=== PATIENT | female | born 1995 | race Caucasian/White ===

== ENCOUNTER 2020-09-10 09:54 | Emergency (ER) | payer OTHER, MEDICAID, SELFPAY ==
[2020-09-10 10:03] VITALS: PULSE 77; RESP 22; O2SAT 100
[2020-09-10 10:05] VITALS: BP 122/71; PULSE 72; RESP 18; TEMP 36.8; O2SAT 100; BMI 33.4
--- NOTE | 2020-09-10 10:27 | ED_ITS ---
HPI - General Adult General Chief complaint: Dizziness Stated complaint: 14wks , N/V, Hx lupus Time Seen by Provider: 09/10/20 09:56 Source: patient Mode of arrival: Ambulatory Limitations: no limitations History of Present Illness HPI narrative: Patient is a 25-year-old female is a at approximately 16 weeks EGA with a history of PTSD and migraines and lupus and seizures. She is not currently followed by primary doctor. 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 She states that during her workup in [facility] there was question of the diagnosis of lupus. She has had migraines since she was 5 years old. She does have an OB provider here in the local area and has had 1 visit up to this point. She currently has Unisom and B6 for nausea however has not taken it in the past week because she states it causes her to have ?night terrors? she also has vitamins. Is here for evaluation of the past couple days of having unsteadiness, some confusion, some concerns about knowing where she is. She also has had decreased oral intake. Is currently feeling nauseous. Is not having any vomiting or change in bowel habits. Related Data Home Medications Medication Instructions Recorded Confirmed doxylamine succinate 25 mg tablet 25 mg PO BEDTIME PRN 08/12/20 08/14/20 prenat.vits,paulo,[id number] 1 tab PO DAILY 08/12/20 08/14/20 pyridoxine (vitamin B6) 25 mg 25 mg PO DAILY 08/12/20 08/14/20 tablet Previous Rx's Medication Instructions Recorded ondansetron HCl [Zofran] 4 mg PO Q6H PRN #14 tab 09/10/20 Allergies Allergy/AdvReac Type Severity Reaction Status Date / Time banana Allergy Severe Swelling Verified 09/10/20 10:37 to throat - extreme venom-honey bee Allergy Severe Swelling Verified 09/10/20 10:37 and SOB diphenhydramine Allergy Intermediate Itchy Verified 09/10/20 10:37 [From Benadryl Allergy] feeling to throat : makes me freak out Review of Systems Constitutional Constitutional: Denies fever(s) ENT Ears, Nose, Mouth, and Throat: Denies vertigo, Reports dizziness and Reports disequilibrium Cardiovascular Cardiovascular: Denies chest pain and Denies dyspnea Respiratory Respiratory: Denies dyspnea Gastrointestinal Gastrointestinal: Denies abdominal pain, Denies change in bowel habits, Reports nausea and Denies vomiting Genitourinary Genitourinary: Denies dysuria Genitourinary: Denies dysuria and Denies vaginal discharge Musculoskeletal Musculoskeletal: Denies arthralgias and Denies myalgias Integumentary/Breasts Skin/Breast: Denies rash Neurologic Neurologic: Reports confusion, Denies vertigo, Reports dizziness and Reports disequilibrium Psychiatric Psychiatric: Reports confusion Hematologic/Lymphatic On Anticoagulants: No Allergic/Immunologic Allergic/Immunologic: Denies urticaria Patient History Medical History Acne (~2006) ADHD (~2011) Allergies (~2001) Anemia (~2002) Ankle fracture (~2004) Ankle pain (~2006) Anxiety (~1997) Aspergers' syndrome Asthma (~2005) Autism (~2015) Carpal tunnel syndrome (~2011) Chronic back pain (~2006) Depression (~2000) Disordered eating Eczema (~2004) Fatigue Finger fracture, left (~2007) Foot pain (~2006) Headache (~1998) Heavy menstrual period (~2004) History of being hospitalized (~2009) History of bipolar disorder (~2008) History of lumbar puncture (~2011) Hypertension (~2017) Joint pain (~2000) Kidney stones (~2013) Lupus (~2000) Marijuana use in remission (~05/2020) Migraine (~1998) Painful menstrual periods (~2006) Partial blindness (~2009) Pneumonia PTSD (post-traumatic stress disorder) (~2005) Seizure Shoulder pain (~2007) Smoker Social anxiety disorder (~1997) Syncopal episodes (~2018) Vertigo (~2013) Surgical History (Updated 08/12/20 @ 21:28 by Jaz Quinn) Anesthesia H/O dilation and curettage (~2009) S/P tonsillectomy and adenoidectomy (~1999) Status post laser lithotripsy of ureteral calculus (~2013) Surgical procedure planned Family History (Updated 08/12/20 @ 21:30 by Jaz Quinn) Mother Respiratory abnormalities Asthma History of prediabetes Bipolar 1 disorder Diabetes mellitus History of heart disease Mental health problem Father Family estrangement PTSD (post-traumatic stress disorder) Hypertension Mental health problem Grandmother Respiratory abnormalities Grandfather CVA (cerebral vascular accident) Rib fracture History of prediabetes High blood sugar Heart palpitations Alcohol addiction Depression Grandmother Family estrangement Grandfather Family estrangement Brother Asthma Family/Other Bipolar 1 disorder Social History marital status: unmarried,living together number of children: 0 household members: significant other lives independently: Yes pets and animals: No education level: high school (Working on GED) occupational status: employed ([employer] ) current occupational exposures/hazards: Yes special med needs: No Smoking Status: Former smoker (Started at age 3 : Quit 2017) Tobacco: How many years used: 20 second hand exposure: No alcohol intake: former (pre- : rare ) substance use type: does not use and marijuana (Quit with diagnosis) Smoking Status: Former smoker (Started at age 3 : Quit 2017) Exam Initial Vital Signs Initial Vital Signs: Vital Signs Pulse Rate 77 09/10/20 10:03 Respiratory Rate 22 09/10/20 10:03 Pulse Oximetry 100 09/10/20 10:03 Const General: cooperative, healthy appearing, comfortable and well developed Limitations: mental status not altered HENMT Head: normal to inspection and normocephalic Resp Effort & Inspection: normal respiratory effort Auscultation: clear to auscultation bilaterally Cardio Rate: regular rate Rhythm: regular rhythm GI Palpation: soft and No tender Skin Lesions: no lesions Rashes: no rashes Neuro General: patient alert and patient awake Cognition: normal cognition Speech: speech normal Extrem General: capillary refill normal Psych Appearance: grossly normal and well kempt Scores GCS [place] coma scale eye opening: Spontaneous Joy coma scale motor response: Obey commands Course Orders Ordered: ED Orders 09/10/20 09:57 EKG-12 Lead Stat 09/10/20 10:44 Complete Blood Count AUTO DIFF Stat Comprehensive Metabolic Panel Stat Ethanol (ETOH) Stat Lipase Stat Discontinued Medications Sodium Chloride (Normal Saline 0.9%) 1,000 mls @ 1,000 mls/hr IV BOLUS ONE Stop: 09/10/20 11:26 Last Admin: 09/10/20 10:42 Dose: 1,000 mls/hr Documented by: SAM Ondansetron HCl (Ondansetron 4 Mg/2 Ml Inj) 4 mg IV NOW ONE Stop: 09/10/20 10:28 Last Admin: 03/17/21 10:42 Dose: 4 mg Documented by: BTONER Vital Signs Vital signs: Vital Signs - 8 hr 09/10/20 10:03 09/10/20 10:05 09/10/20 10:30 Temperature 98.2 F Pulse Rate 77 72 89 Respiratory Rate 22 18 26 H Blood Pressure 122/71 Pulse Oximetry 100 100 99 09/10/20 11:00 09/10/20 11:35 09/10/20 12:00 Temperature Pulse Rate 86 88 86 Respiratory Rate 24 19 Blood Pressure 126/68 135/77 Pulse Oximetry 100 100 100 Medical Decision Making Lab Data Lab results reviewed: Yes I reviewed the patient's lab results. Result diagrams: 09/10/20 10:44 09/10/20 10:44 Labs: Lab Results 09/10/20 09/10/20 Range/Units 10:44 10:44 WBC 10.9 (4.5-11.0) X10^3/uL RBC 5.05 (4.0-5.2) X10^6/uL Hgb 11.4 L (12.0-16.0) g/dL Hct 35.0 L (36-46) % MCV 70.0 L (80-100) fL MCH 22.6 L (26-34) PG MCHC 32.5 (30-36) % RDW 14.6 (11.6-14.8) % Plt Count 192 (150-400) X10^3/uL Neut % (Auto) 73.2 (50-75) % Lymph % (Auto) 18.1 L (25-40) % Barren % (Auto) 6.9 (3-14) % Eos % (Auto) 0.9 L (2-4) % Baso % (Auto) 0.9 (0-2) % Neut # (Auto) 8000 H (7335-0984) /uL Lymph # (Auto) 2000 (2439-3093) /uL Barren # (Auto) 800 (0-900) /uL Eos # (Auto) 100 (0-450) /uL Baso # (Auto) 100 (0-100) /uL Sodium 135 L (137-145) mmol/L Potassium 3.8 (3.4-5.1) mmol/L Chloride 106 (98-107) mmol/L Carbon Dioxide 19 L (22-32) mmol/L BUN 6 L (7-17) mg/dL Creatinine 0.55 (0.52-1.04) mg/dL Estimated GFR > 60.0 (>60) mL/min BUN/Creatinine Ratio 10.9 (6-22) Glucose 86 (70-100) mg/dL Calcium 9.4 (8.4-10.2) mg/dL Total Bilirubin 0.3 (0.2-1.3) mg/dL AST 19 (14-36) IU/L ALT 9 (<35) IU/L Alkaline Phosphatase 49 (38-126) U/L Total Protein 7.4 (6.3-8.2) g/dL Albumin 4.2 (3.5-5.0) g/dL Globulin 3.2 (1.7-4.1) g/dL Albumin/Globulin Ratio 1.3 (1.0-2.8) Lipase 36 (23-300) U/L Ethyl Alcohol < 10 ( - 10) mg/dL Urine Dip Bedside Urine Glucose Negative Bedside Urine Bilirubin - Negative Bedside Urine Ketone +++ 80 Urine Specific [place] 1.020 Bedside Urine Occult Blood - Negative Bedside Urine pH 7.0 Bedside Urine Protein - Negative Bedside Urine Urobilinogen - Negative Bedside Urine Nitrite - Negative Bedside Urine Leukocytes - Negative Esterase Point of care testing: Urine Dip Bedside Urine Glucose Negative Bedside Urine Bilirubin - Negative Bedside Urine Ketone +++ 80 Urine Specific [place] 1.020 Bedside Urine Occult Blood - Negative Bedside Urine pH 7.0 Bedside Urine Protein - Negative Bedside Urine Urobilinogen - Negative Bedside Urine Nitrite - Negative Bedside Urine Leukocytes - Negative Esterase ECG Data Attestation: I personally reviewed and interpreted this ECG as follows: Prior ECG tracings: not available for review Interpretation: Sinus rhythm Normal axis Normal QRS Normal QTC No ST T wave changes MDM Narrative Medical decision making narrative: Patient has a nonfocal neurologic exam she does have a slightly elevated hemoglobin and hematocrit and also ketones in her urine. She also has been fairly nauseous with decreased oral intake. I suspect that many of her symptoms are related to being somewhat dehydrated. She did feel better after fluids. She is tolerating oral intake. Low suspicion for CVA or TIA. She has a follow-up with OB tomorrow. Will send a prescription for Zofran to see if this does not control her nausea somewhat better than the Unisom/B 6. She was given return precautions and follow-up instructions. She expressed understanding and agreement. Discharge Plan Departure Patient Disposition: Home Clinical Impression: , Dehydration Instructions: Nausea and Vomiting-Adult Activity Restrictions/Additional Instructions: I recommend that you keep all of your scheduled medical appointments. Be sure to increase your fluid intake like we discussed. Return to the emergency department for any new or worsening symptoms Prescriptions: New ondansetron HCl [Zofran] 4 mg tablet 4 mg PO Q6H PRN (Reason: nausea and vomiting) Qty: 14 RF: 0 No Action prenat.vits,paulo,[id number] Tablet 1 tab PO DAILY RF: 0 Unisom (doxylamine) 25 mg tablet 25 mg PO BEDTIME PRNRF: 0 pyridoxine (vitamin B6) 25 mg tablet 25 mg PO DAILY RF: 0
[2020-09-10 10:30] VITALS: PULSE 89; RESP 26; O2SAT 99
[2020-09-10] MEDS: SODIUM CHLORIDE 0.9% 1,000 ML 1000 ML IV (10:42)
[2020-09-10] MEDS: ONDANSETRON 4 MG/2 ML INJ IV (10:42)
[2020-09-10 10:53] LABS: Add Manual Diff / Slide Review NO; Basophils Absolute Auto 100 /uL (0-100); Basophils Percent Auto 0.9 % (0-2); Eosinophils Absolute Auto 100 /uL (0-450); Eosinophils Percent Auto 0.9 % (2-4); Hemoglobin 11.4 g/dL (12.0-16.0); Lymphocytes Absolute Auto 2000 /uL (1100-4500); Lymphocytes Percent Auto 18.1 % (25-40); Mean Corpuscular HGB Conc 32.5 % (30-36); Mean Corpuscular Hemoglobin 22.6 PG (26-34); Monocytes Absolute Auto 800 /uL (0-900); Monocytes Percent Auto 6.9 % (3-14); Neutrophils Absolute Auto 8000 /uL (1500-7000); Neutrophils Percent Auto 73.2 % (50-75); Platelet Count 192 X10^3/uL (150-400); Red Blood Cell Count 5.05 X10^6/uL (4.0-5.2); Red Cell Distribution Width 14.6 % (11.6-14.8); White Blood Cell Count 10.9 X10^3/uL (4.5-11.0)
[2020-09-10 11:00] VITALS: PULSE 86; RESP 24; O2SAT 100
[2020-09-10 11:08] LABS: Alanine Aminotransferase 9 IU/L (<35); Albumin 4.2 g/dL (3.5-5.0); Albumin Globulin Ratio 1.3 (1.0-2.8); Alkaline Phosphatase 49 U/L (38-126); Aspartate Aminotransferase 19 IU/L (14-36); BUN Creatinine Ratio 10.9 (6-22); Bilirubin Total 0.3 mg/dL (0.2-1.3); Blood Urea Nitrogen 6 mg/dL (7-17); Calcium 9.4 mg/dL (8.4-10.2); Carbon Dioxide 19 mmol/L (22-32); Chloride 106 mmol/L (98-107); Estimated Glomerular Filt Rate > 60.0 mL/min (>60); Ethanol (ETOH) < 10 mg/dL; Globulin 3.2 g/dL (1.7-4.1); Glucose 86 mg/dL (70-100); HEMOLYSIS < 15 (0-50); Lipase 36 U/L (23-300); Potassium 3.8 mmol/L (3.4-5.1); Sodium 135 mmol/L (137-145); Total Protein 7.4 g/dL (6.3-8.2)
[2020-09-10 11:35] VITALS: BP 126/68; PULSE 88; RESP 19; O2SAT 100
[2020-09-10 12:00] VITALS: BP 135/77; PULSE 86; O2SAT 100
== END 2020-09-10 12:29 | disposition home or self-care (01) ==
PROVIDERS: Emergency Provider Emergency Medicine; Referring Provider Emergency Medicine
DX: O26.92 Pregnancy related conditions, unspecified, second trimester (principal); E86.0 Dehydration; R41.0 Disorientation, unspecified; R11.0 Nausea; Z3A.16 16 weeks gestation of pregnancy
CPT/HCPCS: 36415; 80053; 80320; 81003; 83690; 85025; 93005; 96361; 96374; 99283; 99284; J2405

== ENCOUNTER 2020-09-16 17:18 | Emergency (ER) | payer OTHER, MEDICAID, SELFPAY ==
[2020-09-16] VITALS (16 sets, daily range): BP systolic 99–144; BP diastolic 51–94; PULSE 84–109; RESP 17–28; TEMP 36.6; O2SAT 97–100
--- NOTE | 2020-09-16 18:12 | ED_ITS ---
HPI - Headache General Chief Complaint: Headache Stated Complaint: states dehydration symptoms Time Seen by Provider: 09/16/20 18:12 Source: patient Mode of arrival: Wheelchair Limitations: no limitations History of Present Illness HPI Narrative: Patient is a 25-year-old female who is to I evaluated the emergency department in the past for nausea and vomiting here for evaluation of dehydration symptoms. Also a migraine headache. She is not currently on any migraine medications. She is not febrile. She has not have any abdominal discomfort or vaginal bleeding or loss of fluid. She states the Zofran is working for her somewhat but when she takes a ?too late? her nausea worsens. She does have an appointment in the next 2 days with a new primary doctor and someone who is going to follow her for her OB care. She was initially sent to the walk-in clinic who sent her to the emergency department. Related Data Home Medications Medication Instructions Recorded Confirmed doxylamine succinate 25 mg tablet 25 mg PO BEDTIME PRN 08/12/20 09/11/20 prenat.vits,paulo,knc-sghb-cycub 1 tab PO DAILY 08/12/20 09/11/20 pyridoxine (vitamin B6) 25 mg 25 mg PO DAILY 08/12/20 09/11/20 tablet Previous Rx's Medication Instructions Recorded ondansetron HCl [Zofran] 4 mg PO Q6H PRN #14 tab 09/10/20 hydrocodone 5 mg-acetaminophen 300 1 tab PO Q6H PRN #10 tab 09/11/20 mg tablet hkwgqwqkdb-podsukgjcjmmn-nogd 1 cap PO Q6H PRN #10 cap 09/16/20 [Fioricet] ahkeqbwmme-ffgwlqzfrmvvz-madh 1 cap PO Q6H PRN #10 cap 09/16/20 [Fioricet] Allergies Allergy/AdvReac Type Severity Reaction Status Date / Time banana Allergy Severe Swelling Verified 09/11/20 13:33 to throat - extreme venom-honey bee Allergy Severe Swelling Verified 09/11/20 13:33 and SOB diphenhydramine Allergy Intermediate Itchy Verified 09/11/20 13:33 [From Benadryl Allergy] feeling to throat : makes me freak out Review of Systems Constitutional Constitutional: Reports fatigue, Denies fever(s) and Reports headache(s) ENT Ears, Nose, Mouth, and Throat: Denies vertigo, Denies dizziness and Reports headache(s) Cardiovascular Cardiovascular: Denies chest pain and Denies dyspnea Respiratory Respiratory: Denies dyspnea Gastrointestinal Gastrointestinal: Denies abdominal pain, Reports nausea and Reports vomiting Genitourinary Genitourinary: Denies vaginal discharge Musculoskeletal Musculoskeletal: Denies arthralgias and Denies myalgias Integumentary/Breasts Skin/Breast: Denies rash Neurologic Neurologic: Denies vertigo, Denies dizziness and Reports headache(s) Comments: Feels like she could have a seizure Endocrine Endocrine: Reports fatigue Hematologic/Lymphatic On Anticoagulants: No Patient History Medical History Acne (~2006) ADHD (~2011) Allergies (~2001) Anemia (~2002) Ankle fracture (~2004) Ankle pain (~2006) Anxiety (~1997) Aspergers' syndrome Asthma (~2005) Autism (~2015) Carpal tunnel syndrome (~2011) Chronic back pain (~2006) Depression (~2000) Disordered eating Eczema (~2004) Fatigue Finger fracture, left (~2007) Foot pain (~2006) Headache (~1998) Heavy menstrual period (~2004) History of being hospitalized (~2009) History of bipolar disorder (~2008) History of lumbar puncture (~2011) Hypertension (~2017) Joint pain (~2000) Kidney stones (~2013) Lupus (~2000) Marijuana use in remission (~05/2020) Migraine (~1998) Painful menstrual periods (~2006) Partial blindness (~2009) Pneumonia PTSD (post-traumatic stress disorder) (~2005) Seizure Shoulder pain (~2007) Smoker Social anxiety disorder (~1997) Syncopal episodes (~2018) Vertigo (~2013) Surgical History (Updated 08/12/20 @ 21:28 by Jaz Quinn) Anesthesia H/O dilation and curettage (~2009) S/P tonsillectomy and adenoidectomy (~1999) Status post laser lithotripsy of ureteral calculus (~2013) Surgical procedure planned Family History (Updated 08/12/20 @ 21:30 by Jaz Quinn) Mother Respiratory abnormalities Asthma History of prediabetes Bipolar 1 disorder Diabetes mellitus History of heart disease Mental health problem Father Family estrangement PTSD (post-traumatic stress disorder) Hypertension Mental health problem Grandmother Respiratory abnormalities Grandfather CVA (cerebral vascular accident) Rib fracture History of prediabetes High blood sugar Heart palpitations Alcohol addiction Depression Grandmother Family estrangement Grandfather Family estrangement Brother Asthma Family/Other Bipolar 1 disorder Social History marital status: unmarried,living together number of children: 0 household members: significant other lives independently: Yes pets and animals: No education level: high school (Working on GED) 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 ) current occupational exposures/hazards: Yes special med needs: No Smoking Status: Former smoker Tobacco: How many years used: 20 second hand exposure: No alcohol intake: former (pre- : rare ) substance use type: does not use and marijuana (Quit with diagnosis) Smoking Status: Former smoker tobacco type: cigarettes alcohol intake frequency: 0-2 drinks per day Substance Use Type: does not use Exam Initial Vital Signs Initial Vital Signs: Vital Signs Temperature 97.8 F 09/16/20 17:52 Pulse Rate 86 09/16/20 17:52 Respiratory Rate 18 09/16/20 17:52 Blood Pressure 132/87 09/16/20 17:52 Pulse Oximetry 99 09/16/20 17:52 Const General: cooperative Limitations: mental status not altered HENMT Head: normal to inspection and normocephalic Resp Effort & Inspection: normal respiratory effort Auscultation: clear to auscultation bilaterally Cardio Rhythm: regular rhythm GI Inspection: non-distended Skin Lesions: no lesions Rashes: no rashes Neuro General: patient alert, patient awake and patient oriented x3 Cognition: normal cognition Extrem General: normal to inspection and capillary refill normal Psych Appearance: grossly normal and well kempt Course Orders Ordered: ED Orders 09/16/20 18:15 Complete Blood Count AUTO DIFF Stat Comprehensive Metabolic Panel Stat Lipase Stat 09/16/20 18:51 CT head/brain wo con Stat 09/16/20 19:21 UA dip and micro [Urinalysis and Microscopic] Stat Discontinued Medications Acetaminophen (Acetaminophen 325 Mg Tablet) 650 mg PO NOW ONE Stop: 09/16/20 18:18 Last Admin: 09/16/20 18:23 Dose: 650 mg Documented by: BETH Acetaminophen/Butalbital/Caffeine (Butalb/Apap/Caffeine 50/325/40 Tablet) 1 each PO NOW ONE Stop: 09/16/20 23:30 Last Admin: 09/16/20 23:45 Dose: Not Given Documented by: BETH Sodium Chloride (Normal Saline 0.9%) 1,000 mls @ 1,000 mls/hr IV BOLUS ONE Stop: 09/16/20 19:12 Last Infusion: 09/16/20 20:16 Dose: 0 mls/hr Documented by: Admin: 09/16/20 18:23 Dose: 1,000 mls/hr Documented by: BETH Lorazepam (Lorazepam 2 Mg/Ml Inj) 1 mg IV NOW ONE Stop: 09/16/20 18:52 Last Admin: 09/16/20 18:55 Dose: 1 mg Documented by: BETH Lorazepam (Lorazepam 2 Mg/Ml Inj) 1 mg IV NOW ONE Stop: 09/16/20 20:11 Last Admin: 09/16/20 20:17 Dose: 1 mg Documented by: BETH Lorazepam (Lorazepam 2 Mg/Ml Inj) 1 mg IV NOW ONE Stop: 09/16/20 20:40 Last Admin: 09/16/20 23:45 Dose: Not Given Documented by: BETH Metoclopramide HCl (Metoclopramide 10 Mg/2 Ml Inj) 10 mg IV NOW ONE Stop: 09/16/20 20:12 Last Admin: 09/16/20 20:19 Dose: 10 mg Documented by: BETH Vital Signs Vital signs: Vital Signs - 8 hr 09/16/20 18:57 09/16/20 19:00 09/16/20 19:30 Pulse Rate 109 H 96 H 94 H Respiratory Rate Blood Pressure 144/94 H 131/85 Pulse Oximetry 99 98 100 09/16/20 20:00 09/16/20 20:17 09/16/20 20:30 Pulse Rate 91 H 87 104 H Respiratory Rate 24 Blood Pressure 114/62 107/56 L Pulse Oximetry 99 99 98 09/16/20 21:00 09/16/20 21:30 09/16/20 22:00 Pulse Rate 87 91 H 90 Respiratory Rate Blood Pressure 104/63 109/57 L 104/59 L Pulse Oximetry 98 97 97 09/16/20 22:30 09/16/20 23:00 09/16/20 23:30 Pulse Rate 84 87 91 H Respiratory Rate Blood Pressure 99/55 L 100/51 L 104/61 Pulse Oximetry 98 98 97 MDM - Headache Lab Data Attestation: I reviewed the patient's lab results. Result diagrams: 09/16/20 18:15 09/16/20 18:15 Labs: Lab Results 09/16/20 09/16/20 09/16/20 Range/Units 18:15 18:15 19:21 WBC 15.0 H (4.5-11.0) X10^3/uL RBC 4.92 (4.0-5.2) X10^6/uL Hgb 11.0 L (12.0-16.0) g/dL Hct 34.1 L (36-46) % MCV 69.2 L (80-100) fL MCH 22.3 L (26-34) PG MCHC 32.2 (30-36) % RDW 14.9 H (11.6-14.8) % Plt Count 203 (150-400) X10^3/uL Neut % (Auto) 77.8 H (50-75) % Lymph % (Auto) 14.1 L (25-40) % [place] % (Auto) 6.3 (3-14) % Eos % (Auto) 1.2 L (2-4) % Baso % (Auto) 0.6 (0-2) % Neut # (Auto) 99814 H (0905-8110) /uL Lymph # (Auto) 2100 (0543-3255) /uL [place] # (Auto) 1000 H (0-900) /uL Eos # (Auto) 200 (0-450) /uL Baso # (Auto) 100 (0-100) /uL RBC Morphology Not Reportable Hypochromasia 3+ H Anisocytosis 1+ H Microcytosis 3+ H Sodium 137 (137-145) mmol/L Potassium 4.1 (3.4-5.1) mmol/L Chloride 105 (98-107) mmol/L Carbon Dioxide 25 (22-32) mmol/L BUN 5 L (7-17) mg/dL Creatinine 0.58 (0.52-1.04) mg/dL Estimated GFR > 60.0 (>60) mL/min BUN/Creatinine Ratio 8.6 (6-22) Glucose 88 (70-100) mg/dL Calcium 9.3 (8.4-10.2) mg/dL Total Bilirubin 0.2 (0.2-1.3) mg/dL AST 34 (14-36) IU/L ALT 24 (<35) IU/L Alkaline Phosphatase 48 (38-126) U/L Total Protein 7.0 (6.3-8.2) g/dL Albumin 4.0 (3.5-5.0) g/dL Globulin 3.0 (1.7-4.1) g/dL Albumin/Globulin Ratio 1.3 (1.0-2.8) Lipase 37 (23-300) U/L Urine Color Yellow Urine Appearance Cloudy Urine pH 7.0 (4.5-8.0) Ur Specific [place] 1.015 (1.000-1.035) Urine Protein Negative (Negative) Urine Glucose (UA) Negative (Negative) g/dL Urine Ketones 1+ H (NEGATIVE) Urine Occult Blood Negative (Negative) Urine Nitrate Negative (Negative) Urine Bilirubin Negative (NEGATIVE) Urine Urobilinogen 0.2 (0.2) E.U./dL Ur Leukocyte Esterase Negative (NEGATIVE) Urine RBC None seen (0-5/HPF) Urine WBC None seen (0-5/HPF) Ur Squamous Epith Cells 1-5 /hpf (0-5/HPF) Ur Transition Epith Cell 1-5/hpf (0-5/HPF) Other Crystals 1+ amorphous Urine Bacteria None seen (None) Ur Culture Indicated? Cult not indicated Urine Dip Bedside Urine Glucose Negative Bedside Urine Bilirubin - Negative Bedside Urine Ketone +/- 5 Urine Specific [place] 1.020 Bedside Urine Occult Blood - Negative Bedside Urine pH 7 Bedside Urine Protein - Negative Bedside Urine Urobilinogen - Negative Bedside Urine Nitrite - Negative Bedside Urine Leukocytes - Negative Esterase Imaging Data CT scan - head: Radiologist's Impression: Libia Dennis 25 F [address] [id number] Scan ReportSigned Patient: Libia DennisMR#: [id number]: 1995Acct:[id number]/Sex: 25 / FDate of Service: 09/16/20Loc: EDAccession Number: [id number] Procedure: CT head/brain wo con Ordering Provider: Brian Ocampo D.O. PROCEDURE: CT HEAD/BRAIN WO CON INDICATIONS: headache TECHNIQUE: Noncontrast 4.5 mm thick angled axial sections acquired from the foramen magnum to the vertex, with coronal and sagittal reformats. For radiation dose reduction, the following was used: automated exposure control, adjustment of mA and/or kV according to patient size. COMPARISON: None. FINDINGS: Image quality: Excellent. CSF spaces: Basal cisterns are patent. No extra-axial fluid collections. Ventricles are normal in size and shape. Brain: No midline shift. No intracranial masses or hemorrhage. Vega-white matter interface is normal. Skull and face: Calvarium and visualized facial bones are intact, without baig spicious lesions. Sinuses: Visualized sinuses and mastoids are clear. IMPRESSION: No acute intracranial disease process. Dictated by: Anabella Andre MD, PhD on 09/16/2020 at 19:47 Approved by: Anabella Andre MD, PhD on 09/16/2020 at 19:49 [facility] Narrative Medical decision making narrative: Patient does have a history of migraines and also has a history of seizures although she is not on any medication to prevent these symptoms. She also does not have a neurologist that she sees. She is also 14 weeks but is not having any OB symptoms. She has had some nausea and vomiting and feels dehydrated. She states she feels like that is seizure can come on. She is also having pain behind her eye. Patient had a couple episodes here in the emergency department where it appeared that she was having a seizure she would be shaking and her eyes would roll back in her head but when you would call her name she would look at you when she would answer questions. I do not feel like this was seizure-like activity. Potentially pseudoseizures verses anxiety worse is an atypical migraine. She was given Ativan several times. She was also given Reglan and she did have an uneasy feeling afterwards but this resolved on its on. She states she cannot take Benadryl because it causes her throat to swell. She was given fluids. Does have a leukocytosis but she has also been vomiting and she is . There is no indication of any signs of infection. Head CT was ordered because she has not had a headache like this in some time. Had also given her clinical presentation. Her head CT was unremarkable. Patient was in the emergency department here for an extended period of time. She was able to sleep and when she woke up she stated that she did feel somewhat better. She has an appoin tment with a new primary/OB provider in the next couple days. Give her prescription for Fioricet to try to control her headaches. I would she stated that she felt like that the Zofran will work for her until she sees her primary doctor as long she takes it on time. I will not switch heard any new medication because of this. She was given strict return precautions and follow-up instructions. She expressed understanding and agreement. Discharge Plan Departure Patient Disposition: Home Clinical Impression: Migraine, Instructions: Migraine -- Adult Activity Restrictions/Additional Instructions: Recommend that you continue all of your medications as directed. It is important that you continue to stay hydrated. Keep your appointment with your new primary doctor on . A prescription for an as needed headache medicine was electronically transmitted to [facility] in [place]. Take it as directed and as needed. Return to the emergency department for any new or wo rsening symptoms Prescriptions: New yricjazsno-doxxdhtxfdekm-xexe [Fioricet] 50-300-40 mg capsule 1 cap PO Q6H PRN (Reason: pain) Qty: 10 RF: 0 qwmdmldolq-oixrbbrfwkrzw-pjgu [Fioricet] 50-300-40 mg capsule 1 cap PO Q6H PRN (Reason: pain) Qty: 10 RF: 0 No Action prenat.vits,paulo,mqr-kzns-wopte Tablet 1 tab PO DAILY RF: 0 Unisom (doxylamine) 25 mg tablet 25 mg PO BEDTIME PRNRF: 0 pyridoxine (vitamin B6) 25 mg tablet 25 mg PO DAILY RF: 0 hydrocodone-acetaminophen 5-300 mg tablet 1 tab PO Q6H PRN (Reason: pain) Qty: 10 RF: 0 ondansetron HCl [Zofran] 4 mg tablet 4 mg PO Q6H PRN (Reason: nausea and vomiting) Qty: 14 RF: 0 Referrals: Miscellaneous,Doctor, MD [Primary Care Provider] - Stand Alone Forms: Work Release Note
[2020-09-16] MEDS: ACETAMINOPHEN 325 MG TABLET 650 MG PO (18:23)
[2020-09-16] MEDS: SODIUM CHLORIDE 0.9% 1,000 ML 1000 ML IV (18:23)
[2020-09-16 18:26] LABS: Add Manual Diff / Slide Review NO; Basophils Absolute Auto 100 /uL (0-100); Basophils Percent Auto 0.6 % (0-2); Eosinophils Absolute Auto 200 /uL (0-450); Eosinophils Percent Auto 1.2 % (2-4); Hematocrit 34.1 % (36-46); Lymphocytes Absolute Auto 2100 /uL (1100-4500); Lymphocytes Percent Auto 14.1 % (25-40); Mean Corpuscular HGB Conc 32.2 % (30-36); Mean Corpuscular Hemoglobin 22.3 PG (26-34); Mean Corpuscular Volume 69.2 fL (80-100); Monocytes Absolute Auto 1000 /uL (0-900); Monocytes Percent Auto 6.3 % (3-14); Neutrophils Absolute Auto 11700 /uL (1500-7000); Neutrophils Percent Auto 77.8 % (50-75); Platelet Count 203 X10^3/uL (150-400); Red Blood Cell Count 4.92 X10^6/uL (4.0-5.2); Red Cell Distribution Width 14.9 % (11.6-14.8)
[2020-09-16 18:38] LABS: Alanine Aminotransferase 24 IU/L (<35); Albumin Globulin Ratio 1.3 (1.0-2.8); Alkaline Phosphatase 48 U/L (38-126); Aspartate Aminotransferase 34 IU/L (14-36); BUN Creatinine Ratio 8.6 (6-22); Bilirubin Total 0.2 mg/dL (0.2-1.3); Blood Urea Nitrogen 5 mg/dL (7-17); Calcium 9.3 mg/dL (8.4-10.2); Carbon Dioxide 25 mmol/L (22-32); Chloride 105 mmol/L (98-107); Estimated Glomerular Filt Rate > 60.0 mL/min (>60); Glucose 88 mg/dL (70-100); HEMOLYSIS < 15 (0-50); Lipase 37 U/L (23-300); Potassium 4.1 mmol/L (3.4-5.1); Sodium 137 mmol/L (137-145)
--- NOTE | 2020-09-16 18:51 | DI.CT.S_ITS ---
PROCEDURE: CT HEAD/BRAIN WO CON INDICATIONS: headache TECHNIQUE: Noncontrast 4.5 mm thick angled axial sections acquired from the foramen magnum to the vertex, with coronal and sagittal reformats. For radiation dose reduction, the following was used: automated exposure control, adjustment of mA and/or kV according to patient size. COMPARISON: None. FINDINGS: Image quality: Excellent. CSF spaces: Basal cisterns are patent. No extra-axial fluid collections. Ventricles are normal in size and shape. Brain: No midline shift. No intracranial masses or hemorrhage. Vega-white matter interface is normal. Skull and face: Calvarium and visualized facial bones are intact, without suspicious lesions. Sinuses: Visualized sinuses and mastoids are clear. IMPRESSION: No acute intracranial disease process. Dictated by: Anabella Andre MD, PhD on 09/16/2020 at 19:47 Approved by: Anabella Andre MD, PhD on 09/16/2020 at 19:49
[2020-09-16 18:55] LABS: Anisocytosis 1+; Hypochromasia 3+; Microcytosis 3+
[2020-09-16] MEDS: LORazepam 2 MG/ML INJ 1 MG IV ×2 (18:55→20:17)
[2020-09-16 20:10] LABS: Bacteria Urine None Seen; RBC Urine None Seen (0-5/HPF); WBC Urine None Seen (0-5/HPF)
[2020-09-16 20:11] LABS: Appearance Urine UA CLOUDY; Bilirubin Urine UA NEGATIVE (NEGATIVE); Color Urine UA YELLOW; Glucose Urine UA NEGATIVE (Negative); Ketones Urine UA 1+ (NEGATIVE); Leukocyte Esterase Urine UA NEGATIVE (NEGATIVE); Nitrite Urine UA NEGATIVE (Negative); Occult Blood Urine UA NEGATIVE (Negative); Protein Urine UA NEGATIVE (Negative); Specific Gravity Urine UA 1.015 (1.000-1.035); Urobilinogen Urine UA 0.2 E.U./dL (0.2)
[2020-09-16 20:19] LABS: Squamous Epithelial Cell Urine 1-5 /HPF (0-5/HPF); Transitional Epi Cells Urine 1-5/HPF (0-5/HPF)
[2020-09-16] MEDS: METOCLOPRAMIDE 10 MG/2 ML INJ IV (20:19)
[2020-09-16 20:20] LABS: Culture Indicated Urine Cult Not Indicated
[2020-09-16 20:21] LABS: Other Crystals Urine 1+ Amorphous
--- NOTE | 2020-09-16 21:34 | PC.NURSE ---
2017: Seizure like activity and dry heaves. notified. 1mg IV Ativan given. Pt able to talk to staff during episode and A/O immediately after. Seizure pads placed, suction in room setup. 2099: Another episode of seizure activity. notified. 1mg Atvian given. Pt talking with RN and fiance appropriately with intermittent shaking and eyes rolling back. Reglan given for nausea. 2129: Pt resting in room. NS infused. VSS.
--- NOTE | 2020-09-16 23:46 | PC.NURSE ---
Pt declined head ache med due to it having caffeine and she wanted to go home to sleep.
== END 2020-09-16 23:53 | disposition home or self-care (01) ==
PROVIDERS: Emergency Provider Emergency Medicine
DX: G43.909 Migraine, unspecified, not intractable, without status migrainosus (principal); R11.2 Nausea with vomiting, unspecified
CPT/HCPCS: 36415; 70450; 80053; 81001; 81003; 83690; 85025; 96361; 96374; 96375; 96376; 99284; J2060; J2765

== ENCOUNTER → 2020-10-09 15:07 | Outpatient (CLI) | payer OTHER, MEDICAID, SELFPAY ==
[2020-10-09 16:22] LABS: Add Manual Diff / Slide Review NO; Basophils Absolute Auto 100 /uL (0-100); Basophils Percent Auto 0.5 % (0-2); Eosinophils Absolute Auto 200 /uL (0-450); Eosinophils Percent Auto 1.3 % (2-4); Hemoglobin 10.5 g/dL (12.0-16.0); Lymphocytes Absolute Auto 1600 /uL (1100-4500); Mean Corpuscular Hemoglobin 22.1 PG (26-34); Monocytes Absolute Auto 1000 /uL (0-900); Monocytes Percent Auto 7.5 % (3-14); Neutrophils Absolute Auto 10500 /uL (1500-7000); Neutrophils Percent Auto 78.7 % (50-75); Platelet Count 181 X10^3/uL (150-400); Red Blood Cell Count 4.77 X10^6/uL (4.0-5.2); White Blood Cell Count 13.3 X10^3/uL (4.5-11.0)
[2020-10-10 06:59] LABS: RPR Screen Non Reactive (Non Reactive)
[2020-10-10 08:10] LABS: Varicella IgG Antibody 292 index (Immune >165)
[2020-10-10 15:43] LABS: Hepatitis B Surface Antigen NEGATIVE s/c (NEGATIVE); Rubella Antibody IgG 49.7 IU/mL (>15)
[2020-10-10 15:57] LABS: HIV 1 & 2 Ab/Ag 4th Gen Combo NEGATIVE (NEGATIVE); Hep C Virus Ab w/Reflex Quant NEGATIVE s/c (NEGATIVE)
[2020-10-11 20:07] LABS: Estriol, Free 1.72 ng/mL (.); Inhibin A, Dimeric 103.42 pg/mL (.); Inhibin A, MoM 0.83 (.); Maternal Ethnicity Caucasian (.); Maternal Weight 225 lbs (.); Number of Fetuses No (.); OSBR Risk 1 IN 2047 (.); Results Report (.); Test Results *Screen Negative* (.); hCG, MoM 0.64 (.); hCG, Serum 13719 mIU/mL (.)
== END ==
PROVIDERS: PCP Family Medicine; Referring Provider Obstetrics & Gynecology; Visit Provider Obstetrics & Gynecology
DX: Z34.82 Encounter for supervision of other normal pregnancy, second trimester (principal); Z3A.18 18 weeks gestation of pregnancy
CPT/HCPCS: 36415; 80055; 82105; 82677; 84702; 86336; 86787; 86803; 86850; 86900; 86901; 87389

== ENCOUNTER → 2020-10-24 12:44 | Outpatient (CLI) | payer OTHER, MEDICAID, SELFPAY ==
--- NOTE | 2020-10-24 12:45 | DI.US.S_ITS ---
PROCEDURE: US OB >= 14 WEEKS FETUS INDICATIONS: ANATOMY OUTSIDE/PRIOR DATING DATA: Last menstrual period (LMP): 06/04/20. LMP-based estimated date of delivery (JOSHUA): 03/11/21 . First dating scan (date and location): 08/14/[address] Gore . Estimated date of delivery (JOSHUA) from first dating scan: 03/11/21 . TECHNIQUE: Real-time scanning was performed of the fetus, with image documentation and biometric measurements. Endovaginal scanning: Not needed COMPARISON: [facility], , OB >= 14 WEEKS FETUS, 10/09/2020, 15:01. FINDINGS: General: A single living intrauterine gestation is present. Presentation: Variable. Placenta: Placental position is anterior , without previa. Amniotic fluid index: 13.3 cm, normal range is 5-24 cm. heart rate: 149 beats per minute. Maternal cervical canal: 3.6 cm long. Normal lower limit is 2.5 cm. biometrics: Biparietal diameter: 4.5 cm, 19 weeks 5 days Head circumference: 17.3 cm, 19 weeks 6 days Abdominal circumference: 16.3 cm, 21 weeks 3 days Femur length: 3.3 cm, 20 weeks 3 days Estimated gestational age from initial scan: 20 weeks 2 days Composite gestational age from present scan: 20 weeks 3 days Estimated weight and percentile: 376 g, 73rd percentile Measurement variability for biometric dating: +/- 7 days from 14 weeks to 15 weeks 6 days gestation, +/- 10 days from 16 weeks to 21 weeks 6 days gestation, +/- 2 weeks from 22 weeks to 27 weeks 6 days gestation, +/- 3 weeks for 28 weeks gestation or later. weight reference: 4500 g or EFW >90/95% is considered macrosomia or large for gestational age. EFW <10% is small for gestational age. EFW 5% or less is considered intra-uterine growth restriction. Anatomic survey: Neuro: Ventricles are non-dilated at less than 10 mm. Cisterna magna is normal at 3-11 mm. Cerebellum is normal in size and morphology. Nuchal skin fold: Normal at less than 6 mm between 14-21 weeks gestational age. Face: Nose and lips, facial profile are normal. Spine: No evidence for spina bifida. Heart: 4-chambered heart is present, with normal ventricular outflow tracts. Diaphragm: Diaphragm is intact. Stomach: Left-sided stomach is present. Kidneys: Mild left-sided hydronephrosis. Normal is less than 5 mm in 2nd trimester, less than 7 mm in 3rd trimester. Cord: 3-vessel cord has orthotopic insertion. Bladder: Normal in size. Extremities: All 4 extremities identified. IMPRESSION: The left renal pelvis is slightly above the upper limits of normal in size for current age. Follow-up 3rd trimester renal ultrasound is recommended as a limited Ob follow-up examination. Appropriate interval growth, delivery date is projected to be centered on 03/11/21. Dictated by: Jama Flores M.D. on 10/24/2020 at 17:01 Approved by: Jama Flores M.D. on 10/24/2020 at 17:06
== END ==
PROVIDERS: PCP Family Medicine; Referring Provider Obstetrics & Gynecology; Visit Provider Obstetrics & Gynecology
DX: Z34.82 Encounter for supervision of other normal pregnancy, second trimester (principal); Z3A.20 20 weeks gestation of pregnancy
CPT/HCPCS: 76811

== ENCOUNTER → 2020-11-21 14:51 | Outpatient (CLI) | payer OTHER, MEDICAID, SELFPAY ==
[2020-11-21 16:52] LABS: Hematocrit 29.1 % (36-46); Hemoglobin 9.3 g/dL (12.0-16.0)
[2020-11-21 17:07] LABS: GTT (PREG) 1 Hour PP 50gm Dose 113 mg/dL (76-139)
== END ==
PROVIDERS: PCP Family Medicine; Referring Provider Obstetrics & Gynecology; Visit Provider Obstetrics & Gynecology
DX: Z34.82 Encounter for supervision of other normal pregnancy, second trimester (principal); Z3A.26 26 weeks gestation of pregnancy
CPT/HCPCS: 36415; 82950; 85014; 85018

== ENCOUNTER 2020-12-04 09:57 | Outpatient (CLI) | payer OTHER, MEDICAID, SELFPAY | END 2020-12-04 11:55 | disposition home or self-care (01) | LOC: LABOR 12:22 → OB 12-05 12:16 | PROVIDERS: PCP Family Medicine; Referring Provider Obstetrics & Gynecology; Visit Provider Obstetrics & Gynecology | DX: O26.892 Other specified pregnancy related conditions, second trimester (principal); R10.31 Right lower quadrant pain; Z3A.26 26 weeks gestation of pregnancy | CPT/HCPCS: 59025; G0378; G0379 ==

== ENCOUNTER 2020-12-22 17:37 | Emergency (ER) | payer OTHER, MEDICAID, SELFPAY ==
[2020-12-22 17:42] VITALS: BP 141/92; PULSE 96; RESP 20; TEMP 37; O2SAT 99
[2020-12-22] MEDS: SODIUM CHLORIDE 0.9% 1,000 ML 1000 ML IV (19:23)
[2020-12-22] MEDS: ONDANSETRON 4 MG/2 ML INJ IV (19:23)
[2020-12-22 19:28] LABS: Bacteria Urine None Seen
[2020-12-22 19:29] LABS: Amorphous Sediment Urine 3+; Culture Indicated Urine Cult Not Indicated; RBC Urine 1-5/HPF (0-5/HPF); Squamous Epithelial Cell Urine 5-10 /HPF (0-5/HPF); WBC Urine 5-10/HPF (0-5/HPF)
[2020-12-22 19:30] LABS: Add Manual Diff / Slide Review NO; Basophils Absolute Auto 100 /uL (0-100); Basophils Percent Auto 0.8 % (0-2); Eosinophils Absolute Auto 300 /uL (0-450); Eosinophils Percent Auto 2.1 % (2-4); Hematocrit 30.9 % (36-46); Hemoglobin 9.8 g/dL (12.0-16.0); Lymphocytes Absolute Auto 2500 /uL (1100-4500); Lymphocytes Percent Auto 17.2 % (25-40); Mean Corpuscular HGB Conc 31.6 % (30-36); Mean Corpuscular Hemoglobin 21.8 PG (26-34); Monocytes Absolute Auto 800 /uL (0-900); Monocytes Percent Auto 5.3 % (3-14); Neutrophils Absolute Auto 10600 /uL (1500-7000); Neutrophils Percent Auto 74.6 % (50-75); Platelet Count 164 X10^3/uL (150-400); Red Blood Cell Count 4.47 X10^6/uL (4.0-5.2); Red Cell Distribution Width 14.6 % (11.6-14.8); White Blood Cell Count 14.2 X10^3/uL (4.5-11.0)
[2020-12-22 19:42] LABS: Alanine Aminotransferase 29 IU/L (<35); Albumin 3.7 g/dL (3.5-5.0); Albumin Globulin Ratio 1.2 (1.0-2.8); Alkaline Phosphatase 62 U/L (38-126); Aspartate Aminotransferase 31 IU/L (14-36); BUN Creatinine Ratio 5.9 (6-22); Bilirubin Total 0.3 mg/dL (0.2-1.3); Blood Urea Nitrogen 3 mg/dL (7-17); Calcium 9.2 mg/dL (8.4-10.2); Carbon Dioxide 23 mmol/L (22-32); Chloride 107 mmol/L (98-107); Estimated Glomerular Filt Rate > 60.0 mL/min (>60); Globulin 3.2 g/dL (1.7-4.1); Glucose 84 mg/dL (70-100); HEMOLYSIS < 15 (0-50); Lipase 23 U/L (23-300); Potassium 2.9 mmol/L (3.4-5.1); Sodium 137 mmol/L (137-145); Total Protein 6.9 g/dL (6.3-8.2)
[2020-12-22 19:43] VITALS: BP 138/83; PULSE 88; O2SAT 100
[2020-12-22 20:00] VITALS: BP 133/85; PULSE 91; O2SAT 98
--- NOTE | 2020-12-22 20:11 | ED.NAVMDI ---
HPI - Nausea/Vomiting/Diarrhea General Chief complaint: Nausea/Vomiting/Diarrhea Stated complaint: 7 MONTHS , DEHYDRATION Time Seen by Provider: 12/22/20 19:04 Source: patient Mode of arrival: Ambulatory History of Present Illness HPI Narrative: Patient is a otherwise healthy 25-year-old female. She is 7 weeks . She is feeling her baby move. She is not having any cramping. No vaginal bleeding. Is here for evaluation of nausea and vomiting and feeling very dehydrated. Has been warm for the past couple days and she feels like that she has been drinking water but probably not as much as which she should have been taking. No diarrhea. Related Data Home Medications Medication Instructions Recorded Confirmed doxylamine succinate 25 mg tablet 25 mg PO BEDTIME PRN 08/12/20 12/11/20 (Unisom (doxylamine)) prenat.vits,paulo,yrm-syjw-hyvnp 1 tab PO DAILY 08/12/20 12/11/20 pyridoxine (vitamin B6) 25 mg 25 mg PO DAILY 08/12/20 12/11/20 tablet magnesium 200 mg tablet 200 mg PO DAILY 11/13/20 12/11/20 riboflavin (vitamin B2) 100 mg 200 mg PO cap 11/13/20 12/11/20 capsule,extended release Previous Rx's Medication Instructions Recorded hydrocodone 5 mg-acetaminophen 300 1 tab PO Q6H PRN #10 tab 09/11/20 mg tablet wlbklesfmv-qpjjsjmvtruwe-kdzqxaag 1 cap PO Q6H PRN #10 cap 09/16/20 50 mg-300 mg-40 mg capsule (Fioricet) ondansetron 4 mg disintegrating 4 mg PO Q8H PRN #30 tab 09/18/20 tablet sumatriptan succinate 50 mg tablet See Rx Instructions PO .COMPLEX 09/18/20 #30 tab ondansetron 4 mg disintegrating 4 mg PO Q6H PRN #20 tab 12/03/20 tablet Allergies Allergy/AdvReac Type Severity Reaction Status Date / Time banana Allergy Severe Swelling Verified 12/22/20 19:50 to throat - extreme venom-honey bee Allergy Severe Swelling Verified 12/22/20 19:50 and SOB diphenhydramine Allergy Intermediate Itchy Verified 12/22/20 19:50 [From Benadryl Allergy] feeling to throat : makes me freak out Review of Systems Constitutional Constitutional: Denies headache(s) ENT Ears, Nose, Mouth, and Throat: Denies headache(s) Cardiovascular Cardiovascular: Denies chest pain and Denies dyspnea Respiratory Respiratory: Denies dyspnea Gastrointestinal Comments: Nausea and vomiting, no diarrhea, is feeling her baby move Genitourinary Genitourinary: Denies dysuria Comments: Is feeling her baby move, no cramping, but no loss of fluid or blood. Musculoskeletal Musculoskeletal: Reports system reviewed and no additional complaints, except as documented Integumentary/Breasts Skin/Breast: Reports system reviewed and no additional complaints, except as documented Neurologic Neurologic: Denies headache(s) Psychiatric Psychiatric: Reports system reviewed and no additional complaints, except as documented Hematologic/Lymphatic On Anticoagulants: No Allergic/Immunologic Allergic/Immunologic: Reports system reviewed and no additional complaints, except as documented Patient History Medical History Acne (~2006) ADHD (~2011) Allergies (~2001) Anemia (~2002) Ankle fracture (~2004) Ankle pain (~2006) Anxiety (~1997) Aspergers' syndrome Asthma (~2005) Autism (~2015) Carpal tunnel syndrome (~2011) Chronic back pain (~2006) Depression (~2000) Disordered eating Eczema (~2004) Fatigue Finger fracture, left (~2007) Foot pain (~2006) Headache (~1998) Heavy menstrual period (~2004) History of being hospitalized (~2009) History of bipolar disorder (~2008) History of lumbar puncture (~2011) Hypertension (~2017) Joint pain (~2000) Kidney stones (~2013) Lupus (~2000) Marijuana use in remission (~05/2020) Migraine (~1998) Mixed anxiety depressive disorder Painful menstrual periods (~2006) Partial blindness (~2009) Pneumonia PTSD (post-traumatic stress disorder) (~2005) Seizure (~2020) Shoulder pain (~2007) Smoker Social anxiety disorder (~1997) Syncopal episodes (~2018) Vertigo (~2013) Surgical History Anesthesia H/O dilation and curettage (~2009) S/P tonsillectomy and adenoidectomy (~1999) Status post laser lithotripsy of ureteral calculus (~2013) Surgical procedure planned Family History Mother Respiratory abnormalities Asthma History of prediabetes Bipolar 1 disorder Diabetes mellitus History of heart disease Mental health problem Father Family estrangement PTSD (post-traumatic stress disorder) Hypertension Mental health problem Grandmother Respiratory abnormalities Grandfather Stroke Rib fracture History of prediabetes High blood sugar Heart palpitations Alcohol addiction Depression Hypertension Hyperlipidemia Grandmother Family estrangement Grandfather Family estrangement Brother Asthma Family/Other Bipolar 1 disorder Social History marital status: unmarried,living together number of children: 0 household members: significant other lives independently: Yes pets and animals: No education level: high school (Working on GED) occupational status: employed ([employer] ) current occupational exposures/hazards: Yes special med needs: No Smoking Status: Former smoker Tobacco: How many years used: 20 second hand exposure: No alcohol intake: former (pre- : rare ) substance use type: does not use and marijuana (Quit with diagnosis) Smoking Status: Former smoker tobacco type: cigarettes alcohol intake frequency: 0-2 drinks per day Substance Use Type: does not use Exam Initial Vital Signs Initial Vital Signs: Vital Signs Temperature 98.6 F 12/22/20 17:42 Pulse Rate 96 H 12/22/20 17:42 Respiratory Rate 20 12/22/20 17:42 Blood Pressure 141/92 H 12/22/20 17:42 Pulse Oximetry 99 12/22/20 17:42 Const General: cooperative and healthy appearing HENTN Head: normal to inspection and normocephalic Resp Effort & Inspection: normal respiratory effort Cardio Rate: regular rate Skin General: no rashes or lesions noted Neuro General: patient alert, patient awake and patient oriented x3 Extrem General: normal to inspection Psych Appearance: grossly normal and well kempt Course Orders Ordered: ED Orders 12/22/20 19:00 Urine Microscopic Stat 12/22/20 19:11 Complete Blood Count AUTO DIFF Stat Comprehensive Metabolic Panel Stat Lipase Stat Discontinued Medications Sodium Chloride (Normal Saline 0.9%) 1,000 mls @ 1,000 mls/hr IV BOLUS ONE Stop: 12/22/20 19:35 Last Infusion: 12/22/20 21:57 Dose: 0 mls/hr Documented by: Admin: 12/22/20 19:23 Dose: 1,000 mls/hr Documented by: RAMYA Ondansetron HCl (Ondansetron 4 Mg/2 Ml Inj) 4 mg IV NOW ONE Stop: 12/22/20 19:20 Last Admin: 12/22/20 19:23 Dose: 4 mg Documented by: RAMYA Potassium Chloride (Potassium Chloride 10 Meq Tab) 30 meq PO NOW ONE Stop: 12/22/20 20:57 Last Admin: 12/22/20 21:12 Dose: 30 meq Documented by: NOEMY Vital Signs Vital signs: Vital Signs - 8 hr 12/22/20 19:43 12/22/20 20:00 12/22/20 20:30 Pulse Rate 88 91 H 92 H Blood Pressure 138/83 133/85 137/92 H Pulse Oximetry 100 98 98 MDM - Nausea/Vomiting/Diarrhea Lab Data Result diagrams: 12/22/20 19:11 12/22/20 19:11 Labs: Lab Results 12/22/20 12/22/20 12/22/20 Range/Units 19:00 19:11 19:11 WBC 14.2 H (4.5-11.0) X10^3/uL RBC 4.47 (4.0-5.2) X10^6/uL Hgb 9.8 L (12.0-16.0) g/dL Hct 30.9 L (36-46) % MCV 69.0 L (80-100) fL MCH 21.8 L (26-34) PG MCHC 31.6 (30-36) % RDW 14.6 (11.6-14.8) % Plt Count 164 (150-400) X10^3/uL Neut % (Auto) 74.6 (50-75) % Lymph % (Auto) 17.2 L (25-40) % [place] % (Auto) 5.3 (3-14) % Eos % (Auto) 2.1 (2-4) % Baso % (Auto) 0.8 (0-2) % Neut # (Auto) 76742 H (8683-5239) /uL Lymph # (Auto) 2500 (2716-7594) /uL [place] # (Auto) 800 (0-900) /uL Eos # (Auto) 300 (0-450) /uL Baso # (Auto) 100 (0-100) /uL RBC Morphology Not Reportable Hypochromasia 3+ H Anisocytosis 1+ H Microcytosis 3+ H Sodium 137 (137-145) mmol/L Potassium 2.9 L (3.4-5.1) mmol/L Chloride 107 (98-107) mmol/L Carbon Dioxide 23 (22-32) mmol/L BUN 3 L (7-17) mg/dL Creatinine 0.51 L (0.52-1.04) mg/dL Estimated GFR > 60.0 (>60) mL/min BUN/Creatinine Ratio 5.9 L (6-22) Glucose 84 (70-100) mg/dL Calcium 9.2 (8.4-10.2) mg/dL Total Bilirubin 0.3 (0.2-1.3) mg/dL AST 31 (14-36) IU/L ALT 29 (<35) IU/L Alkaline Phosphatase 62 (38-126) U/L Total Protein 6.9 (6.3-8.2) g/dL Albumin 3.7 (3.5-5.0) g/dL Globulin 3.2 (1.7-4.1) g/dL Albumin/Globulin Ratio 1.2 (1.0-2.8) Lipase 23 (23-300) U/L Urine RBC 1-5/hpf (0-5/HPF) Urine WBC 5-10/hpf H (0-5/HPF) Ur Squamous Epith Cells 5-10 /hpf H (0-5/HPF) Amorphous Sediment 3+ Urine Bacteria None seen (None) Ur Culture Indicated? Cult not indicated Urine Dip Bedside Urine Glucose Negative Bedside Urine Bilirubin - Negative Bedside Urine Ketone +/- 5 Urine Specific [place] 1.025 Bedside Urine Occult Blood - Negative Bedside Urine pH 6 Bedside Urine Protein + 30 Bedside Urine Urobilinogen - Negative Bedside Urine Nitrite - Negative Bedside Urine Leukocytes - Negative Esterase MDM Narrative Medical decision making narrative: Patient is feeling her baby move. She is not having any urinary symptoms. No cramping. No loss of fluid. She was low on her potassium. After she was given Zofran had some crackers and some juice she did tolerate potassium by mouth. She felt much better after treatment here in the emergency department. Feel that we can hold on further workup for now. No indication for antibiotics. heart tones were obtained here in the emergency department and they were appropriate for baby's gestational age. Mother was given strict return precautions and follow-up instructions. She expressed understanding and agreement. Discharge Plan Departure Patient Disposition: Home Clinical Impression: Nausea and vomiting during Instructions: Nausea of (Alternative Therapy) Activity Restrictions/Additional Instructions: Recommend that you continue to drink small amounts of fluid over long periods of time. Use the nausea medication as needed. I do recommend that you go to the labor and delivery for nonstress test after discharge from the emergency department. Prescriptions: No Action ondansetron 4 mg tablet,disintegrating 4 mg PO Q6H PRN (Reason: nausea and vomiting) Qty: 20 RF: 1 prenat.vits,paulo,jyw-yjgl-wcwiv Tablet 1 tab PO DAILY RF: 0 Unisom (doxylamine) 25 mg tablet 25 mg PO BEDTIME PRNRF: 0 pyridoxine (vitamin B6) 25 mg tablet 25 mg PO DAILY RF: 0 riboflavin (vitamin B2) 100 mg capsule, extended release 200 mg PO RF: 0 magnesium 200 mg tablet 200 mg PO DAILY RF: 0 hydrocodone-acetaminophen 5-300 mg tablet 1 tab PO Q6H PRN (Reason: pain) Qty: 10 RF: 0 ondansetron 4 mg tablet,disintegrating 4 mg PO Q8H PRN (Reason: nausea and vomiting) Qty: 30 RF: 0 sumatriptan succinate 50 mg tablet See Rx Instructions PO .COMPLEX Qty: 30 RF: 0 zwspircigi-tmgkzwgzoyexj-mzpr [Fioricet] 50-300-40 mg capsule 1 cap PO Q6H PRN (Reason: pain) Qty: 10 RF: 0 Referrals: Bowen Medrano MD [Primary Care Provider] - Stand Alone Forms: Work Release Note
[2020-12-22 20:17] LABS: Anisocytosis 1+; Microcytosis 3+
[2020-12-22 20:18] LABS: Hypochromasia 3+
[2020-12-22 20:30] VITALS: BP 137/92; PULSE 92; O2SAT 98
[2020-12-22] MEDS: POTASSIUM CHLORIDE 10 MEQ TAB 30 MEQ PO (21:12)
== END 2020-12-22 22:04 | disposition home or self-care (01) ==
PROVIDERS: Emergency Provider Emergency Medicine; PCP Family Medicine
DX: O21.9 Vomiting of pregnancy, unspecified (principal); O99.213 Obesity complicating pregnancy, third trimester; O26.893 Other specified pregnancy related conditions, third trimester; E86.0 Dehydration; Z3A.28 28 weeks gestation of pregnancy
CPT/HCPCS: 36415; 59025; 80053; 81003; 81015; 82570; 83690; 84156; 85025; 96361; 96374; 99284; G0378; G0379; J2405

== ENCOUNTER 2020-12-22 22:05 | Observation (INO) | payer OTHER, MEDICAID, SELFPAY ==
[2020-12-22 23:08] LABS: Creatinine Urine Random 220.9 mg/dL; Protein (Total) Urine Random 26 mg/dL (0-12); Protein Creatinine Ratio Urine 0.11 GRAM/24H
== END 2020-12-22 23:18 | disposition home or self-care (01) ==
LOC: LABOR 22:07
PROVIDERS: Admitting Provider Obstetrics & Gynecology; PCP Family Medicine; Referring Provider Obstetrics & Gynecology; Visit Provider Obstetrics & Gynecology
DX: O21.9 Vomiting of pregnancy, unspecified (principal); O99.213 Obesity complicating pregnancy, third trimester; Z3A.28 28 weeks gestation of pregnancy
CPT/HCPCS: 59025; 82570; 84156; G0378; G0379

== ENCOUNTER 2021-01-15 13:27 | Observation (INO) | payer OTHER, MEDICAID, SELFPAY ==
[2021-01-15 14:47] LABS: Add Manual Diff / Slide Review NO; Basophils Absolute Auto 100 /uL (0-100); Basophils Percent Auto 0.6 % (0-2); Eosinophils Absolute Auto 200 /uL (0-450); Eosinophils Percent Auto 1.6 % (2-4); Hematocrit 29.2 % (36-46); Hemoglobin 9.5 g/dL (12.0-16.0); Lymphocytes Absolute Auto 2000 /uL (1100-4500); Lymphocytes Percent Auto 16.5 % (25-40); Mean Corpuscular HGB Conc 32.5 % (30-36); Mean Corpuscular Volume 67.8 fL (80-100); Monocytes Absolute Auto 700 /uL (0-900); Monocytes Percent Auto 5.9 % (3-14); Neutrophils Absolute Auto 8900 /uL (1500-7000); Neutrophils Percent Auto 75.4 % (50-75); Platelet Count 149 X10^3/uL (150-400); Red Cell Distribution Width 13.8 % (11.6-14.8); White Blood Cell Count 11.8 X10^3/uL (4.5-11.0)
[2021-01-15 14:57] LABS: Aspartate Aminotransferase 20 IU/L (14-36); BUN Creatinine Ratio 5.9 (6-22); Blood Urea Nitrogen 3 mg/dL (7-17); Estimated Glomerular Filt Rate > 60.0 mL/min (>60); Uric Acid 5.2 mg/dL (2.5-6.2)
[2021-01-15 15:01] LABS: Hypochromasia 1+; Microcytosis 1+
== END 2021-01-15 15:30 | disposition home or self-care (01) ==
PROVIDERS: Admitting Provider Obstetrics & Gynecology; PCP Family Medicine; Referring Provider Obstetrics & Gynecology; Visit Provider Obstetrics & Gynecology
DX: O13.3 Gestational [pregnancy-induced] hypertension without significant proteinuria, third trimester (principal); O99.213 Obesity complicating pregnancy, third trimester; Z3A.32 32 weeks gestation of pregnancy
CPT/HCPCS: 36415; 59025; 59050; 84450; 84550; 85025; G0378; G0379

== ENCOUNTER 2021-01-22 13:48 | Observation (INO) | payer OTHER, MEDICAID, SELFPAY ==
[2021-01-22 14:38] VITALS: BP 132/84; PULSE 90
[2021-01-22] MEDS: LABETALOL 100 MG TABLET PO (14:38)
== END 2021-01-22 15:09 | disposition home or self-care (01) ==
PROVIDERS: Admitting Provider Obstetrics & Gynecology; PCP Family Medicine; Referring Provider Obstetrics & Gynecology; Visit Provider Obstetrics & Gynecology
DX: O13.3 Gestational [pregnancy-induced] hypertension without significant proteinuria, third trimester (principal); O99.213 Obesity complicating pregnancy, third trimester; Z3A.35 35 weeks gestation of pregnancy
CPT/HCPCS: 59025; G0378; G0379

== ENCOUNTER 2021-01-31 14:52 | Observation (INO) | payer OTHER, MEDICAID, SELFPAY | END 2021-01-31 17:00 | disposition home or self-care (01) | LOC: LABOR 14:54 | PROVIDERS: Admitting Provider Family Medicine; PCP Family Medicine; Referring Provider Family Medicine; Visit Provider Family Medicine | DX: O99.213 Obesity complicating pregnancy, third trimester (principal); Z3A.34 34 weeks gestation of pregnancy | CPT/HCPCS: 59025; G0378; G0379 ==

== ENCOUNTER → 2021-02-06 08:20 | Outpatient (CLI) | payer OTHER, MEDICAID, SELFPAY ==
[2021-02-07 09:36] LABS: Strep Grp B PCR POS for Grp B Strep
== END ==
PROVIDERS: PCP Family Medicine; Visit Provider Obstetrics & Gynecology
DX: Z34.83 Encounter for supervision of other normal pregnancy, third trimester (principal); Z3A.35 35 weeks gestation of pregnancy
CPT/HCPCS: 87653

== ENCOUNTER 2021-02-06 08:52 | Observation (INO) | payer OTHER, MEDICAID, SELFPAY ==
[2021-02-06 09:48] LABS: Add Manual Diff / Slide Review NO; Basophils Absolute Auto 100 /uL (0-100); Basophils Percent Auto 0.5 % (0-2); Eosinophils Absolute Auto 500 /uL (0-450); Eosinophils Percent Auto 4.1 % (2-4); Hematocrit 28.4 % (36-46); Hemoglobin 9.2 g/dL (12.0-16.0); Lymphocytes Absolute Auto 1900 /uL (1100-4500); Lymphocytes Percent Auto 16.9 % (25-40); Mean Corpuscular HGB Conc 32.5 % (30-36); Mean Corpuscular Hemoglobin 22.1 PG (26-34); Mean Corpuscular Volume 68.1 fL (80-100); Monocytes Absolute Auto 600 /uL (0-900); Monocytes Percent Auto 5.3 % (3-14); Neutrophils Absolute Auto 8000 /uL (1500-7000); Neutrophils Percent Auto 73.2 % (50-75); Platelet Count 158 X10^3/uL (150-400); Red Blood Cell Count 4.17 X10^6/uL (4.0-5.2); Red Cell Distribution Width 14.8 % (11.6-14.8)
[2021-02-06] MEDS: LABETALOL 100 MG TABLET PO (10:16)
[2021-02-06 10:49] LABS: Creatinine Urine Random 92.3 mg/dL; Protein (Total) Urine Random 29 mg/dL (0-12); Protein Creatinine Ratio Urine 0.31 GRAM/24H
[2021-02-06 11:13] LABS: Polychromasia 1+
[2021-02-06 11:14] LABS: Microcytosis 1+; Poikilocytosis 1+
[2021-02-06 11:21] LABS: Aspartate Aminotransferase 20 IU/L (14-36); BUN Creatinine Ratio 7.4 (6-22); Blood Urea Nitrogen 4 mg/dL (7-17); Estimated Glomerular Filt Rate > 60.0 mL/min (>60); Uric Acid 5.3 mg/dL (2.5-6.2)
== END 2021-02-06 11:37 | disposition home or self-care (01) ==
PROVIDERS: Admitting Provider Obstetrics & Gynecology; PCP Family Medicine; Referring Provider Obstetrics & Gynecology; Visit Provider Obstetrics & Gynecology
DX: O13.3 Gestational [pregnancy-induced] hypertension without significant proteinuria, third trimester (principal); Z3A.35 35 weeks gestation of pregnancy
CPT/HCPCS: 36415; 59025; 59050; 82570; 84156; 84450; 84550; 85025; 87653; G0378; G0379

== ENCOUNTER 2021-02-12 16:45 | Inpatient (IN) | payer OTHER, MEDICAID, SELFPAY ==
--- NOTE | 2021-02-12 16:56 | DI.US.S_ITS ---
PROCEDURE: US OB BIOPHYSICAL PROFILE INDICATIONS: LOW FLUID IN OFFICE, PIH OUTSIDE/PRIOR DATING DATA: Last menstrual period (LMP): 06/04/2020 . LMP-based estimated date of delivery (JOSHUA): 03/11/2021 . First dating scan (date and location): 08/14/2020 . Estimated date of delivery (JOSHUA) from first dating scan: 03/11/2021 . TECHNIQUE: Real-time scanning was performed of the fetus, with image documentation and biometric measurements. Biophysical profile was also obtained. Endovaginal scanning: None COMPARISON: [facility], , OB >= 14 WEEKS FETUS, 02/06/2021, 8:41. [facility], , US OB >= 14 WEEKS FETUS, 02/12/2021, 16:38. FINDINGS: General: A single living intrauterine gestation is present. Presentation: Cephalic. Placenta: Placental position is anterior , without previa. Amniotic fluid index: 5 cm, normal range is 5-24 cm. heart rate: 137 beats per minute. Maternal cervical canal: Not visualized Estimated gestational age from initial scan: 36 week 1 day Biophysical profile: 8 out of 8 Tone: 2 points. Movement: 2 points. Respiration: 2 points. Largest pocket of fluid: 2 points. IMPRESSION: 1. Single live intrauterine consistent with 36 week 1 day gestation 2. Amniotic fluid index is 5 cm, lower limits of normal 3. Biophysical profile 8 out of 8 Approved by: Nabor Rehman M.D. on 02/12/2021 at 17:18
[2021-02-12 18:15] LABS: Aspartate Aminotransferase 25 IU/L (14-36); BUN Creatinine Ratio 6.3 (6-22); Blood Urea Nitrogen 4 mg/dL (7-17); Estimated Glomerular Filt Rate > 60.0 mL/min (>60); Uric Acid 4.9 mg/dL (2.5-6.2)
[2021-02-12 18:24] LABS: Add Manual Diff / Slide Review NO; Basophils Absolute Auto 100 /uL (0-100); Basophils Percent Auto 0.7 % (0-2); Eosinophils Absolute Auto 400 /uL (0-450); Eosinophils Percent Auto 3.3 % (2-4); Hematocrit 29.6 % (36-46); Hemoglobin 9.6 g/dL (12.0-16.0); Lymphocytes Absolute Auto 2300 /uL (1100-4500); Lymphocytes Percent Auto 17.4 % (25-40); Mean Corpuscular HGB Conc 32.3 % (30-36); Mean Corpuscular Hemoglobin 21.8 PG (26-34); Mean Corpuscular Volume 67.6 fL (80-100); Monocytes Absolute Auto 900 /uL (0-900); Neutrophils Absolute Auto 9500 /uL (1500-7000); Neutrophils Percent Auto 71.6 % (50-75); Platelet Count 169 X10^3/uL (150-400); Red Blood Cell Count 4.38 X10^6/uL (4.0-5.2); White Blood Cell Count 13.3 X10^3/uL (4.5-11.0)
[2021-02-12 18:29] LABS: Protein (Total) Urine Random 12 mg/dL (0-12); Protein Creatinine Ratio Urine 0.38 GRAM/24H
[2021-02-12 18:48] LABS: Anisocytosis 2+; Hypochromasia 2+
[2021-02-12 18:49] LABS: Burr Cells 1+; Target Cells 1+
[2021-02-12] MEDS: BETAMETHASONE 30 MG/5 ML MDV 12 MG IM (20:40)
[2021-02-12] MEDS: LABETALOL 100 MG TABLET 200 MG PO (20:41)
[2021-02-13] MEDS: LABETALOL 100 MG TABLET 200 MG PO ×3 (09:12→20:13)
--- NOTE | 2021-02-13 17:51 | P.HPOB_ITS ---
OB HPI Date/Time Date of admission: 02/13/21 Date Patient Seen: 02/13/21 Time Patient Seen: 06:30 History of Present Condition Chief complaint: NST-blood pressure test : 2 Para: 0 Estimated Date of Delivery: 03/11/21 Estimated Gestational Age (weeks): 36+2 Narrative: Libia Dennis is a 25 year old female 2 para 0 at 36-,2/7 weeks gestation for cervical ripening and induction of labor due to gestational hypertension with oligohydramnios. Indications Indication for induction OB: gestational HTN/pre-eclampsia and oligohydramnios History of Present care: good care, initiated at week # (10), number of visits (12) and pounds weight gain (35) Dating criteria: LMP confirmed by 1st trimester US Ultrasounds: normal 1st trimester US and normal mid trimester US Obstetrical complications: gestational hypertension and other (Oligohydramnios) Medical complications: none Preadmission Labs Blood type: O (+) positive -: Antibody screen: negative, GBS status: positive, HBsAG: negative and RPR/VDLR: negative -: Chlamydia screen: not detected and Gonorrhea screen: not detected -: Rubella: immune and Varicella: immune HCT: 29.6 HCAB: negative PAP: Normal Quad screen: Normal Urine: Negative 1 hr GTT: 113 Prior (ies) History: 1 SAB Evaluation Evaluation Baseline heart rate: 140 Variability: Moderate (11-25) monitor accelerations: Present Monitor Decelerations: Absent Status: Category l Cervical dilation (cm): 0 Cervical effacement (%): 80 station: -1 [facility] Medical History Acne (~2006) ADHD (~2011) Allergies (~2001) Anemia (~2002) Ankle fracture (~2004) Ankle pain (~2006) Anxiety (~1997) Aspergers' syndrome Asthma (~2005) Autism (~2015) Carpal tunnel syndrome (~2011) Chronic back pain (~2006) Depression (~2000) Disordered eating Eczema (~2004) Fatigue Finger fracture, left (~2007) Foot pain (~2006) Headache (~1998) Heavy menstrual period (~2004) History of being hospitalized (~2009) History of bipolar disorder (~2008) History of lumbar puncture (~2011) Hypertension (~2017) Joint pain (~2000) Kidney stones (~2013) Lupus (~2000) Marijuana use in remission (~05/2020) Migraine (~1998) Mixed anxiety depressive disorder Painful menstrual periods (~2006) Partial blindness (~2009) Pneumonia PTSD (post-traumatic stress disorder) (~2005) Seizure (~2020) Shoulder pain (~2007) Smoker Social anxiety disorder (~1997) Syncopal episodes (~2018) Vertigo (~2013) Surgical History Anesthesia H/O dilation and curettage (~2009) S/P tonsillectomy and adenoidectomy (~1999) Status post laser lithotripsy of ureteral calculus (~2013) Surgical procedure planned Family History Mother Respiratory abnormalities Asthma History of prediabetes Bipolar 1 disorder Diabetes mellitus History of heart disease Mental health problem Father Family estrangement PTSD (post-traumatic stress disorder) Hypertension Mental health problem Grandmother Respiratory abnormalities Grandfather Stroke Rib fracture History of prediabetes High blood sugar Heart palpitations Alcohol addiction Depression Hypertension Hyperlipidemia Grandmother Family estrangement Grandfather Family estrangement Brother Asthma Family/Other Bipolar 1 disorder Social History marital status: unmarried,living together number of children: 0 household members: significant other lives independently: Yes pets and animals: No education level: high school (Working on GED) 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 ) current occupational exposures/hazards: Yes special med needs: No Smoking Status: Former smoker Tobacco: How many years used: 20 second hand exposure: No alcohol intake: former (pre- : rare ) substance use type: does not use and marijuana (Quit with diagnosis) Meds Home Medications and Allergies Home Medications Medication Instructions Recorded Confirmed Type doxylamine succinate 25 mg tablet 25 mg PO BEDTIME PRN 08/12/20 02/12/21 History (Unisom (doxylamine)) prenat.vits,paulo,tyb-ylnj-geyly 1 tab PO DAILY 08/12/20 02/12/21 History pyridoxine (vitamin B6) 25 mg 25 mg PO DAILY 08/12/20 02/12/21 History tablet hydrocodone 5 mg-acetaminophen 300 1 tab PO Q6H PRN #10 tab 09/11/20 02/12/21 Rx mg tablet zlvtvmmqky-ppssjfhvglxus-ocfjgsxu 1 cap PO Q6H PRN #10 cap 09/16/20 02/12/21 Rx 50 mg-300 mg-40 mg capsule (Fioricet) ondansetron 4 mg disintegrating 4 mg PO Q8H PRN #30 tab 09/18/20 02/12/21 Rx tablet sumatriptan succinate 50 mg tablet See Rx Instructions PO .COMPLEX 09/18/20 02/12/21 Rx #30 tab magnesium 200 mg tablet 200 mg PO DAILY 11/13/20 02/12/21 History riboflavin (vitamin B2) 100 mg 200 mg PO cap 11/13/20 02/12/21 History capsule,extended release ondansetron 4 mg disintegrating 4 mg PO Q6H PRN #20 tab 01/02/21 02/12/21 Rx tablet labetalol 200 mg tablet 200 mg PO BID #60 tab 01/22/21 02/12/21 Rx Allergies Allergy/AdvReac Type Severity Reaction Status Date / Time banana Allergy Severe Swelling Verified 02/12/21 16:22 to throat - extreme venom-honey bee Allergy Severe Swelling Verified 02/12/21 16:22 and SOB diphenhydramine Allergy Intermediate Itchy Verified 02/12/21 16:22 [From Benadryl Allergy] feeling to throat : makes me freak out Exam Narrative Exam Narrative: Generally: Patient is sitting up in bed, no acute distress Lungs: Clear to auscultation bilaterally Cardiovascular: Regular rate and Fundal height: 37 cm Estimated weight: 6-1/2 lb Extremities: 1+ edema, 1+ DTR, negative clonus Objective Labs Result Diagrams: 02/12/21 17:57 02/12/21 17:57 Labs: Laboratory Results - last 24 hr 02/12/21 02/12/21 02/12/21 17:57 17:57 17:57 WBC 13.3 H RBC 4.38 Hgb 9.6 L Hct 29.6 L MCV 67.6 L MCH 21.8 L MCHC 32.3 RDW 15.0 H Plt Count 169 Neut % (Auto) 71.6 Lymph % (Auto) 17.4 L [place] % (Auto) 7.0 Eos % (Auto) 3.3 Baso % (Auto) 0.7 Neut # (Auto) 9500 H Lymph # (Auto) 2300 [place] # (Auto) 900 Eos # (Auto) 400 Baso # (Auto) 100 RBC Morphology See below Hypochromasia 2+ H Anisocytosis 2+ H Target Cells 1+ H [place] Cells 1+ H BUN 4 L Creatinine 0.64 Estimated GFR > 60.0 BUN/Creatinine Ratio 6.3 Uric Acid 4.9 AST 25 U Random Total Protein 12 Urine Creatinine 31.0 Protein/Creatinin Ratio 0.38 Assessment and Plan Assessment and Plan Assessment and Plan narrative: Assessment: 25-year-old 2 para 0 at 36-,2/7 weeks gestation with gestational hypertension and oligohydramnios for cervical ripening and induction of labor. GBS positive Plan: Cervidil placed Group B strep prophylaxis once active Expected management to spontaneous vaginal delivery Pediatrics notified Time Spent with Patient Total time spent with greater than 50% in coordination of care (as documented) at patient's floor/unit and/or counseling patient:: 15-24 minutes
[2021-02-13] MEDS: DINOPROSTONE VAG (CERVIDIL) 10 MG VAG (18:00)
[2021-02-13] MEDS: HYDRALAZINE 20 MG/ML VIAL 5 MG IV ×2 (18:07→19:07)
[2021-02-13 18:09] LABS: Add Manual Diff / Slide Review NO; Basophils Absolute Auto 100 /uL (0-100); Basophils Percent Auto 0.5 % (0-2); Eosinophils Absolute Auto 0 /uL (0-450); Hematocrit 30.7 % (36-46); Hemoglobin 9.7 g/dL (12.0-16.0); Lymphocytes Absolute Auto 2000 /uL (1100-4500); Lymphocytes Percent Auto 10.5 % (25-40); Mean Corpuscular HGB Conc 31.7 % (30-36); Mean Corpuscular Hemoglobin 21.6 PG (26-34); Monocytes Absolute Auto 1200 /uL (0-900); Monocytes Percent Auto 6.5 % (3-14); Neutrophils Absolute Auto 15400 /uL (1500-7000); Neutrophils Percent Auto 82.5 % (50-75); Platelet Count 199 X10^3/uL (150-400); Red Blood Cell Count 4.51 X10^6/uL (4.0-5.2); Red Cell Distribution Width 15.2 % (11.6-14.8); White Blood Cell Count 18.7 X10^3/uL (4.5-11.0)
[2021-02-13 19:07] LABS: COVID19 - ADMIT (NP swab/PCR) Negative (Negative)
[2021-02-13 19:46] VITALS: BP 136/89
[2021-02-13 20:07] VITALS: BP 136/72; PULSE 93
[2021-02-13 20:08] VITALS: BP 136/72; PULSE 93
[2021-02-13 20:13] VITALS: BP 136/72; PULSE 93
[2021-02-13] MEDS: BETAMETHASONE 30 MG/5 ML MDV 12 MG IM (20:13)
[2021-02-13 22:18] VITALS: BP 136/72; PULSE 93
[2021-02-13] MEDS: ACETAMINOPHEN 325 MG TABLET 975 MG PO (22:37)
[2021-02-14] MEDS: PENICILLIN G POTASSIUM 5,000,000 UNIT in DEXTROSE 5% IN WATER 250 ML IV (08:27)
[2021-02-14] MEDS: LABETALOL 100 MG TABLET 200 MG PO ×3 (08:28→20:33)
[2021-02-14] MEDS: OXYTOCIN PREMIX 30 UNIT/500 ML PLAST..BAG IV (09:50)
[2021-02-14] MEDS: PENICILLIN G POTASSIUM 3,000,000 UNIT/50 ML FROZ.PIGGY 100 UNIT IV ×3 (12:30→20:30)
--- NOTE | 2021-02-14 14:21 | PM.AN.REGBLK ---
Regional [facility] Pre-procedure Procedure: Continuous Lumbar Epidural for L&D Attending OB provider: Carole Gore PMH/ROS narrative: Gestational HTN and olighydraminos for induction of labor. H/o seizures, migraines (helped with previous dural puncture and CSF drainage per patient), asthma, asberger's, ADHD, PTSD, MDD, GIORGIO, bipolar. Hx: No personal or family history of anesthesia problems. PSH/Anesthesia history narrative: No previous epidurals. 2 previous spinal taps without issue. Exam narrative: MP3, RRR, CTAB ASA Class: III Labs: Hct 30.7 % (36-46) L 02/13/21 17:40 Plt Count 199 X10^3/uL (150-400) 02/13/21 17:40 Medications: Current Medications Generic Name Dose Route Start Last Admin Trade Name Freq PRN Reason Stop Dose Admin Acetaminophen 975 mg 02/13/21 22:16 02/13/21 22:37 Acetaminophen 325 Mg Tablet PO 975 mg Q8H PRN Administration Pain, Mild (1-3) Calcium Carbonate 1,000 mg 02/13/21 06:01 Calcium Carbonate 500 Mg Tab PO Q2HR PRN Dyspepsia Carboprost Tromethamine 250 mcg 02/13/21 06:01 Carboprost 250 Mcg/Ml Ampul IM Q90M PRN Bleeding Fentanyl 50 mcg 02/13/21 06:01 Fentanyl 100 Mcg/2 Ml Inj IV Q1H PRN Pain, Moderate (4-6) Hydralazine HCl 5 mg 02/13/21 18:50 02/13/21 19:07 Hydralazine 20 Mg/Ml Vial IV 5 mg NOW PRN Administration Increased Blood Pressure Lactated Ringer's 1,000 mls @ 100 mls/hr 02/13/21 06:15 Lactated Ringers IV CONT NEY Oxytocin/Lactated Ringer's 30 unit in 500 mls @ 200 mls/hr 02/13/21 06:01 Oxytocin Premix IV CONT PRN Bleeding Protocol Tranexamic Acid 1,000 mg/ 100 mls @ 200 mls/hr 02/13/21 06:01 Sodium Chloride IV NOW PRN Bleeding Penicillin G Potassium 3,000,000 unit in 50 mls @ 100 mls/hr 02/14/21 10:45 02/14/21 12:30 Penicillin G Potassium IV 100 mls/hr Q4H NEY Administration Oxytocin/Lactated Ringer's 30 unit in 500 mls @ 1 mls/hr 02/14/21 06:15 02/14/21 09:50 Oxytocin Premix IV 1 milliunit/min TITRATE NEY 1 mls/hr Administration Protocol 1 MILLIUNIT/MIN Labetalol HCl 200 mg 02/13/21 09:00 02/14/21 08:28 Labetalol 100 Mg Tablet PO 200 mg TID NEY Administration Methylergonovine Maleate 0.2 mg 02/13/21 06:01 Methylergonovine 0.2 Mg Tablet PO Q6HR PRN Heavy Bleeding Methylergonovine Maleate 0.2 mg 02/13/21 06:01 Methylergonovine 0.2 Mg/Ml Vial IM NOW PRN Bleeding Metoclopramide HCl 10 mg 02/13/21 06:01 Metoclopramide 10 Mg/2 Ml Inj IV NOW PRN Nausea And Vomiting Misoprostol 800 mcg 02/13/21 06:01 Misoprostol 200 Mcg Tablet IN NOW PRN Bleeding Misoprostol 1,000 mcg 02/13/21 06:01 Misoprostol 200 Mcg Tablet IN NOW PRN Bleeding Misoprostol 400 mcg 02/13/21 06:01 Misoprostol 200 Mcg Tablet SL NOW PRN Bleeding Naloxone HCl 0.2 mg 02/13/21 06:01 Naloxone 0.4 Mg/Ml Vial IV Q2MIN PRN Opiate Reversal Ondansetron HCl 4 mg 02/13/21 06:01 Ondansetron 4 Mg/2 Ml Inj IV Q4HR PRN Nausea And Vomiting Oxytocin 10 unit 02/13/21 06:01 Oxytocin 10 Unit/Ml Vial IM NOW PRN Bleeding Allergies: Allergies Allergy/AdvReac Type Severity Reaction Status Date / Time banana Allergy Severe Swelling Verified 02/12/21 16:22 to throat - extreme venom-honey bee Allergy Severe Swelling Verified 02/12/21 16:22 and SOB diphenhydramine Allergy Intermediate Itchy Verified 02/12/21 16:22 [From Benadryl Allergy] feeling to throat : makes me freak out Procedure Insertion date: 02/14/21 Insertion time: 14:08 Prep/Local: betadine x3 (chloroprep) and 1% lidocaine Interspace: L3-4 Patient position: sitting Needle: 18 gauge Mandi Loss of resistance with: saline TAINA at (cm): 8 Catheter placed at SKIN (cm): 13 Catheter in SPACE (cm): 5 Insertion: Yes CSF Initial Medications TEST DOSE time: 14:09 TEST DOSE: 1.5% lidocaine with epinephrine 1:200k (mL): 5 BOLUS DOSE time: 14:10 BOLUS DOSE (mL): 2 BOLUS DOSE med: other (10mcg fentanyl intrathecally, 90mcg fentanyl via epidural catheter) Infusion INFUSION: 0.0625% bupivacaine and with fentanyl 2 mcg/mL Initial rate (mL/hr): 12 Subsequent interventions: 1420 - patient with increased pressure/pain bilaterally, low abdomen to back. Has been using patient boluses but is now breathing through contractions. Previously doing well. Bolus of 5mL bupivicaine 0.25% with 100mcg fentanyl given. Last check, no change in dilation. Likely going for in two hours per OB. 1430 - pain improved to 7 from 9.5. Second bolus 5mL bupivicaine 0.25% given. Options for discussed. Post-procedure Anesthesia time START: 13:52 Anesthesia time END: 16:09 (to )
[2021-02-14 16:44] VITALS: BP 154/89; PULSE 86
[2021-02-14] MEDS: LACTATED RINGERS 1,000 ML 100 ML IV (18:32)
--- NOTE | 2021-02-14 18:42 | PM.OBPNLAB ---
Date/Time Date Patient Seen: 02/14/21 Time Patient Seen: 18:42 Pain Control Pain control: epidural Pelvic Exam Dilation (cm): 1 Effacement (%): 75 station: -1 Amniotic membrane status: Intact Contractions Contractions on admission: none Monitor mode: External Pitocin rate (mU/min): 18 Contraction pattern: Regular Contraction intensity: Moderate Status status: Category l Heart Rate Baseline: 135 Monitor Accelerations: Present Monitor Decelerations: Absent Monitor Variability: Moderate Assessment and Plan Assessment: induction ongoing Plan: other Comments: Will continue Pitocin until 8:00 p.m. Cervidil overnight Patient may eat if okay with Anesthesia Restart Pitocin in the morning
[2021-02-14 20:33] VITALS: BP 148/80; PULSE 77
[2021-02-14] MEDS: DINOPROSTONE VAG (CERVIDIL) 10 MG VAG (20:43)
[2021-02-15] VITALS (7 sets, daily range): BP systolic 114–150; BP diastolic 73–88; PULSE 69–83; RESP 10–17; TEMP 36.2; O2SAT 100
[2021-02-15] MEDS: PENICILLIN G POTASSIUM 3,000,000 UNIT/50 ML FROZ.PIGGY 100 UNIT IV ×3 (00:40→11:28)
[2021-02-15] MEDS: FENT 2MCG/ML BUPIV 0.125% EPI 200 MCG/100 ML PLAST..BAG 12 MCG EPIDURAL ×2 (04:40→11:28)
[2021-02-15] MEDS: LABETALOL 100 MG TABLET 200 MG PO ×3 (08:58→20:42)
[2021-02-15] MEDS: OXYTOCIN PREMIX 30 UNIT/500 ML PLAST..BAG IV (09:33)
--- NOTE | 2021-02-15 10:07 | PM.OBPNLAB ---
Date/Time Date Patient Seen: 02/15/21 Time Patient Seen: 10:07 Pain Control Pain control: epidural Pelvic Exam Dilation (cm): 1 Effacement (%): 75 Contractions Contractions on admission: none Monitor mode: External Pitocin rate (mU/min): 3 Contraction frequency (min): 4 Contraction duration (min): 1 Contraction pattern: Regular Contraction intensity: Moderate Status status: Category l Heart Rate Baseline: 135 Monitor Accelerations: Present Monitor Decelerations: Absent Monitor Variability: Moderate Assessment and Plan Assessment: induction ongoing Plan: continuous present management (If no significant progress into active labor by early evening will do )
--- NOTE | 2021-02-15 16:08 | P.PNOB_ITS ---
Date/Time Date Patient Seen: 02/15/21 Time Patient Seen: 16:08 Pain Control Pain control: epidural Pelvic Exam Dilation (cm): 1 Effacement (%): 75 station: -1 Amniotic membrane status: Intact Contractions Monitor mode: External Pitocin rate (mU/min): 13 Contraction frequency (min): 3 Contraction pattern: Regular Contraction intensity: Strong/Firm Status status: Category l Heart Rate Baseline: 135 Monitor Accelerations: Present Monitor Decelerations: Absent Monitor Variability: Moderate Assessment and Plan Assessment: induction ongoing Plan: Comments: Discussed with patient and her that there has been no change in 2 days and her cervix is conical on palpation. Patient very much in agreemen t to proceed with a . The risks, benefits, and alternatives to the procedure were explained to the patient. The risks including bleeding, infection, injury to the bowel, bladder, or ureters. She understands these risks and agrees to proceed. A full par Q was held and consent form was signed.
--- NOTE | 2021-02-15 16:09 | PM.PREOP ---
Pre-operative Note COVID-19 COVID-19 status: Negative Result date/Date tested (Pos, Neg/Pending): 02/05/21 Interval Note History & Physical reviewed/Exam performed by Physician: Yes Changes to H&P: No H&P completed within 30 days and has changed as indicated here:: 02/06/21
--- NOTE | 2021-02-15 16:50 | SUR.OPER ---
Supine on Padded OR bed, head on pillow, safety belt at thigh, arms secured on padded arm boards at <90 degrees abduction. Bump under right buttock. Legs uncrossed with pillow under knees, gel pad to heels, tape over blanket to lower legs.
[2021-02-15] MEDS: CEFAZOLIN 1 GM VIAL 2 GM IV (16:57)
--- NOTE | 2021-02-15 16:58 | SUR.OPER ---
FHT's 142. Live female born @ 1655. Cord blood x 2 and placenta to OB with OB RN
--- NOTE | 2021-02-15 17:45 | P.OP_ITS ---
Operative Date/Time/Diagnoses Date of procedure: 02/15/21 Time of procedure: 17:45 Pre-op diagnosis: Intrauterine at 36-,5/7 weeks gestation Oligohydramnios Failed induction Gestational hypertension Post-op diagnosis: same Procedure & Clinicians Procedure: Primary low-transverse section Same procedure as scheduled: Yes Indications: 36-,5/7 weeks gestation Gestational hypertension Oligohydramnios Failed induction Surgeon: Carole Covington Yes if Unassisted: No Shipping Clerk: Maddie Mendoza Reason for Shipping Clerk: Retraction, cutting suture, assist with delivery of the baby, closure of contralateral fascia Anesthesia Type: Spinal (With Duramorph) Operative Notes Findings: Live female infant in the MAC presentation No development of the lower uterine segment Normal tubes and ovaries Small, Grade 3 placenta Closure Type: primary Specimen(s): cord blood and placenta Intraoperative meds administered: Duramorph and Ketorolac Applied: Catheter (To continuous drainage) Estimated Blood Loss (mL): 750 Blood products transfused: none Procedure in detail: The patient was taken to the operating room where she was placed in the dorsal supine position with a leftward tilt. She was prepped and draped in the usual sterile fashion. A timeout was performed. After epidural analgesia was found to be adequate, a Pfannenstiel skin incision was made 2 fingerbreadths above the pubic symphysis and carried through to the underlying layer fascia. The fascia was nicked in the midline, and the incision extended bilaterally with the Curry scissors. The superior aspect of the fascial incision was grasped with a Sinclair clamps, elevated, and the underlying rectus muscles dissected off sharply and bluntly. Attention was then turned to the inferior aspect of this incision which in a similar fashion was grasped with a Sinclair clamps, elevated, and the underlying rectus muscles dissected off sharply and bluntly. The rectus muscles were in the midline. The peritoneum was identified, grasped between 2 hemostats, and entered sharply with the Metzenbaum scissors. This incision was extended superiorly and inferiorly with good visualization of the bladder. The bladder blade was inserted. There was found to be no development of the lower uterine segment. The vesicouterine peritoneum was identified, grasped with the pickup, and entered sharply with the Metzenbaum scissors. This incision was extended bilaterally, and the bladder flap was created digitally. The bladder blade was reinserted. The lower uterine segment was incised in a transverse fashion with the scalpel. Upon entering the amniotic sac there was a small amount of clear amniotic fluid. The infant's head was delivered without difficulty. The nose and mouth were suctioned with bulb suction. The remainder of the body delivered without difficulty. The cord was double clamped and cut. The was handed off to waiting RN and RT. The placenta was delivered manually. The uterus was cleared of all clots and debris. The uterine incision was repaired with #1 chromic in a running interlocking fashion, and a second layer the same suture was used for an imbricating layer. Hemostasis was achieved. The tubes and ovaries were examined and were found to be normal. The gutters were cleared of all clots and debris. The bladder flap was reapproximated using 2-0 Vicryl in a running fashion. The parietal peritoneum was closed using 2-0 Vicryl in a running fashion. The fascia was reapproximated using 0 Vicryl in a running fashion. The subcutaneous layer was copiously irrigated with warm normal saline. 5 simple interrupted sutures of 3-0 Vicryl were placed to reapproximate the subcutaneous layer. The skin was closed with 4-0 Biosyn in a subcuticular fashion. Steri-Strips were placed. An Aquacel dressing was placed. The uterus was expressed of a small amount of old blood. Sponge, lap, and instrument co unts were correct x-2. The patient tolerated the procedure well, and was taken to PACU in stable condition. Complications: none [place] Baby 1: Gender: Female Presentation: vertex Position: Left Occiput Anterior Placental Delivery Description: Manual Removal Cord Vessel Description: 3 Vessels score (1 min): 6 score (5 min): 9 weight: 5 lb 10 oz Post-operative Condition: stable Disposition: PACU Aftercare: routine postop
--- NOTE | 2021-02-15 18:35 | SUR.PHASEI ---
Pt was brought to PACU at approx 1745. I immediately began massaging her fundus area where a large amount of clots were expressed along with free flow of bright red blood. Dr Gore was just coming out of the dressing room so I asked her to check and she immediately began massaging as well also expressing a large volume of clots. She asked for a pair of size 7 sterile gloves which I did and she inserted one gloved hand inside her vagina and the other was used to massage. Pt was cleaned multiple times with a new racquel placed after each cleaning so we had a visual of how much blood product she was losing. Cytosin was infusion as well. After a few more massages, Dr Gore was satisfied as stated she would call L&D and give them instructions for following up on their end. After a few more rounds of vitals I massaged just prior to transporting her and while she was free flowing blood only one small clot the size of my little finger was expressed. Pt was transported to L&D to room 2. I assisted Catrachita in massaging and again only on small clot was express but pt continued to free flow blood. Pt was cleaned and new chuk was placed and I departed with pt in stable condition under the care of MAMADOU Domínguez
[2021-02-15] MEDS: TRANEXAMIC ACID 1,000 MG in SODIUM CHLORIDE 0.9% 100 ML 200 ML IV (20:42)
[2021-02-15] MEDS: KETOROLAC 30 MG/ML VIAL IV (23:22)
[2021-02-16] MEDS: KETOROLAC 30 MG/ML VIAL IV (05:40)
[2021-02-16 06:39] LABS: Hemoglobin 6.7 g/dL (12.0-16.0)
[2021-02-16 09:06] VITALS: BP 138/92; PULSE 106
[2021-02-16] MEDS: DOCUSATE 100 MG CAPSULE 200 MG PO (09:06)
[2021-02-16] MEDS: LABETALOL 100 MG TABLET 200 MG PO ×3 (09:06→21:12)
[2021-02-16] MEDS: PRENATAL VIT,CALC/IRON/FOLIC 1 TABLET 1 TAB PO (09:07)
[2021-02-16] MEDS: ACETAMINOPHEN 325 MG TABLET 650 MG PO ×2 (12:31→13:06)
[2021-02-16] MEDS: IBUPROFEN 600 MG TABLET PO ×2 (12:31→13:07)
[2021-02-16 14:39] VITALS: BP 151/97; PULSE 113
--- NOTE | 2021-02-16 15:00 | PM.OBPN.1 ---
Subjective - OB Subjective Patient comments: no complaints and pain well controlled [place] baby status: doing well and nursing well feeding status: exclusively breast feeding Date Patient Seen: 02/16/21 Time Patient Seen: 07:30 Exam Vital Signs (past 8 hours): - 02/16/21 09:06 02/16/21 14:39 Pulse Rate 106 H 113 H Blood Pressure 138/92 H 151/97 H Oxygen Delivery Method Room Air Narrative Exam Narrative: Generally: Patient is sitting up in bed, holding , no acute distress Lungs: Clear to auscultation bilaterally Cardiovascular: Regular rate and rhythm Fundus: U-3 Incision: Clean dry and intact with Aquacel dressing Extremities: 1+ edema, 1+ DTRs, no clonus, negative Homans Objective Labs Result Diagrams: 02/16/21 06:18 02/12/21 17:57 Labs: Laboratory Results - last 24 hr 02/16/21 06:18 Hgb 6.7 L* Hct 21.0 L Assessment & Plan Plan day: 1 plan OB: routine care Time Spent With Patient Time: Total time spent is greater than 50% in coordination of care (as documented) at patient's floor/unit and/or counseling patient: Time with patient: 15-24 minutes
[2021-02-16 16:00] VITALS: BP 149/90; PULSE 108; RESP 17; TEMP 37.2
[2021-02-16 21:12] VITALS: BP 155/102; PULSE 118
[2021-02-17] MEDS: LANOLIN OINT 7 GM 1 APPLIC TOP (01:19)
[2021-02-17] MEDS: IBUPROFEN 600 MG TABLET PO ×3 (01:20→15:49)
[2021-02-17] MEDS: OXYCODONE IR 5 MG TABLET PO ×2 (01:20→08:14)
[2021-02-17] MEDS: DOCUSATE 100 MG CAPSULE 200 MG PO (07:51)
[2021-02-17] MEDS: PRENATAL VIT,CALC/IRON/FOLIC 1 TABLET 1 TAB PO (07:52)
[2021-02-17] MEDS: ACETAMINOPHEN 325 MG TABLET 650 MG PO ×2 (08:14→15:48)
[2021-02-17] MEDS: NIFEdipine 30 MG TAB ER PO (08:17)
[2021-02-17 09:20] VITALS: BP 149/90; PULSE 108
[2021-02-17] MEDS: LABETALOL 100 MG TABLET 200 MG PO ×2 (09:20→15:48)
[2021-02-17 09:45] VITALS: BP 139/91
[2021-02-17 15:48] VITALS: BP 131/90
--- NOTE | 2021-02-26 09:56 | P.DS_ITS ---
Discharge Providers Provider Date of admission: 02/12/21 16:45 Discharge Date: 03/20/21 Primary care physician: Bowen Medrano MD Consults: 02/15/21 17:46 Consult to Real Estate Account Executive Routine Comment: Discharge provider: Carole Gore MD Summary Hospital Course Date Patient Seen: 03/20/21 Time Patient Seen: 09:30 Diagnoses: 36-5/7 weeks gestation Preeclampsia Cervical ripening Pitocin induction of labor Failed induction Primary low-transverse section Hospital Course: Patient is a 25-year-old 2 para 1 who presented to the office on February 12, 2021 and was found to have preeclampsia. She presented to Labor and delivery and was admitted on February 13, 2021 for cervical ripening and then Pitocin induction of labor. She received 1 dose of Cervidil. She received an epidural for pain management. On 02/14 she had Pitocin all day with no cervical change. The Pitocin was turned off overnight. It was started again in the morning of February 15, 2021. There was no cervical change by that evening. A primary low-transverse section was done for a failed induction. Her postoperative course was complicated by labile blood pressure which was then controlled with nifedipine and labetalol. She was discharged home on February 17, 2021 to follow up at 1 week for blood pressure check and Aquacel dressing removal. Peripartum Data Delivery Method: Section Laceration Description: None Episiotomy description: None Procedures: Cervidil cervical ripening Pitocin induction of labor Epidural analgesia Primary low-transverse section complications: other (Labile blood pressure) 1: Gender: Female Disposition of : home Status at Discharge Cognitive/behavioral status at discharge: oriented Functional status at discharge: independent ambulation Overall status at discharge: patient is progressing back to baseline Time Spent with Patient Time attestation: Total time spent providing and/or coordinating discharge servi grey: Time spent: Less than 30 minutes Objective Labs Result Diagrams: 02/16/21 06:18 02/12/21 17:57 Exam Vital Signs (past 8 hours): Oxygen Delivery Method Room Air Narrative Exam Narrative: Generally: Patient is sitting up in bed, holding infant, no acute distress Lungs: Clear to auscultation bilaterally Cardiovascular: Regular rate and rhythm Fundus: Firm at U -2 Incision: Clean dry and intact with Aquacel dressing Extremities: 1+ edema, 1+ DTRs, negative Homans Discharge Plan Discharge Plan Patient Disposition: Home Provider Discharge Comment: Call with fever, chills, redness or drainage around the incision, or bleeding vaginally more than a pad in an hour. Call with headache, blurred vision, or spots before her eyes Ibuprofen 600 mg every 6 hours Stool softener once or twice a day until back to normal Discharge orders & Medications Prescriptions: New oxycodone 5 mg tablet 5 mg PO Q4H PRN (Reason: pain) Qty: 20 RF: 0 docusate sodium [Colace] 100 mg capsule 100 mg PO DAILY Qty: 20 RF: 0 Continued prenat.vits,paulo,[id number] Tablet 1 tab PO DAILY RF: 0 hydrocodone-acetaminophen 5-300 mg tablet 1 tab PO Q6H PRN (Reason: pain) Qty: 10 RF: 0 lfbsaeyfkb-ruwqkzvvpijtx-town [Fioricet] 50-300-40 mg capsule 1 cap PO Q6H PRN (Reason: pain) Qty: 10 RF: 0 labetalol 200 mg tablet 200 mg PO TID RF: 0 Discontinued ondansetron 4 mg tablet,disintegrating 4 mg PO Q6H PRN (Reason: nausea and vomiting) Qty: 20 RF: 1 Unisom (doxylamine) 25 mg tablet 25 mg PO BEDTIME MDD 25mg PRN (Reason: Sleep) RF: 0 pyridoxine (vitamin B6) 25 mg tablet 25 mg PO DAILY RF: 0 riboflavin (vitamin B2) 100 mg capsule, extended release 200 mg PO RF: 0 magnesium 200 mg tablet 200 mg PO DAILY RF: 0 ondansetron 4 mg tablet,disintegrating 4 mg PO Q8H PRN (Reason: nausea and vomiting) Qty: 30 RF: 0 sumatriptan succinate 50 mg tablet See Rx Instructions PO .COMPLEX Qty: 30 RF: 0 No Action nifedipine 30 mg tablet extended release 30 mg PO DAILY Qty: 30 RF: 2 Follow up/Referrals: Carole Gore MD [Physician] - 1 Week (Aquacel dressing removal on Tuesday, January at 3:45 pm) Diet/Activity/Treatments Diet: Regular Activity: No heavy lifting Skin/Wound/Dressing Care Report to your healthcare provider any signs of infection, such as:: chills, fever, increased pain, unusual drainage and unusual redness Dressing: Do not removed Visit Report/Discharge Packet Instructions: Pre-eclampsia, DI for , DI for Prescription Opioid Use Discharge Data Primary Care Provider: Bowen Medrano
== END 2021-02-17 15:50 | disposition home or self-care (01) | DRG 788 ==
PROVIDERS: Admitting Provider Obstetrics & Gynecology; PCP Family Medicine; Referring Provider Obstetrics & Gynecology; Visit Provider Obstetrics & Gynecology
PROC: 10D00Z1 Extraction of Products of Conception, Low, Open Approach (ICD-10-PCS; CPT 59514; principal; 2021-02-15 16:30)
DX: O41.03X0 Oligohydramnios, third trimester, not applicable or unspecified (principal); Z3A.36 36 weeks gestation of pregnancy; Z37.0 Single live birth; O13.4 Gestational [pregnancy-induced] hypertension without significant proteinuria, complicating childbirth; O61.0 Failed medical induction of labor; O99.824 Streptococcus B carrier state complicating childbirth; Z20.822 Contact with and (suspected) exposure to COVID-19; O99.891 Other specified diseases and conditions complicating pregnancy; J45.909 Unspecified asthma, uncomplicated; F90.9 Attention-deficit hyperactivity disorder, unspecified type; F41.9 Anxiety disorder, unspecified; F43.10 Post-traumatic stress disorder, unspecified; G43.909 Migraine, unspecified, not intractable, without status migrainosus
CPT/HCPCS: 01967; 01968; 36415; 59050; 59200; 59510; 59514; 76819; 82570; 84156; 84450; 84550; 85014; 85018; 85025; 86850; 86900; 86901; 87635; C9803; G0379; J0360; J0690; J0702; J1885; J2274; J2405; J2540; J2590

== ENCOUNTER 2021-05-27 02:16 | Emergency (ER) | payer OTHER, MEDICAID, SELFPAY ==
[2021-05-27] VITALS (10 sets, daily range): BP systolic 158–188; BP diastolic 78–106; PULSE 72–99; RESP 11–26; TEMP 35.8; O2SAT 96–100; BMI 30.4
--- NOTE | 2021-05-27 02:23 | ED_ITS ---
HPI - Seizure General Chief Complaint: Seizure Stated Complaint: seizure Time Seen by Provider: 05/27/21 02:23 History of Present Illness HPI Narrative: Patient is a 26-year-old female with history of lupus, PTSD, depression, anxiety, seizure disorder is presenting today with seizure. She states she had seizure disorder as a child she at 1 point was on anti seizure medication but she developed a side effect it was thought there was interaction between lupus medication and seizure medications so she stopped the seizure medicine. Has not really had seizures until she got . During her she was seen by a neurologist who treated her with vitamin B which seemed to help her seizures. She was diagnosed with gestational hypertension but never preeclampsia. She is brought in today by for seizures at home. While sitting in registration chair started having seizure shaking all over lasting for couple of minutes but she is able to respond and tell me her name and allergies. It has been stressful she was recently seen by her primary care provider who refilled her hypertension medication including labetalol and nifedipine however she has been unable to get them. Saying that the pharmacy is unable to give them to her they tried transferring the prescription to [facility] instead they still can not get them. Related Data Home Medications Medication Instructions Recorded Confirmed prenat.vits,paulo,[id number] 1 tab PO DAILY 08/12/20 05/19/21 Previous Rx's Medication Instructions Recorded labetalol 200 mg tablet 200 mg PO BID #60 tab 05/19/21 nifedipine 30 mg tablet,extended 30 mg PO DAILY #30 tab 05/19/21 release Allergies Allergy/AdvReac Type Severity Reaction Status Date / Time banana Allergy Severe Swelling Verified 04/02/21 16:24 to throat - extreme venom-honey bee Allergy Severe Swelling Verified 04/02/21 16:24 and SOB diphenhydramine Allergy Intermediate Itchy Verified 04/02/21 16:24 [From Benadryl Allergy] feeling to throat : makes me freak out Review of Systems Review of Systems Narrative: GENERAL: Denies chills, fatigue, malaise, fever, sweats, travel HEENT: Denies sinus pain, ear pain, sore throat, difficulty swallowing, neck pain RESPIRATORY: Denies dyspnea, cough, wheezing, hemoptysis, sputum. CARDIOVASCULAR: Denies chest pain, palpitations, orthopnea, edema GASTROINTESTINAL: Denies nausea, vomiting, abdominal pain, diarrhea, consti pation, melena. : Denies dysuria, frequency, incontinence, hematuria, urinary retention, flank pain. MUSCULOSKELETAL: Denies weakness, joint pain, or bony pain SKIN: No rash, no erythema, no pruritus NEUROLOGIC: See HPI PSYCHIATRIC: No concerning psychosocial issues. 12 point review of systems is negative except for those stated above and HPI Patient History Medical History Acne (~2006) ADHD (~2011) Allergies (~2001) Anemia (~2002) Ankle fracture (~2004) Ankle pain (~2006) Anxiety (~1997) Aspergers' syndrome Asthma (~2005) Autism (~2015) Carpal tunnel syndrome (~2011) Chronic back pain (~2006) Depression (~2000) Disordered eating Eczema (~2004) Fatigue Finger fracture, left (~2007) Foot pain (~2006) Headache (~1998) Heavy menstrual period (~2004) History of being hospitalized (~2009) History of bipolar disorder (~2008) History of lumbar puncture (~2011) Hypertension (~2017) Joint pain (~2000) Kidney stones (~2013) Lupus (~2000) Marijuana use in remission (~05/2020) Migraine (~1998) Mixed anxiety depressive disorder Painful menstrual periods (~2006) Partial blindness (~2009) Pneumonia PTSD (post-traumatic stress disorder) (~2005) Seizure (~2020) Shoulder pain (~2007) Smoker Social anxiety disorder (~1997) Syncopal episodes (~2018) Vertigo (~2013) Surgical History Anesthesia H/O dilation and curettage (~2009) S/P tonsillectomy and adenoidectomy (~1999) Status post laser lithotripsy of ureteral calculus (~2013) Surgical procedure planned Family History Mother Respiratory abnormalities Asthma History of prediabetes Bipolar 1 disorder Diabetes mellitus History of heart disease Mental health problem Father Family estrangement PTSD (post-traumatic stress disorder) Hypertension Mental health problem Grandmother Respiratory abnormalities Grandfather Stroke Rib fracture History of prediabetes High blood sugar Heart palpitations Alcohol addiction Depression Hypertension Hyperlipidemia Grandmother Family estrangement Grandfather Family estrangement Brother Asthma Family/Other Bipolar 1 disorder Social History marital status: unmarried,living together number of children: 0 household members: significant other lives independently: Yes pets and animals: No education level: high school occupational status: employed current occupational exposures/hazards: Yes special med needs: No Smoking Status: Former smoker Tobacco: How many years used: 20 second hand exposure: No alcohol intake: former substance use type: does not use and marijuana Smoking Status: Former smoker tobacco type: cigarettes alcohol intake frequency: 0-2 drinks per day Substance Use Type: does not use Exam Initial Vital Signs Initial Vital Signs: Vital Signs Pulse Rate 99 H 05/27/21 02:28 Respiratory Rate 26 H 05/27/21 02:28 Blood Pressure 172/105 H 05/27/21 02:28 Pulse Oximetry 99 05/27/21 02:28 GENERAL: Patient is active with shaking all over HEENT: Head atraumatic,EOMI, pupils reactive, face symmetric, moist mucous membranes CARDIOVASCULAR: Regular rate and rhythm without murmurs, rubs or gallops. RESPIRATORY: Breath sounds equal bilaterally, no wheezes rales or rhonchi. ABDOMEN: Soft, nontender. Normoactive bowel sounds all 4 quadrants. No guarding or rebound. EXTREMITIES: Normal range of motion, no clubbing or edema. Neurovascularly intact NEUROLOGICAL: Shaking violently all extremities eyes closed is able to tell me her name SKIN: Warm, dry, no laceration, no petechiae, no rashes or lesions. Course Orders Ordered: ED Orders 05/27/21 02:25 CMP [Comprehensive Metabolic Panel] Stat Complete Blood Count AUTO DIFF Stat Magnesium Stat Phosphorous Stat Prolactin Stat Troponin & CK Cardiac Panel Stat 05/27/21 02:33 CT head/brain wo con Stat 05/27/21 03:17 EKG-12 Lead Stat 05/27/21 04:00 Urine Drug Screen, Rapid Stat Urine Microscopic Stat Discontinued Medications Sodium Chloride (Normal Saline 0.9%) 1,000 mls @ 1,000 mls/hr IV BOLUS ONE Stop: 05/27/21 03:25 Last Infusion: 05/27/21 03:32 Dose: 0 mls/hr Documented by: Admin: 05/27/21 02:31 Dose: 1,000 mls/hr Documented by: PIEDAD Labetalol HCl (Labetalol 100 Mg Tablet) 200 mg PO NOW ONE Stop: 05/27/21 03:18 Last Admin: 05/27/21 03:45 Dose: 200 mg Documented by: YARI Lorazepam (Lorazepam 2 Mg/Ml Inj) 1 mg IV NOW ONE Stop: 05/27/21 02:25 Last Admin: 05/27/21 02:31 Dose: Not Given Documented by: PIEDAD Lorazepam (Lorazepam 2 Mg/Ml Inj) 2 mg IV NOW ONE Stop: 05/27/21 02:31 Last Admin: 05/27/21 02:31 Dose: 2 mg Documented by: PIEDAD Nifedipine (Nifedipine 30 Mg Tab Er) 30 mg PO NOW ONE Stop: 05/27/21 03:18 Last Admin: 05/27/21 03:45 Dose: 30 mg Documented by: YARI Vital Signs Vital signs: Vital Signs - 8 hr 05/27/21 02:28 05/27/21 02:30 05/27/21 02:31 Temperature Pulse Rate 99 H 77 79 Respiratory Rate 26 H 26 H 23 Blood Pressure 172/105 H 188/94 H Pulse Oximetry 99 100 97 05/27/21 02:34 05/27/21 02:53 05/27/21 03:00 Temperature 96.5 F L Pulse Rate 72 78 74 Respiratory Rate 25 H 20 19 Blood Pressure 172/105 H 161/104 H 164/106 H Pulse Oximetry 96 96 100 05/27/21 03:30 05/27/21 03:45 05/27/21 04:04 Temperature Pulse Rate 76 75 97 H Respiratory Rate 19 Blood Pressure 184/94 H 184/94 H Pulse Oximetry 100 96 05/27/21 04:06 Temperature Pulse Rate 83 Respiratory Rate 11 L Blood Pressure 158/78 H Pulse Oximetry 99 MDM - Seizure Lab Data Result diagrams: 05/27/21 02:25 05/27/21 02:25 Labs: Lab Results 05/27/21 05/27/21 05/27/21 Range/Units 02:25 02:25 02:25 WBC 15.6 H (4.5-11.0) X10^3/uL RBC 6.30 H (4.0-5.2) X10^6/uL Hgb 13.4 (12.0-16.0) g/dL Hct 42.6 (36-46) % MCV 67.6 L (80-100) fL MCH 21.3 L (26-34) PG MCHC 31.6 (30-36) % RDW 18.7 H (11.6-14.8) % Plt Count 234 (150-400) X10^3/uL Neut % (Auto) 54.9 (50-75) % Lymph % (Auto) 32.3 (25-40) % Treasure % (Auto) 7.0 (3-14) % Eos % (Auto) 4.9 H (2-4) % Baso % (Auto) 0.9 (0-2) % Neut # (Auto) 8600 H (7527-1553) /uL Lymph # (Auto) 5000 H (8693-4304) /uL Treasure # (Auto) 1100 H (0-900) /uL Eos # (Auto) 800 H (0-450) /uL Baso # (Auto) 100 (0-100) /uL RBC Morphology See below Hypochromasia 2+ H Poikilocytosis 1+ H Anisocytosis 2+ H Sodium 139 (137-145) mmol/L Potassium 3.9 (3.4-5.1) mmol/L Chloride 106 (98-107) mmol/L Carbon Dioxide 23 (22-32) mmol/L BUN 12 (7-17) mg/dL Creatinine 0.90 (0.52-1.04) mg/dL Estimated GFR > 60.0 (>60) mL/min BUN/Creatinine Ratio 13.3 (6-22) Glucose 96 (70-100) mg/dL Calcium 10.1 (8.4-10.2) mg/dL Phosphorus 3.4 (2.5-4.5) mg/dL Magnesium 1.9 (1.6-2.3) mg/dL Total Bilirubin 0.6 (0.2-1.3) mg/dL AST 30 (14-36) IU/L ALT 19 (<35) IU/L Alkaline Phosphatase 68 (38-126) U/L Total Creatine Kinase (30-135) U/L CK-MB (CK-2) (<2.37) ng/mL CK-MB (CK-2) Rel Index (1.5-5.0) % Troponin I (0.01-0.034) ng/mL Total Protein 8.4 H (6.3-8.2) g/dL Albumin 4.8 (3.5-5.0) g/dL Globulin 3.6 (1.7-4.1) g/dL Albumin/Globulin Ratio 1.3 (1.0-2.8) Prolactin 33.0 H (3.0-18.6) ng/mL Urine RBC (0-5/HPF) Urine WBC (0-5/HPF) Ur Squamous Epith Cells (0-5/HPF) Urine Bacteria (None) Ur Culture Indicated? U Opiates 300ng/mL cut (Negative) Ur Oxycodone Screen (Negative) Urine Methadone Screen (Negative) Ur Barbiturates Screen (Negative) U Tricyclic Antidepress (Negative) Ur Phencyclidine Scrn (Negative) Ur Amphetamines Screen (Negative) U Methamphetamines Scrn (Negative) Ur MDMA Scrn (Ecstasy) (Negative) U Benzodiazepines Scrn (Negative) Urine Cocaine Screen (Negative) U Marijuana (THC) Screen (Negative) 05/27/21 05/27/21 05/27/21 Range/Units 02:25 04:00 04:00 WBC (4.5-11.0) X10^3/uL RBC (4.0-5.2) X10^6/uL Hgb (12.0-16.0) g/dL Hct (36-46) % MCV (80-100) fL MCH (26-34) PG MCHC (30-36) % RDW (11.6-14.8) % Plt Count (150-400) X10^3/uL Neut % (Auto) (50-75) % Lymph % (Auto) (25-40) % Treasure % (Auto) (3-14) % Eos % (Auto) (2-4) % Baso % (Auto) (0-2) % Neut # (Auto) (6588-7560) /uL Lymph # (Auto) (8814-4179) /uL Treasure # (Auto) (0-900) /uL Eos # (Auto) (0-450) /uL Baso # (Auto) (0-100) /uL RBC Morphology Hypochromasia Poikilocytosis Anisocytosis Sodium (137-145) mmol/L Potassium (3.4-5.1) mmol/L Chloride (98-107) mmol/L Carbon Dioxide (22-32) mmol/L BUN (7-17) mg/dL Creatinine (0.52-1.04) mg/dL Estimated GFR (>60) mL/min BUN/Creatinine Ratio (6-22) Glucose (70-100) mg/dL Calcium (8.4-10.2) mg/dL Phosphorus (2.5-4.5) mg/dL Magnesium (1.6-2.3) mg/dL Total Bilirubin (0.2-1.3) mg/dL AST (14-36) IU/L ALT (<35) IU/L Alkaline Phosphatase (38-126) U/L Total Creatine Kinase 179 H (30-135) U/L CK-MB (CK-2) 0.71 (<2.37) ng/mL CK-MB (CK-2) Rel Index 0.4 L (1.5-5.0) % Troponin I < 0.012 (0.01-0.034) ng/mL Total Protein (6.3-8.2) g/dL Albumin (3.5-5.0) g/dL Globulin (1.7-4.1) g/dL Albumin/Globulin Ratio (1.0-2.8) Prolactin (3.0-18.6) ng/mL Urine RBC 0-1/hpf (0-5/HPF) Urine WBC None seen (0-5/HPF) Ur Squamous Epith Cells 0-1 /hpf (0-5/HPF) Urine Bacteria Occasional (0-1) (None) Ur Culture Indicated? Cult not indicated U Opiates 300ng/mL cut Negative (Negative) Ur Oxycodone Screen Negative (Negative) Urine Methadone Screen Negative (Negative) Ur Barbiturates Screen Negative (Negative) U Tricyclic Antidepress Negative (Negative) Ur Phencyclidine Scrn Negative (Negative) Ur Amphetamines Screen Negative (Negative) U Methamphetamines Scrn Negative (Negative) Ur MDMA Scrn (Ecstasy) Negative (Negative) U Benzodiazepines Scrn Negative (Negative) Urine Cocaine Screen Negative (Negative) U Marijuana (THC) Screen Positive H (Negative) Point of Care Testing Test Results Negative Urine Dip Bedside Urine Glucose Negative Bedside Urine Bilirubin - Negative Bedside Urine Ketone - Negative Urine Specific Rowley 1.015 Bedside Urine Occult Blood + Bedside Urine pH 6.5 Bedside Urine Protein - Negative Bedside Urine Urobilinogen - Negative Bedside Urine Nitrite - Negative Bedside Urine Leukocytes - Negative Esterase Imaging Data CT scan - head: Radiologist's Impression: Preliminary report is no acute intracranial abnormality ECG Data Interpretation: Sinus rhythm rate 78 MD interval 140 QRS [address] changes or ischemic change MDM Narrative Medical decision making narrative: While shaking patient is awake and alert able to answer questions no postictal period, not consistent with seizure presentation. With her she was noted to have multiple seizures but never actually diagnosed with preeclampsia, only gestational hypertension. She was seen by a neurologist who did not put her on any anti seizure medication only treated her for vitamin-B deficiency which she says improved her seizures. She states that she was not put on antiseizure medication due to . She is actually scheduled does have a follow-up visit with neurology this month. Patient is under significant amount of stress with a new born infant, lack of sleep unable to get her blood pressure medication and multiple stress factors. At this time I am not convinced that what I saw today was a seizure, possibly more of an anxiety reaction. She is given her blood pressure came emergency department because she states that she can tell her blood pressure is elevated because of chest pain. There is no evidence of ischemia on EKG or troponin. It sounds though she is having difficult time with insurance and getting her prescriptions filled. Patient is calm significantly 2 mg of Ativan. Discharge Plan Departure Patient Disposition: Home Clinical Impression: Seizures, Hypertension Instructions: DI for Seizure Disorder -- Adult Activity Restrictions/Additional Instructions: *You have been diagnosed with hypertension, seizure *What to do: Follow-up with your neurologist. They may start you on seizure medication. I recommend that he monitor your blood pressure at home with a blood pressure cuff. Taking it once daily riding it down for your primary care provider *Continue to take medications as directed *Follow up with your primary care provider in 2-3 days *Return to ER if you should have current seizure, chest pain, or any new, worsening or concerning symptoms Prescriptions: No Action prenat.vits,paulo,[id number] Tablet 1 tab PO DAILY 0RF labetalol 200 mg tablet 200 mg PO BID Qty: 60 1RF nifedipine 30 mg tablet extended release 30 mg PO DAILY Qty: 30 2RF Referrals: Micah Yepez MD [Non-Staff] - Bowen Medrano MD [Primary Care Provider] -
[2021-05-27] MEDS: LORazepam 2 MG/ML INJ IV (02:31)
[2021-05-27] MEDS: SODIUM CHLORIDE 0.9% 1,000 ML 1000 ML IV (02:31)
--- NOTE | 2021-05-27 02:33 | DI.CT.S_ITS ---
PROCEDURE: CT HEAD/BRAIN WO CON INDICATIONS: seizure TECHNIQUE: Noncontrast 4.5 mm thick angled axial sections acquired from the foramen magnum to the vertex, with coronal and sagittal reformats. For radiation dose reduction, the following was used: automated exposure control, adjustment of mA and/or kV according to patient size. COMPARISON: [facility], CT, CT HEAD/BRAIN WO CON, 09/16/2020, 19:34. FINDINGS: Image quality: Excellent. CSF spaces: Basal cisterns are patent. No extra-axial fluid collections. Ventricles are normal in size and shape. Brain: No midline shift. No intracranial masses or hemorrhage. Vega-white matter interface is normal. Skull and face: Calvarium and visualized facial bones are intact, without suspicious lesions. Sinuses: Visualized sinuses and mastoids are clear. IMPRESSION: CT head without acute intracranial abnormalities. No mass or mass effect visualized. No significant discrepancy with the caustic cresylate shift superintendent radiology preliminary report. Dictated by: Lawrence Mka M.D. on 05/27/2021 at 7:06 Approved by: Lawrence Mak M.D. on 05/27/2021 at 7:07
[2021-05-27 02:38] LABS: Eosinophils Absolute Auto 800 /uL (0-450); Hemoglobin 13.4 g/dL (12.0-16.0)
[2021-05-27 02:42] LABS: Alanine Aminotransferase 19 IU/L (<35); Albumin 4.8 g/dL (3.5-5.0); Albumin Globulin Ratio 1.3 (1.0-2.8); Alkaline Phosphatase 68 U/L (38-126); Aspartate Aminotransferase 30 IU/L (14-36); BUN Creatinine Ratio 13.3 (6-22); Bilirubin Total 0.6 mg/dL (0.2-1.3); Blood Urea Nitrogen 12 mg/dL (7-17); Calcium 10.1 mg/dL (8.4-10.2); Carbon Dioxide 23 mmol/L (22-32); Chloride 106 mmol/L (98-107); Estimated Glomerular Filt Rate > 60.0 mL/min (>60); Globulin 3.6 g/dL (1.7-4.1); Glucose 96 mg/dL (70-100); HEMOLYSIS 39 (0-50); Potassium 3.9 mmol/L (3.4-5.1); Sodium 139 mmol/L (137-145); Total Protein 8.4 g/dL (6.3-8.2)
[2021-05-27 02:43] LABS: Add Manual Diff / Slide Review NO; Basophils Absolute Auto 100 /uL (0-100); Basophils Percent Auto 0.9 % (0-2); Eosinophils Percent Auto 4.9 % (2-4); Hematocrit 42.6 % (36-46); Lymphocytes Absolute Auto 5000 /uL (1100-4500); Lymphocytes Percent Auto 32.3 % (25-40); Magnesium 1.9 mg/dL (1.6-2.3); Mean Corpuscular HGB Conc 31.6 % (30-36); Mean Corpuscular Hemoglobin 21.3 PG (26-34); Mean Corpuscular Volume 67.6 fL (80-100); Monocytes Absolute Auto 1100 /uL (0-900); Neutrophils Absolute Auto 8600 /uL (1500-7000); Neutrophils Percent Auto 54.9 % (50-75); Phosphorous 3.4 mg/dL (2.5-4.5); Platelet Count 234 X10^3/uL (150-400); Red Cell Distribution Width 18.7 % (11.6-14.8); White Blood Cell Count 15.6 X10^3/uL (4.5-11.0)
[2021-05-27 03:02] LABS: Anisocytosis 2+; Hypochromasia 2+
[2021-05-27 03:06] LABS: Poikilocytosis 1+
[2021-05-27 03:34] LABS: Creatine Kinase 179 U/L (30-135)
[2021-05-27] MEDS: NIFEdipine 30 MG TAB ER PO (03:45)
[2021-05-27] MEDS: LABETALOL 100 MG TABLET 200 MG PO (03:45)
[2021-05-27 03:47] LABS: Troponin I < 0.012 ng/mL (0.01-0.034)
[2021-05-27 03:54] LABS: CKMB % Relative Index 0.4 % (1.5-5.0); Creatine Kinase MB 0.71 ng/mL (<2.37)
[2021-05-27 04:17] LABS: UR Morphine/Opiate cutoff 300 Negative (Negative); Ur Creatinine Normal (Normal); Ur Specific Gravity Normal (Normal); Urine Amphetamines Negative (Negative); Urine Barbiturates Negative (Negative); Urine Benzodiazepines Negative (Negative); Urine Cocaine Negative (Negative); Urine MDMA Negative (Negative); Urine Methadone Negative (Negative); Urine Methamphetamines Negative (Negative); Urine Oxycodone Negative (Negative); Urine Phencyclidine Negative (Negative); Urine Tetrahydrocannabinol Positive (Negative); Urine Tricyclic Antidepressant Negative (Negative); Urine pH Normal (Normal)
[2021-05-27 04:22] LABS: Bacteria Urine Occasional (0-1); Culture Indicated Urine Cult Not Indicated; RBC Urine 0-1/HPF (0-5/HPF); Squamous Epithelial Cell Urine 0-1 /HPF (0-5/HPF); WBC Urine None Seen (0-5/HPF)
== END 2021-05-27 04:28 | disposition home or self-care (01) ==
PROVIDERS: Emergency Provider Emergency Medicine; PCP Family Medicine
DX: R56.9 Unspecified convulsions (principal); I10 Essential (primary) hypertension; Z87.891 Personal history of nicotine dependence
CPT/HCPCS: 36415; 70450; 80053; 80305; 81003; 81015; 81025; 82550; 82553; 83735; 84100; 84146; 84484; 85025; 93005; 96361; 96374; 99284; J2060

== ENCOUNTER → 2021-09-15 14:21 | Outpatient (CLI) | payer OTHER, MEDICAID, SELFPAY ==
[2021-09-15 15:40] LABS: Add Manual Diff / Slide Review NO; Basophils Absolute Auto 100 /uL (0-100); Basophils Percent Auto 0.9 % (0-2); Eosinophils Absolute Auto 300 /uL (0-450); Eosinophils Percent Auto 3.6 % (2-4); Hematocrit 38.1 % (36-46); Hemoglobin 12.5 g/dL (12.0-16.0); Lymphocytes Absolute Auto 2600 /uL (1100-4500); Lymphocytes Percent Auto 27.2 % (25-40); Mean Corpuscular HGB Conc 32.7 % (30-36); Mean Corpuscular Hemoglobin 22.7 PG (26-34); Mean Corpuscular Volume 69.4 fL (80-100); Monocytes Absolute Auto 600 /uL (0-900); Monocytes Percent Auto 6.5 % (3-14); Neutrophils Absolute Auto 5900 /uL (1500-7000); Neutrophils Percent Auto 61.8 % (50-75); Platelet Count 181 X10^3/uL (150-400); Red Blood Cell Count 5.49 X10^6/uL (4.0-5.2); White Blood Cell Count 9.5 X10^3/uL (4.5-11.0)
[2021-09-15 15:57] LABS: Hypochromasia 2+; Microcytosis 1+
[2021-09-15 15:58] LABS: Platelet Morphology Comment NOTE:
[2021-09-15 16:08] LABS: Alanine Aminotransferase 17 IU/L (<35); Albumin 4.8 g/dL (3.5-5.0); Albumin Globulin Ratio 1.4 (1.0-2.8); Alkaline Phosphatase 65 U/L (38-126); Aspartate Aminotransferase 25 IU/L (14-36); BUN Creatinine Ratio 9.1 (6-22); Bilirubin Total 0.5 mg/dL (0.2-1.3); Blood Urea Nitrogen 7 mg/dL (7-17); C-Reactive Protein Quant < 0.5 mg/dL (<1.0); Calcium 9.2 mg/dL (8.4-10.2); Carbon Dioxide 26 mmol/L (22-32); Chloride 108 mmol/L (98-107); Estimated Glomerular Filt Rate > 60.0 mL/min (>60); Globulin 3.5 g/dL (1.7-4.1); Glucose 81 mg/dL (70-100); HEMOLYSIS < 15 (0-50); Potassium 3.9 mmol/L (3.4-5.1); Sodium 138 mmol/L (137-145); Total Protein 8.3 g/dL (6.3-8.2)
[2021-09-15 16:40] LABS: Erythrocyte Sedimentation Rate 10 MM/HR (0-20)
[2021-09-15 16:54] LABS: TSH w/ Reflex to FT4 0.78 uIU/mL (0.47-4.68)
[2021-09-17 14:10] LABS: ANA Screen, IFA Negative (.)
== END ==
PROVIDERS: PCP Family Medicine; Referring Provider Family Medicine; Visit Provider Family Medicine
DX: M32.9 Systemic lupus erythematosus, unspecified (principal); R56.9 Unspecified convulsions; I10 Essential (primary) hypertension
CPT/HCPCS: 36415; 80053; 84443; 85025; 85651; 86038; 86140

== ENCOUNTER 2022-06-14 08:14 | Emergency (ER) | payer OTHER, MEDICAID, SELFPAY ==
[2022-06-14 08:33] VITALS: BP 160/99; PULSE 88; RESP 24; TEMP 37; O2SAT 97; BMI 28.7
--- NOTE | 2022-06-14 09:30 | DI.RAD.S_ITS ---
PROCEDURE: XR CHEST 1V INDICATIONS: cough TECHNIQUE: One view of the chest was acquired. COMPARISON: None. FINDINGS: Surgical changes and devices: None. Lungs and pleura: Minimal ill-defined airspace opacities of the bilateral lower lungs without focal consolidation. No pneumothorax or pleural effusion. Mediastinum: Mediastinal contours appear normal. Heart size is normal. Bones and chest wall: No suspicious bony lesions. Overlying soft tissues appear unremarkable. IMPRESSION: Minimal ill-defined bibasilar airspace opacities which likely represent atelectasis. Early airspace disease not excluded if clinically appropriate. No focal consolidation seen. Dictated by: Lawrence Mak M.D. on 06/14/2022 at 10:14 Approved by: Lawrence Mak M.D. on 06/14/2022 at 10:15
--- NOTE | 2022-06-14 09:30 | ED.SYNCOPE ---
HPI - Syncope General Chief Complaint: Dizziness Stated Complaint: disoriented fell in bathroom hit head Time Seen by Provider: 06/14/22 08:57 Source: patient Mode of arrival: Ambulatory Limitations: no limitations History of Present Illness HPI narrative: Patient is a 27-year-old female history of hypertension out of her hypertension medications for last couple of days presents today after syncopal episode. She says she is was not feeling well yesterday some body aches and cough. She says he got up to use the restroom this morning she was coughing so hard she passed out and hit her head. Brief loss of consciousness. She denies any chest pain. She says she is not drinking much because her throat hurts. Every time she breathes she coughs. She is a mild headache. Other people are not yet sick in the house. Patient states that she occasionally smokes marijuana but not a daily user. She also states that she has refills of her blood pressure medications but just has not picked it up yet. Related Data Home Medications Medication Instructions Recorded Confirmed prenat.paulo oconnor,[id number] 1 tab PO DAILY 08/12/20 09/15/21 hydroxyzine pamoate 25 mg capsule 50 mg PO BEDTIME 07/16/21 09/15/21 (Vistaril) Previous Rx's Medication Instructions Recorded labetalol 200 mg tablet 200 mg PO BID #90 tabs 10/15/21 nifedipine 30 mg tablet,extended 60 mg PO DAILY #90 tabs 10/15/21 release albuterol sulfate 90 mcg/actuation 2 puff inhalation Q4-6H PRN 06/14/22 aerosol inhaler shortness of breath or wheezing #8.5 grams Allergies Allergy/AdvReac Type Severity Reaction Status Date / Time banana Allergy Severe Swelling Verified 06/14/22 08:33 to throat - extreme venom-honey bee Allergy Severe Swelling Verified 06/14/22 08:33 and SOB diphenhydramine Allergy Intermediate Itchy Verified 06/14/22 08:33 [From Benadryl Allergy] feeling to throat : makes me freak out Review of Systems Review of Systems Narrative: GENERAL: See HPI HEENT: Denies sinus pain, ear pain, sore throat, difficulty swallowing, neck pain RESPIRATORY: See HPI CARDIOVASCULAR: Denies chest pain, palpitations, orthopnea, edema GASTROINTESTINAL: Denies nausea, vomiting, abdominal pain, diarrhea, constipation, melena. : Denies dysuria, frequency, incontinence, hematuria, urinary retention, flank pain. MUSCULOSKELETAL: Denies weakness, joint pain, or bony pain SKIN: No rash, no erythema, no pruritus NEUROLOGIC: See HPI PSYCHIATRIC: No concerning psychosocial issues. 12 point review of systems is negative except for those stated above and HPI Patient History Medical History Acne (~2006) ADHD (~2011) Allergies (~2001) Anemia (~2002) Ankle fracture (~2004) Ankle pain (~2006) Anxiety (~1997) Aspergers' syndrome Asthma (~2005) Autism (~2015) Carpal tunnel syndrome (~2011) Chronic back pain (~2006) Depression (~2000) Disordered eating Eczema (~2004) Fatigue Finger fracture, left (~2007) Foot pain (~2006) Headache (~1998) Heavy menstrual period (~2004) History of being hospitalized (~2009) History of bipolar disorder (~2008) History of lumbar puncture (~2011) Hypertension (~2017) Joint pain (~2000) Kidney stones (~2013) Lupus (~2000) Marijuana use in remission (~05/2020) Migraine (~1998) Mixed anxiety depressive disorder Painful menstrual periods (~2006) Partial blindness (~2009) Pneumonia PTSD (post-traumatic stress disorder) (~2005) Seizure (~2020) Shoulder pain (~2007) Smoker Social anxiety disorder (~1997) Syncopal episodes (~2018) Vertigo (~2013) Surgical History Anesthesia H/O dilation and curettage (~2009) S/P tonsillectomy and adenoidectomy (~1999) Status post laser lithotripsy of ureteral calculus (~2013) Surgical procedure planned Family History Mother Respiratory abnormalities Asthma History of prediabetes Bipolar 1 disorder Diabetes mellitus History of heart disease Mental health problem Father Family estrangement PTSD (post-traumatic stress disorder) Hypertension Mental health problem Grandmother Respiratory abnormalities Grandfather Stroke Rib fracture History of prediabetes High blood sugar Heart palpitations Alcohol addiction Depression Hypertension Hyperlipidemia Grandmother Family estrangement Grandfather Family estrangement Brother Asthma Family/Other Bipolar 1 disorder Social History marital status: unmarried,living together number of children: 0 household members: significant other lives independently: Yes pets and animals: No education level: high school occupational status: employed current occupational exposures/hazards: Yes special med needs: No Smoking Status: Former smoker Tobacco: How many years used: 20 second hand exposure: No alcohol intake: former substance use type: does not use and marijuana Smoking Status: Former smoker tobacco type: cigarettes alcohol intake frequency: 0-2 drinks per day Substance Use Type: marijuana Exam Initial Vital Signs Initial Vital Signs: Vital Signs Temperature 98.6 F 06/14/22 08:33 Pulse Rate 88 06/14/22 08:33 Respiratory Rate 24 06/14/22 08:33 Blood Pressure 160/99 H 06/14/22 08:33 Pulse Oximetry 97 06/14/22 08:33 Oxygen Delivery Method 06/14/22 08:33 GENERAL: Alert 27-year-old female appears to not feel well, smells of marijuana in room HEENT: Head atraumatic,EOMI, pupils reactive, face symmetric, moist mucous membranes CARDIOVASCULAR: Regular rate and rhythm without murmurs, rubs or gallops. RESPIRATORY: Coughing with every breath ABDOMEN: Soft, nontender. Normoactive bowel sounds all 4 quadrants. No guarding or rebound. EXTREMITIES: Normal range of motion, no clubbing or edema. Neurovascularly intact NEUROLOGICAL: Alert and oriented x4.Normal gait and speech. Children Teacher strength equal bilaterally moving both lower extremities SKIN: Warm, dry, no laceration, no petechiae, no rashes or lesions. Course Orders Ordered: Discontinued Medications Albuterol/Ipratropium (Albuterol/Ipratropium 3 Ml Ampul) 3 ml INH NOW ONE Stop: 06/14/22 10:51 Last Admin: 06/14/22 10:53 Dose: 3 ml Documented By: STEFFANY Labetalol HCl (Labetalol 100 Mg Tablet) 200 mg PO NOW ONE Stop: 06/14/22 09:32 Last Admin: 06/14/22 09:51 Dose: 200 mg Documented By: NR Vital Signs Vital signs: Vital Signs - 8 hr 06/14/22 11:00 06/14/22 11:00 Pulse Rate 91 H Blood Pressure 143/79 H Pulse Oximetry 100 MDM - Syncope Lab Data Result diagrams: 06/14/22 09:41 06/14/22 09:41 Labs: Lab Results 06/14/22 06/14/22 06/14/22 Range/Units 08:30 09:41 09:41 WBC 7.0 (4.5-11.0) X10^3/uL RBC 5.93 H (4.0-5.2) X10^6/uL Hgb 13.0 (12.0-16.0) g/dL Hct 40.8 (36-46) % MCV 68.8 L (80-100) fL MCH 21.9 L (26-34) PG MCHC 31.8 (30-36) % RDW 15.2 H (11.6-14.8) % Plt Count 143 L (150-400) X10^3/uL Neut % (Auto) 83.6 H (50-75) % Lymph % (Auto) 5.5 L (25-40) % Leake % (Auto) 9.5 (3-14) % Eos % (Auto) 0.2 L (2-4) % Baso % (Auto) 1.2 (0-2) % Neut # (Auto) 5800 (4169-9103) /uL Lymph # (Auto) 400 L (6731-1950) /uL Leake # (Auto) 700 (0-900) /uL Eos # (Auto) 0 (0-450) /uL Baso # (Auto) 100 (0-100) /uL Plt Morphology Comment RBC Morphology See below Microcytosis 2+ H Schistocytes 1+ H Sodium 136 L (137-145) mmol/L Potassium 3.8 (3.4-5.1) mmol/L Chloride 105 (98-107) mmol/L Carbon Dioxide 20 L (22-32) mmol/L BUN 6 L (7-17) mg/dL Creatinine 0.62 (0.52-1.04) mg/dL Estimated GFR > 60 (>60) mL/min BUN/Creatinine Ratio 9.7 (6-22) Glucose 95 (70-100) mg/dL Calcium 8.8 (8.4-10.2) mg/dL Total Bilirubin 0.6 (0.2-1.3) mg/dL AST 19 (14-36) IU/L ALT 17 (<35) IU/L Alkaline Phosphatase 72 (38-126) U/L Total Creatine Kinase 150 H (30-135) U/L CK-MB (CK-2) < 0.22 (<2.37) ng/mL CK-MB (CK-2) Rel Index 0.1 L (1.5-5.0) % Troponin I < 0.012 (0.01-0.034) ng/mL Total Protein 7.8 (6.3-8.2) g/dL Albumin 4.3 (3.5-5.0) g/dL Globulin 3.5 (1.7-4.1) g/dL Albumin/Globulin Ratio 1.2 (1.0-2.8) SARS-CoV-2 (PCR) Negative (Negative) Influenza A (RT-PCR) Flu a positive H (NEGATIVE) Influenza B (RT-PCR) Flu b negative (NEGATIVE) RSV (PCR) Negative (Negative) Imaging Data Chest x-ray: Radiologist's Impression: Signed Patient: Libia Dennis MR#: [id number] : 1995 Acct:[id number] Age/Sex: 27 / F Date of Service: 06/14/22 Loc: ED Accession Number: [id number] ?? Procedure: XR chest 1V Ordering Provider: Rachel Fernandez D.O. PROCEDURE:? XR CHEST 1V ? INDICATIONS:? cough ? TECHNIQUE:? One view of the chest was acquired.? ? COMPARISON:? None. ? FINDINGS:? ? Surgical changes and devices:? None.? ? Lungs and pleura:? Minimal ill-defined airspace opacities of the bilateral lower lungs without focal consolidation.? No pneumothorax or pleural effusion. ? Mediastinum:? Mediastinal contours appear normal.? Heart size is normal.? ? Bones and chest wall:? No suspicious bony lesions.? Overlying soft tissues appear unremarkable.? ? IMPRESSION:? Minimal ill-defined bibasilar airspace opacities which likely represent atelectasis.? Early airspace disease not excluded if clinically appropriate.? No focal consolidation seen. ? ? Dictated by: Lawrence Mak M.D. on 06/14/2022 at 10:14 ? ? Approved by: Lawrence Mak M.D. on 06/14/2022 at 10:15 ? ECG Data Interpretation: Normal sinus rhythm rate 89 MT interval 138 QRS 76 QTC 438 T-wave inversion noted in lead 3 similar to previous EKG no concordant changes no ST elevations no further T-wave inversions MDM Narrative Medical decision making narrative: Patient young 27-year-old female history of hypertension out of her blood pressure medications noted to be hypertensive with a syncopal episode. She had a cough syncopal episode this morning. She woke up and was coughing a lot fell down and hit her head with a very brief loss of consciousness. Not on antiplatelet or anti coagulation. No sign of trauma at this time neurologically intact I do not think she needs a head CT. She has infectious like symptoms she is found to be influenza A positive. Blood work is overall reassuring no sign of end-organ damage. 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 You must fill and take your blood pressure medications. *Continue to take medications as directed Can try Mucinex DM take as directed Albuterol 1-2 puffs as needed for shortness of breath Tylenol 1000 mg every 6 hours if needed for pain or fever Motrin 600 mg every 6 hours if needed for pain or fever *Follow up with your primary care provider in 2-3 days or call [phone] *Return to ER if you should have recurrent episode of passing out, not taking in fluids increasing shortness of breath, chest or any new, worsening or concerning symptoms Prescriptions: New albuterol sulfate 90 mcg/actuation HFA aerosol inhaler 2 puff INHALATION Q4-6H PRN (Reason: shortness of breath or wheezing) Qty: 8.5 0RF No Action labetalol 200 mg tablet 200 mg PO BID Qty: 90 3RF nifedipine 30 mg tablet extended release 60 mg PO DAILY Qty: 90 3RF prenat.vits,paulo,[id number] Tablet 1 tab PO DAILY hydroxyzine pamoate [Vistaril] 25 mg capsule 50 mg PO BEDTIME Referrals: Bowen Medrano MD [Primary Care Provider] - Stand Alone Forms: Work Release Note Visit Report Forms: Patient Portal/API
[2022-06-14] MEDS: LABETALOL 100 MG TABLET 200 MG PO (09:51)
[2022-06-14 09:53] VITALS: PULSE 87; O2SAT 100
[2022-06-14 09:54] VITALS: BP 137/92; PULSE 89; O2SAT 99
[2022-06-14 10:00] VITALS: BP 144/100; PULSE 96; O2SAT 99
[2022-06-14 10:02] LABS: Add Manual Diff / Slide Review NO; Basophils Absolute Auto 100 /uL (0-100); Basophils Percent Auto 1.2 % (0-2); Eosinophils Absolute Auto 0 /uL (0-450); Eosinophils Percent Auto 0.2 % (2-4); Hematocrit 40.8 % (36-46); Lymphocytes Absolute Auto 400 /uL (1100-4500); Lymphocytes Percent Auto 5.5 % (25-40); Mean Corpuscular HGB Conc 31.8 % (30-36); Mean Corpuscular Hemoglobin 21.9 PG (26-34); Mean Corpuscular Volume 68.8 fL (80-100); Monocytes Absolute Auto 700 /uL (0-900); Monocytes Percent Auto 9.5 % (3-14); Neutrophils Absolute Auto 5800 /uL (1500-7000); Neutrophils Percent Auto 83.6 % (50-75); Platelet Count 143 X10^3/uL (150-400); Red Blood Cell Count 5.93 X10^6/uL (4.0-5.2); Red Cell Distribution Width 15.2 % (11.6-14.8)
[2022-06-14 10:15] LABS: Alanine Aminotransferase 17 IU/L (<35); Albumin 4.3 g/dL (3.5-5.0); Albumin Globulin Ratio 1.2 (1.0-2.8); Alkaline Phosphatase 72 U/L (38-126); Aspartate Aminotransferase 19 IU/L (14-36); BUN Creatinine Ratio 9.7 (6-22); Bilirubin Total 0.6 mg/dL (0.2-1.3); Blood Urea Nitrogen 6 mg/dL (7-17); Calcium 8.8 mg/dL (8.4-10.2); Carbon Dioxide 20 mmol/L (22-32); Chloride 105 mmol/L (98-107); Creatine Kinase 150 U/L (30-135); Estimated Glomerular Filt Rate > 60 mL/min (>60); Globulin 3.5 g/dL (1.7-4.1); Glucose 95 mg/dL (70-100); HEMOLYSIS < 15 (0-50); Potassium 3.8 mmol/L (3.4-5.1); Sodium 136 mmol/L (137-145); Total Protein 7.8 g/dL (6.3-8.2)
[2022-06-14 10:26] LABS: Troponin I < 0.012 ng/mL (0.01-0.034)
[2022-06-14 10:27] LABS: COVID-19 CEPHEID 4-PLEX PCR Negative (Negative); Influenza A - CEPHEID Flu A POSITIVE (NEGATIVE); Influenza B - CEPHEID Flu B NEGATIVE (NEGATIVE); Respiratory Syncytial Virus Negative (Negative)
[2022-06-14 10:29] LABS: Microcytosis 2+
[2022-06-14 10:30] VITALS: BP 132/79; PULSE 87; O2SAT 99
[2022-06-14 10:31] LABS: CKMB % Relative Index 0.1 % (1.5-5.0); Creatine Kinase MB < 0.22 ng/mL (<2.37)
[2022-06-14 10:32] LABS: Schistocytes 1+
[2022-06-14] MEDS: ALBUTEROL/IPRATROPIUM 3 ML AMPUL INH (10:53)
[2022-06-14 11:00] VITALS: BP 143/79; PULSE 91; O2SAT 100
== END 2022-06-14 11:32 | disposition home or self-care (01) ==
PROVIDERS: Emergency Provider Emergency Medicine; PCP Family Medicine
DX: I10 Essential (primary) hypertension (principal); J10.1 Influenza due to other identified influenza virus with other respiratory manifestations; R55 Syncope and collapse; Z87.891 Personal history of nicotine dependence
CPT/HCPCS: 0241U; 36415; 71045; 80053; 82550; 82553; 84484; 85025; 93005; 99284

== ENCOUNTER → 2023-01-25 10:28 | Outpatient (CLI) | payer OTHER, MEDICAID, SELFPAY ==
--- NOTE | 2023-01-25 10:31 | DI.RAD.S_ITS ---
PROCEDURE: XR LUMBAR SPINE 2-3V INDICATIONS: chronic low back pain, right>left TECHNIQUE: 3 views of the lumbar spine were acquired. COMPARISON: None. FINDINGS: Bones: 5 [id number] vertebrae are present. There is unremarkable bony alignment. No vertebral body compression fractures. No suspicious bony lesions. Minimal disc height loss L5-S1. Soft tissues: Overlying bowel gas pattern is normal. No suspicious soft tissue calcifications. IMPRESSION: No lumbar vertebral body compression fractures identified. Minimal degenerative changes at L5-S1. If symptoms persist, follow-up radiographs and/or CT or MRI may be helpful for further evaluation. Dictated by: Adiel Brady M.D. on 01/25/2023 at 17:39 Approved by: Adiel Brady M.D. on 01/25/2023 at 17:41
[2023-01-25 15:58] LABS: Appearance Urine UA SL CLOUDY; Bilirubin Urine UA NEGATIVE (NEGATIVE); Color Urine UA YELLOW; Glucose Urine UA NEGATIVE (Negative); Ketones Urine UA NEGATIVE (NEGATIVE); Leukocyte Esterase Urine UA NEGATIVE (NEGATIVE); Nitrite Urine UA NEGATIVE (Negative); Occult Blood Urine UA NEGATIVE (Negative); Protein Urine UA NEGATIVE (Negative); Specific Gravity Urine UA 1.025 (1.000-1.035)
[2023-01-25 16:13] LABS: Bacteria Urine Few (2-10); Culture Indicated Urine Cult Not Indicated; RBC Urine 0-1/HPF (0-5/HPF); Squamous Epithelial Cell Urine 1-5 /HPF (0-5/HPF); WBC Urine None Seen (0-5/HPF)
[2023-02-02 16:37] LABS: HLA B27 Negative (.)
== END ==
PROVIDERS: PCP Family Medicine; Referring Provider Family Medicine; Visit Provider Family Medicine
DX: M32.9 Systemic lupus erythematosus, unspecified (principal); M54.9 Dorsalgia, unspecified
CPT/HCPCS: 36415; 72100; 81001; 81374

== ENCOUNTER 2023-07-28 09:00 | Emergency (ER) | payer OTHER, MEDICAID, SELFPAY ==
[2023-07-28] VITALS (8 sets, daily range): BP systolic 138–168; BP diastolic 80–91; PULSE 67–83; RESP 13–35; TEMP 36.7; O2SAT 97–100; BMI 27.3
--- NOTE | 2023-07-28 09:09 | DI.RAD.S_ITS ---
PROCEDURE: XR CHEST 1V INDICATIONS: chest pain TECHNIQUE: One view of the chest was acquired. COMPARISON: [facility], CR, XR CHEST 1V, 06/14/2022, 9:53. FINDINGS: Surgical changes and devices: None. Lungs and pleura: Lungs are clear. No pleural effusions or pneumothorax. Mediastinum: Mediastinal contours appear normal. Heart size is normal. Bones and chest wall: No suspicious bony lesions. Overlying soft tissues appear unremarkable. IMPRESSION: No acute cardiopulmonary abnormality is seen. Dictated by: Cynthia Fernandez M.D. on 07/28/2023 at 9:25 Approved by: Cynthia Fernandez M.D. on 07/28/2023 at 9:26
--- NOTE | 2023-07-28 09:21 | ED.CHESTPAIN ---
HPI - Chest Pain General Chief Complaint: Chest Pain Stated Complaint: sharp chest pain/kidneys,disoriented Time Seen by Provider: 07/28/23 09:07 Source: patient Mode of arrival: Ambulatory Limitations: no limitations History of Present Illness HPI narrative: Patient is a 28-year-old female who is here for evaluation of 4 days of chest discomfort. She states that it feels like someone is sitting on her chest. She also feels like it is hard for her to breathe. She is also having left-sided flank pain. She has had multiple kidney stones in the past. States it feels like a kidney stone but has not moved. She has had to have them surgically removed in the past. No urinary symptoms. No change in bowel habits. No fevers or vomiting. Related Data Home Medications Medication Instructions Recorded Confirmed nortriptyline 50 mg capsule 50 mg PO BEDTIME 01/25/23 01/25/23 Previous Rx's Medication Instructions Recorded albuterol sulfate 90 mcg/actuation 2 puff inhalation Q4-6H PRN 06/14/22 aerosol inhaler shortness of breath or wheezing #8.5 grams labetalol 200 mg tablet 200 mg PO BID #90 tabs 01/10/23 nifedipine 30 mg tablet,extended 60 mg (2 x 30 mg) PO DAILY #90 tabs 01/14/23 release Allergies Allergy/AdvReac Type Severity Reaction Status Date / Time banana Allergy Severe Swelling Verified 01/25/23 10:04 to throat - extreme venom-honey bee Allergy Severe Swelling Verified 01/25/23 10:04 and SOB diphenhydramine Allergy Intermediate Itchy Verified 01/25/23 10:04 [From Benadryl Allergy] feeling to throat : makes me freak out Review of Systems Review of Systems ROS Unobtainable: All systems reviewed & are unremarkable except as noted in HPI and below Constitutional Constitutional: Reports system reviewed and no additional complaints, except as documented Patient History Medical History Mixed anxiety depressive disorder Eczema (~2004) Acne (~2006) Allergies (~2001) History of bipolar disorder (~2008) Headache (~1998) Autism (~2015) ADHD (~2011) Shoulder pain (~2007) Foot pain (~2006) Chronic back pain (~2006) Carpal tunnel syndrome (~2011) Ankle pain (~2006) Anemia (~2002) Vertigo (~2013) Partial blindness (~2009) Painful menstrual periods (~2006) Heavy menstrual period (~2004) Hypertension (~2017) Smoker Marijuana use in remission (~05/2020) Joint pain (~2000) Fatigue Aspergers' syndrome Disordered eating Pneumonia Asthma (~2005) Social anxiety disorder (~1997) Depression (~2000) Anxiety (~1997) PTSD (post-traumatic stress disorder) (~2005) Syncopal episodes (~2018) History of being hospitalized (~2009) Finger fracture, left (~2007) Ankle fracture (~2004) Seizure (~2020) Migraine (~1998) History of lumbar puncture (~2011) Kidney stones (~2013) Lupus (~2000) Surgical History Anesthesia H/O dilation and curettage (~2009) S/P tonsillectomy and adenoidectomy (~1999) Status post laser lithotripsy of ureteral calculus (~2013) Surgical procedure planned Family History Mother Respiratory abnormalities Asthma History of prediabetes Bipolar 1 disorder Diabetes mellitus History of heart disease Mental health problem Father Family estrangement PTSD (post-traumatic stress disorder) Hypertension Mental health problem Grandmother Respiratory abnormalities Grandfather Stroke Rib fracture History of prediabetes High blood sugar Heart palpitations Alcohol addiction Depression Hypertension Hyperlipidemia Grandmother Family estrangement Grandfather Family estrangement Brother Asthma Family/Other Bipolar 1 disorder Social History marital status: unmarried,living together number of children: 0 household members: significant other lives independently: Yes pets and animals: No education level: high school occupational status: employed current occupational exposures/hazards: Yes special med needs: No Smoking Status: Former smoker Tobacco: How many years used: 20 second hand exposure: No alcohol intake: former substance use type: does not use and marijuana Smoking Status: Former smoker tobacco type: cigarettes alcohol intake frequency: 0-2 drinks per day Substance Use Type: marijuana Exam Initial Vital Signs Initial Vital Signs: Vital Signs Pulse Rate 83 07/28/23 09:07 Respiratory Rate 19 07/28/23 09:07 Const General: cooperative, comfortable and No ill appearing HENMT Head: normal to inspection and normocephalic Resp Effort & Inspection: normal respiratory effort Auscultation: clear to auscultation bilaterally Cardio Rate: regular rate Rhythm: regular rhythm GI Inspection: normal to inspection and non-distended Back/Spine/Pelvis Back: CVA tenderness left Skin General: no rashes or lesions noted Neuro General: patient alert, patient awake and moves all extremities Extrem General: No edema Course Orders Ordered: ED Orders 07/28/23 09:09 XR chest 1V Stat EKG-12 Lead Stat 07/28/23 09:37 Complete Blood Count AUTO DIFF Stat Comprehensive Metabolic Panel Stat Lipase Stat Troponin & CK Cardiac Panel Stat 07/28/23 09:57 HCG Quantitative /Beta subunit Stat 07/28/23 10:00 CT kidney ureter bladder (KUB) Stat Discontinued Medications Ondansetron HCl (Ondansetron 4 Mg/2 Ml Inj) 4 mg IV NOW ONE Stop: 07/28/23 10:20 Last Admin: 07/28/23 10:33 Dose: 4 mg Documented By: MS Vital Signs Vital signs: Vital Signs - 8 hr 07/28/23 09:07 07/28/23 09:08 07/28/23 09:08 Temperature Pulse Rate 83 78 Respiratory Rate 19 20 Blood Pressure 168/89 H Pulse Oximetry 99 Oxygen Delivery Method 07/28/23 09:09 Temperature 98.1 F Pulse Rate 79 Respiratory Rate 16 Blood Pressure 168/89 H Pulse Oximetry 97 Oxygen Delivery Method Room Air MDM - Chest Pain Lab Data Attestation: I reviewed the patient's lab results. 07/28/23 09:37 07/28/23 09:37 Labs: Lab Results 07/28/23 07/28/23 Range/Units 09:37 09:57 WBC 9.9 (4.5-11.0) X10^3/uL RBC 5.92 H (4.0-5.2) X10^6/uL Hgb 13.6 (12.0-16.0) g/dL Hct 42.1 (36-46) % MCV 71.2 L (80-100) fL MCH 23.0 L (26-34) PG MCHC 32.3 (30-36) % RDW 15.0 H (11.6-14.8) % Plt Count 197 (150-400) X10^3/uL Neut % (Auto) 59.0 (50-75) % Lymph % (Auto) 26.5 (25-40) % [place] % (Auto) 8.2 (3-14) % Eos % (Auto) 5.2 H (2-4) % Baso % (Auto) 1.1 (0-2) % Neut # (Auto) 5800 (9843-7218) /uL Lymph # (Auto) 2600 (0690-1333) /uL [place] # (Auto) 800 (0-900) /uL Eos # (Auto) 500 H (0-450) /uL Baso # (Auto) 100 (0-100) /uL RBC Morphology See below Hypochromasia 1+ H Microcytosis 1+ H Sodium 137 (137-145) mmol/L Potassium 4.2 (3.4-5.1) mmol/L Chloride 107 (98-107) mmol/L Carbon Dioxide 25 (22-32) mmol/L BUN 11 (7-17) mg/dL Creatinine 0.71 (0.52-1.04) mg/dL Estimated GFR > 60 (>60) mL/min BUN/Creatinine Ratio 15.5 (6-22) Glucose 92 (70-100) mg/dL Calcium 9.6 (8.4-10.2) mg/dL Total Bilirubin 0.7 (0.2-1.3) mg/dL AST 26 (14-36) IU/L ALT 18 (<35) IU/L Alkaline Phosphatase 55 (38-126) U/L Total Creatine Kinase 101 (30-135) U/L Troponin I < 0.012 (0.01-0.034) ng/mL Total Protein 7.7 (6.3-8.2) g/dL Albumin 4.3 (3.5-5.0) g/dL Globulin 3.4 (1.7-4.1) g/dL Albumin/Globulin Ratio 1.3 (1.0-2.8) Lipase 59 (23-300) U/L HCG, Quant < 2.4 mIU/mL Point of Care Testing Test Results Negative Urine Dip Bedside Urine Glucose 250 mg/dl Bedside Urine Bilirubin - Negative Bedside Urine Ketone - Negative Urine Specific [place] 1.025 Bedside Urine Occult Blood - Negative Bedside Urine pH 6 Bedside Urine Protein - Negative Bedside Urine Urobilinogen - Negative Bedside Urine Nitrite - Negative Bedside Urine Leukocytes - Negative Esterase Imaging Data Chest x-ray: Radiologist's Impression: PROCEDURE: XR CHEST 1V INDICATIONS: chest pain TECHNIQUE: One view of the chest was acquired. COMPARISON: [facility], , XR CHEST 1V, 06/14/2022, 9:53. FINDINGS: Surgical changes and devices: None. Lungs and pleura: Lungs are clear. No pleural effusions or pneumothorax. Mediastinum: Mediastinal contours appear normal. Heart size is normal. Bones and chest wall: No suspicious bony lesions. Overlying soft tissues appear unremarkable. IMPRESSION: No acute cardiopulmonary abnormality is seen. CT scan - abdomen/pelvis: Radiologist's Impression: PROCEDURE: CT KIDNEY URETER BLADDER (KUB) INDICATIONS: L side flank pain eval for stone TECHNIQUE: Axial sections were acquired from the lung bases to the pubic symphysis. Coronal and sagittal reformats were performed. For radiation dose reduction, the following was used: automated exposure control, adjustment of mA and/or kV according to patient size. COMPARISON: None. FINDINGS: Image quality: Diagnostic. Lower Chest: No significant findings. URINARY: Right Kidney: No stones or hydronephrosis. Right Ureter: No hydroureter. Left Kidney: No stones or hydronephrosis. Left Ureter: No hydroureter. Bladder: Normal wall thickness. No stones. ABDOMEN: Liver: No contour-deforming solid mass. Gallbladder: No radiopaque gallstones or wall thickening. Biliary ducts: No biliary dilation. Pancreas: No ductal dilation. Spleen: Size is within normal limits. Adrenal Glands: No adrenal nodules. Stomach and Bowel: Normal colonic caliber, without significant wall thickening. The appendix is not visualized; however there is no discrete right lower quadrant fluid or fat stranding to suggest acute appendicitis. Peritoneum: No abnormal intraperitoneal fluid. No free air. Ventral Wall: No hernia. Abdominal Nodes: No enlarged retroperitoneal or mesenteric lymph nodes. Vessels: Aorta and inferior vena cava are normal in size. PELVIS: Pelvic Organs: Unremarkable. There are likely bilateral follicular ovarian cysts which are poorly characterized in the absence of contrast. Pelvic Nodes: Unremarkable. Miscellaneous: No inguinal hernias are seen. Bones: Unremarkable. IMPRESSION: 1. No hydronephrosis, nephrolithiasis, hydroureter, or ureterolithiasis. 2. No acute intra-abdominal findings. The appendix is not visualized; however there are no ancillary findings to suggest acute appendicitis. ECG Data Attestation: I personally reviewed and interpreted this ECG as follows: Interpretation: Sinus rhythm Ventricular rate is 62 Normal axis Normal QRS Normal QTC No ST T wave changes MDM Narrative Medical decision making narrative: Workup here in the emergency department is unremarkable. Her CT scan shows no signs of renal stones, appendicitis, bowel obstruction. No indication for surgical consultation. Chest x-ray shows no signs of pneumonia. EKG is unremarkable. Low suspicion for ACS. Had a discussion with the patient regarding her symptoms. She understands that we do not have a definitive diagnosis but we can tell her what we have evaluated for and what is negative. She expressed understanding and agreement to this. We will hold on further workup for now. No indication for admission to the hospital. Will discharge home with return precautions. She expressed understanding and agreement. Discharge Plan Departure Patient Disposition: Home Clinical Impression: Abdominal pain, Atypical chest pain Instructions: DI for Abdominal Pain-Adult, DI for Atypical Chest Pain Activity Restrictions/Additional Instructions: Recommend that you contact your primary care doctor for follow-up. If your symptoms worsen or you develop new symptoms please return to the emergency department for further evaluation. Prescriptions: No Action labetalol 200 mg tablet 200 mg PO BID Qty: 90 3RF nifedipine 30 mg tablet extended release 60 mg PO DAILY Qty: 90 3RF nortriptyline 50 mg capsule 50 mg PO BEDTIME albuterol sulfate 90 mcg/actuation HFA aerosol inhaler 2 puff INHALATION Q4-6H PRN (Reason: shortness of breath or wheezing) Qty: 8.5 0RF Referrals: Bowen Medrano MD [Primary Care Provider] - Stand Alone Forms: Patient Portal/API
[2023-07-28 09:46] LABS: Alanine Aminotransferase 18 IU/L (<35); Albumin 4.3 g/dL (3.5-5.0); Albumin Globulin Ratio 1.3 (1.0-2.8); Alkaline Phosphatase 55 U/L (38-126); Aspartate Aminotransferase 26 IU/L (14-36); BUN Creatinine Ratio 15.5 (6-22); Bilirubin Total 0.7 mg/dL (0.2-1.3); Blood Urea Nitrogen 11 mg/dL (7-17); Calcium 9.6 mg/dL (8.4-10.2); Carbon Dioxide 25 mmol/L (22-32); Chloride 107 mmol/L (98-107); Creatine Kinase 101 U/L (30-135); Estimated Glomerular Filt Rate > 60 mL/min (>60); Globulin 3.4 g/dL (1.7-4.1); Glucose 92 mg/dL (70-100); HEMOLYSIS < 15 (0-50); Lipase 59 U/L (23-300); Potassium 4.2 mmol/L (3.4-5.1); Sodium 137 mmol/L (137-145); Total Protein 7.7 g/dL (6.3-8.2)
[2023-07-28 09:48] LABS: Add Manual Diff / Slide Review SLIDE REVIEW; Basophils Absolute Auto 100 /uL (0-100); Basophils Percent Auto 1.1 % (0-2); Eosinophils Absolute Auto 500 /uL (0-450); Eosinophils Percent Auto 5.2 % (2-4); Hematocrit 42.1 % (36-46); Hemoglobin 13.6 g/dL (12.0-16.0); Lymphocytes Absolute Auto 2600 /uL (1100-4500); Lymphocytes Percent Auto 26.5 % (25-40); Mean Corpuscular HGB Conc 32.3 % (30-36); Mean Corpuscular Volume 71.2 fL (80-100); Monocytes Absolute Auto 800 /uL (0-900); Monocytes Percent Auto 8.2 % (3-14); Neutrophils Absolute Auto 5800 /uL (1500-7000); Platelet Count 197 X10^3/uL (150-400); Red Blood Cell Count 5.92 X10^6/uL (4.0-5.2); White Blood Cell Count 9.9 X10^3/uL (4.5-11.0)
[2023-07-28 09:57] LABS: Troponin I < 0.012 ng/mL (0.01-0.034)
--- NOTE | 2023-07-28 10:00 | DI.CT.S_ITS ---
PROCEDURE: CT KIDNEY URETER BLADDER (KUB) INDICATIONS: L side flank pain eval for stone TECHNIQUE: Axial sections were acquired from the lung bases to the pubic symphysis. Coronal and sagittal reformats were performed. For radiation dose reduction, the following was used: automated exposure control, adjustment of mA and/or kV according to patient size. COMPARISON: None. FINDINGS: Image quality: Diagnostic. Lower Chest: No significant findings. URINARY: Right Kidney: No stones or hydronephrosis. Right Ureter: No hydroureter. Left Kidney: No stones or hydronephrosis. Left Ureter: No hydroureter. Bladder: Normal wall thickness. No stones. ABDOMEN: Liver: No contour-deforming solid mass. Gallbladder: No radiopaque gallstones or wall thickening. Biliary ducts: No biliary dilation. Pancreas: No ductal dilation. Spleen: Size is within normal limits. Adrenal Glands: No adrenal nodules. Stomach and Bowel: Normal colonic caliber, without significant wall thickening. The appendix is not visualized; however there is no discrete right lower quadrant fluid or fat stranding to suggest acute appendicitis. Peritoneum: No abnormal intraperitoneal fluid. No free air. Ventral Wall: No hernia. Abdominal Nodes: No enlarged retroperitoneal or mesenteric lymph nodes. Vessels: Aorta and inferior vena cava are normal in size. PELVIS: Pelvic Organs: Unremarkable. There are likely bilateral follicular ovarian cysts which are poorly characterized in the absence of contrast. Pelvic Nodes: Unremarkable. Miscellaneous: No inguinal hernias are seen. Bones: Unremarkable. IMPRESSION: 1. No hydronephrosis, nephrolithiasis, hydroureter, or ureterolithiasis. 2. No acute intra-abdominal findings. The appendix is not visualized; however there are no ancillary findings to suggest acute appendicitis. Dictated by: Nyasia Parish M.D. on 07/28/2023 at 10:18 Approved by: Nyasia Parish M.D. on 07/28/2023 at 10:22
[2023-07-28 10:20] LABS: Hypochromasia 1+; Microcytosis 1+
[2023-07-28] MEDS: ONDANSETRON 4 MG/2 ML INJ IV (10:33)
[2023-07-28 10:39] LABS: HCG Quantitative /Beta subunit < 2.4 mIU/mL
== END 2023-07-28 11:25 | disposition home or self-care (01) ==
PROVIDERS: Emergency Provider Emergency Medicine; PCP Family Medicine
DX: R10.9 Unspecified abdominal pain (principal); R07.89 Other chest pain
CPT/HCPCS: 71045; 74176; 80053; 81003; 81025; 82550; 83690; 84484; 84702; 85025; 93005; 96374; 99284; J2405

== ENCOUNTER 2024-02-09 12:31 | Emergency (ER) | payer OTHER, MEDICAID, SELFPAY ==
[2024-02-09 12:33] VITALS: BP 178/105; PULSE 62; RESP 16; TEMP 36.9; O2SAT 100; BMI 28.1
--- NOTE | 2024-02-09 13:01 | ED.WEAKNESS ---
HPI - Weakness General Chief complaint: Weakness Stated complaint: lupus flare up Time Seen by Provider: 02/09/24 12:54 Source: patient Mode of arrival: Ambulatory History of Present Illness HPI Narrative: Patient here with . Has history of lupus. Has been in remission since 2017. Has not been on any maintenance medications. 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 In the past week has felt tired fatigued some body aches. Decreased appetite. Her typical flare-up type of symptoms. She had been monitoring it. However yesterday she decided to work hard in the house with cleaning and overdid herself. She usually gets Solu-Medrol as well as a Medrol Dosepak when she does have visits to the ER for flare-ups. No cough cold or congestion fever chills. No urinary complaints.. Patient in no distress. Up and walking without assist. at bedside. Not toxic or dyspneic. Related Data Home Medications Medication Instructions Recorded Confirmed nortriptyline 50 mg capsule 50 mg PO BEDTIME 01/25/23 01/25/23 Previous Rx's Medication Instructions Recorded albuterol sulfate 90 mcg/actuation 2 puff inhalation Q4-6H PRN 06/14/22 aerosol inhaler shortness of breath or wheezing #8.5 grams labetalol 200 mg tablet 200 mg PO BID #90 tabs 01/10/23 nifedipine 30 mg tablet,extended 60 mg (2 x 30 mg) PO DAILY #90 tabs 01/14/23 release methylprednisolone 4 mg tablets in See Rx Instructions PO PER PKG DIR 10/29/23 a dose pack (Medrol (Shaun)) #21 ea cephalexin 500 mg capsule 500 mg PO TID #15 caps 02/09/24 methylprednisolone 4 mg tablets in See Rx Instructions PO .COMPLEX 02/09/24 a dose pack (Medrol (Shaun)) #21 ea Allergies Allergy/AdvReac Type Severity Reaction Status Date / Time banana Allergy Severe Swelling Verified 01/25/23 10:04 to throat - extreme venom-honey bee Allergy Severe Swelling Verified 01/25/23 10:04 and SOB diphenhydramine Allergy Intermediate Itchy Verified 01/25/23 10:04 [From Benadryl Allergy] feeling to throat : makes me freak out Review of Systems Review of Systems Narrative: GENERAL: negative chills, positive fatigue, malaise, positive fever, sweats. HEENT: negative sinus pain, ear pain, sore throat RESPIRATORY: negative dyspnea, cough CARDIOVASCULAR: negative chest pain, palpitations GASTROINTESTINAL: negative nausea, vomiting, abdominal pain : Positive dysuria, frequency, negative hematuria MUSCULOSKELETAL: negative muscle or bony pain SKIN: negative rash, skin lesions NEUROLOGIC: negative weakness, numbness Patient History Medical History Mixed anxiety depressive disorder Eczema (~2004) Acne (~2006) Allergies (~2001) History of bipolar disorder (~2008) Headache (~1998) Autism (~2015) ADHD (~2011) Shoulder pain (~2007) Foot pain (~2006) Chronic back pain (~2006) Carpal tunnel syndrome (~2011) Ankle pain (~2006) Anemia (~2002) Vertigo (~2013) Partial blindness (~2009) Painful menstrual periods (~2006) Heavy menstrual period (~2004) Hypertension (~2017) Smoker Marijuana use in remission (~05/2020) Joint pain (~2000) Fatigue Aspergers' syndrome Disordered eating Pneumonia Asthma (~2005) Social anxiety disorder (~1997) Depression (~2000) Anxiety (~1997) PTSD (post-traumatic stress disorder) (~2005) Syncopal episodes (~2018) History of being hospitalized (~2009) Finger fracture, left (~2007) Ankle fracture (~2004) Seizure (~2020) Migraine (~1998) History of lumbar puncture (~2011) Kidney stones (~2013) Lupus (~2000) Surgical History Anesthesia H/O dilation and curettage (~2009) S/P tonsillectomy and adenoidectomy (~1999) Status post laser lithotripsy of ureteral calculus (~2013) Surgical procedure planned Family History Mother Respiratory abnormalities Asthma History of prediabetes Bipolar 1 disorder Diabetes mellitus History of heart disease Mental health problem Father Family estrangement PTSD (post-traumatic stress disorder) Hypertension Mental health problem Grandmother Respiratory abnormalities Grandfather Stroke Rib fracture History of prediabetes High blood sugar Heart palpitations Alcohol addiction Depression Hypertension Hyperlipidemia Grandmother Family estrangement Grandfather Family estrangement Brother Asthma Family/Other Bipolar 1 disorder Social History marital status: unmarried,living together number of children: 0 household members: significant other lives independently: Yes pets and animals: No education level: high school occupational status: employed current occupational exposures/hazards: Yes special med needs: No Smoking Status: Current some day smoker Tobacco: How many years used: 20 second hand exposure: No alcohol intake: former substance use type: does not use and marijuana Smoking Status: Current some day smoker tobacco type: cigarettes alcohol intake frequency: 0-2 drinks per day Substance Use Type: marijuana Exam Narrative Exam Narrative: GENERAL: in no distress, not toxic not dyspneic HEAD: Normocephalic. EYES: Pupils equal round ENT: Mucous membranes moist. NECK: Trachea midline. CARDIOVASCULAR: Regular rate and rhythm RESPIRATORY: Clear to auscultation. Breath sounds equal bilaterally. No wheezes, rales, or rhonchi. GASTROINTESTINAL: Abdomen soft, non-tender no peritoneal signs. No CVA tenderness. Bowel sounds are present. EXTREMITIES: No gross deformities. BACK: No flank tenderness. NEURO: AOx4. Clear speech. Steady self gait in hallway to her room. No ataxia. SKIN: Warm and dry PSYCH: Not anxious, is cooperative Initial Vital Signs Initial Vital Signs: Vital Signs Temperature 98.5 F 02/09/24 12:33 Pulse Rate 62 02/09/24 12:33 Respiratory Rate 16 02/09/24 12:33 Blood Pressure 178/105 H 02/09/24 12:33 Pulse Oximetry 100 02/09/24 12:33 Oxygen Delivery Method Room Air 02/09/24 12:33 Course Orders Ordered: Discontinued Medications Cephalexin HCl (Cephalexin 250 Mg Capsule) 500 mg PO NOW ONE Stop: 02/09/24 14:22 Last Admin: 02/09/24 14:28 Dose: 500 mg Documented By: RAO Sodium Chloride (Normal Saline 0.9%) 1,000 mls @ 1,000 mls/hr IV BOLUS ONE Stop: 02/09/24 13:59 Last Infusion: 02/09/24 14:27 Dose: Infused Documented By: Admin: 02/09/24 13:27 Dose: 1,000 mls/hr Documented By: JOSEPH Methylprednisolone (Methylprednisolone 125 Mg/2 Ml Vial) 125 mg IV NOW ONE Stop: 02/09/24 13:01 Last Admin: 02/09/24 13:27 Dose: 125 mg Documented By: JOSEPH Vital Signs Vital signs: Vital Signs - 8 hr 02/09/24 12:33 Temperature 98.5 F Pulse Rate 62 Respiratory Rate 16 Blood Pressure 178/105 H Pulse Oximetry 100 Oxygen Delivery Method Room Air MDM - Weakness Lab Data 02/09/24 13:15 02/09/24 13:15 Labs: Lab Results 02/09/24 Range/Units 13:15 WBC 8.7 (4.5-11.0) X10^3/uL RBC 5.39 H (4.0-5.2) X10^6/uL Hgb 12.5 (12.0-16.0) g/dL Hct 38.7 (36-46) % MCV 71.8 L (80-100) fL MCH 23.2 L (26-34) PG MCHC 32.3 (30-36) % RDW 14.8 (11.6-14.8) % Plt Count 167 (150-400) X10^3/uL Neut % (Auto) 56.1 (50-75) % Lymph % (Auto) 28.5 (25-40) % [place] % (Auto) 8.7 (3-14) % Eos % (Auto) 5.2 H (2-4) % Baso % (Auto) 1.5 (0-2) % Neut # (Auto) 4900 (6007-7055) /uL Lymph # (Auto) 2500 (7850-6569) /uL [place] # (Auto) 800 (0-900) /uL Eos # (Auto) 500 H (0-450) /uL Baso # (Auto) 100 (0-100) /uL Sodium 138 (137-145) mmol/L Potassium 3.9 (3.4-5.1) mmol/L Chloride 110 H (98-107) mmol/L Carbon Dioxide 21 L (22-32) mmol/L BUN 10 (7-17) mg/dL Creatinine 0.80 (0.52-1.04) mg/dL Estimated GFR > 60 (>60) mL/min BUN/Creatinine Ratio 12.5 (6-22) Glucose 92 (70-100) mg/dL Calcium 9.1 (8.4-10.2) mg/dL Total Bilirubin 0.5 (0.2-1.3) mg/dL AST 18 (14-36) IU/L ALT 12 (<35) IU/L Alkaline Phosphatase 62 (38-126) U/L Total Protein 6.7 (6.3-8.2) g/dL Albumin 4.0 (3.5-5.0) g/dL Globulin 2.7 (1.7-4.1) g/dL Albumin/Globulin Ratio 1.5 (1.0-2.8) Point of Care Testing Test Results Negative Urine Dip Bedside Urine Glucose Negative Bedside Urine Bilirubin - Negative Bedside Urine Ketone - Negative Urine Specific Kim 1.015 Bedside Urine Occult Blood +++ Bedside Urine pH 6.5 Bedside Urine Protein - Negative Bedside Urine Urobilinogen - Negative Bedside Urine Nitrite - Negative Bedside Urine Leukocytes +/- 15 Esterase [facility] Narrative Medical decision making narrative: Patient here with . Has history of lupus. Has been in remission since 2017. Has not been on any maintenance medications. 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 In the past week has felt tired fatigued some body aches. Decreased appetite. Her typical flare-up type of symptoms. She had been monitoring it. However yesterday she decided to work hard in the house with cleaning and overdid herself. She usually gets Solu-Medrol as well as a Medrol Dosepak when she does have visits to the ER for flare-ups. No cough cold or congestion fever chills. No urinary complaints.. Patient in no distress. Up and walking without assist. at bedside. Not toxic or dyspneic. 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 [facility] Medical records reviewed: Office visit December 10, 2022, was seen by nurse practitioner Suri Márquez, was given referral to Rheumatology Differential considered: Includes but not limited to UTI, exacerbation of lupus, dehydration, fatigue Lab Test results independently reviewed as above. Pertinent findings: POC urinalysis positive leukocytes esterase. Negative nitrite, POC negative WBC 8.7 hemoglobin 12.5 sodium 138 potassium 3.9 bicarb 21 BUN 10 creatinine 0.8 AST 18 ALT 12 Imaging studies independently reviewed: None indicated at this time Consultations: None indicated at this time Treatments: Solu-Medrol normal saline Keflex Re-evaluations: 2:22 p.m.. Patient is starting to feel better with IV fluids. And Solu-Medrol. She does agree treatment for Keflex for UTI, she suspected she may have a UTI. She desires discharge home after Keflex. is bedside. Work note provided. Prescriptions provided. She has primary care to follow up with. Not toxic at discharge. She desires discharge home. Return precautions reviewed Discussion: Appropriate for discharge home. Keflex given for UTI, Solu-Medrol and IV fluids given. Patient feeling better. Prescriptions provided. Work note provided. Return precautions reviewed. Not toxic or dyspneic at discharge. She desires discharge home. Diagnosis: Lupus exacerbation/acute UTI Discharge Plan Departure Patient Disposition: Home Clinical Impression: Acute urinary tract infection, Exacerbation of systemic lupus Instructions: DI for Urinary Tract Infection (UTI), DI for Systemic Lupus Erythematosus Activity Restrictions/Additional Instructions: Your exam and laboratory studies are reassuring. You are being treated for urinary tract infection. Please filler picker and continue antibiotic from the pharmacy. First dose was given here. Steroid pack is prescribed as well, please continue this tomorrow. Keep well hydrated. See family doctor within a week for re-evaluation. Return if worse if any questions or concerns. Work note has been provided for you. Prescriptions: New cephalexin 500 mg capsule 500 mg PO TID Qty: 15 0RF methylprednisolone [Medrol (Shaun)] 4 mg tablets,dose pack See Rx Instructions .ROUTE .COMPLEX Qty: 21 0RF Rx Instructions: orally per package directions No Action labetalol 200 mg tablet 200 mg PO BID Qty: 90 3RF nifedipine 30 mg tablet extended release 60 mg PO DAILY Qty: 90 3RF methylprednisolone [Medrol (Shaun)] 4 mg tablets,dose pack See Rx Instructions PO PER PKG DIR Qty: 21 0RF Rx Instructions: PO PER PKG DIR for 6 days nortriptyline 50 mg capsule 50 mg PO BEDTIME albuterol sulfate 90 mcg/actuation HFA aerosol inhaler 2 puff INHALATION Q4-6H PRN (Reason: shortness of breath or wheezing) Qty: 8.5 0RF Referrals: Bowen Medrano MD [Primary Care Provider] - Stand Alone Forms: Patient Portal/API, Work Release Note
[2024-02-09] MEDS: SODIUM CHLORIDE 0.9% 1,000 ML 1000 ML IV (13:27)
[2024-02-09] MEDS: methylPREDNISolone 125 MG/2 ML VIAL IV (13:27)
[2024-02-09 13:35] LABS: Add Manual Diff / Slide Review NO; Basophils Absolute Auto 100 /uL (0-100); Basophils Percent Auto 1.5 % (0-2); Eosinophils Absolute Auto 500 /uL (0-450); Eosinophils Percent Auto 5.2 % (2-4); Hematocrit 38.7 % (36-46); Hemoglobin 12.5 g/dL (12.0-16.0); Lymphocytes Absolute Auto 2500 /uL (1100-4500); Lymphocytes Percent Auto 28.5 % (25-40); Mean Corpuscular HGB Conc 32.3 % (30-36); Mean Corpuscular Hemoglobin 23.2 PG (26-34); Mean Corpuscular Volume 71.8 fL (80-100); Monocytes Absolute Auto 800 /uL (0-900); Monocytes Percent Auto 8.7 % (3-14); Neutrophils Absolute Auto 4900 /uL (1500-7000); Neutrophils Percent Auto 56.1 % (50-75); Platelet Count 167 X10^3/uL (150-400); Red Blood Cell Count 5.39 X10^6/uL (4.0-5.2); Red Cell Distribution Width 14.8 % (11.6-14.8); White Blood Cell Count 8.7 X10^3/uL (4.5-11.0)
[2024-02-09 13:49] LABS: Alanine Aminotransferase 12 IU/L (<35); Albumin Globulin Ratio 1.5 (1.0-2.8); Alkaline Phosphatase 62 U/L (38-126); Aspartate Aminotransferase 18 IU/L (14-36); BUN Creatinine Ratio 12.5 (6-22); Bilirubin Total 0.5 mg/dL (0.2-1.3); Blood Urea Nitrogen 10 mg/dL (7-17); Calcium 9.1 mg/dL (8.4-10.2); Carbon Dioxide 21 mmol/L (22-32); Chloride 110 mmol/L (98-107); Estimated Glomerular Filt Rate > 60 mL/min (>60); Globulin 2.7 g/dL (1.7-4.1); Glucose 92 mg/dL (70-100); HEMOLYSIS < 15 (0-50); Potassium 3.9 mmol/L (3.4-5.1); Sodium 138 mmol/L (137-145); Total Protein 6.7 g/dL (6.3-8.2)
[2024-02-09] MEDS: cephALEXin 250 MG CAPSULE 500 MG PO (14:28)
[2024-02-09 15:00] VITALS: BP 136/86; PULSE 79; RESP 16; O2SAT 100
== END 2024-02-09 15:01 | disposition home or self-care (01) ==
PROVIDERS: Emergency Provider Emergency Medicine; PCP Family Medicine
DX: N39.0 Urinary tract infection, site not specified (principal); M32.9 Systemic lupus erythematosus, unspecified
CPT/HCPCS: 36415; 80053; 81003; 81025; 85025; 96361; 96374; 99284; J2919

== ENCOUNTER 2024-11-12 10:02 | Emergency (ER) | payer SELFPAY ==
[2024-11-12 10:09] VITALS: BP 166/87; PULSE 67; RESP 18; TEMP 36.7; O2SAT 100; BMI 28.8
--- NOTE | 2024-11-12 10:17 | DI.RAD.S_ITS ---
PROCEDURE: XR CHEST 1V INDICATIONS: Chest Pain TECHNIQUE: One view of the chest was acquired. COMPARISON: [facility], CR, XR CHEST 1V, 07/28/2023, 9:13. FINDINGS: Surgical changes and devices: None. Lungs and pleura: Lungs are clear. No pleural effusions or pneumothorax. Mediastinum: Mediastinal contours appear normal. Heart size is normal. Bones and chest wall: No suspicious bony lesions. Overlying soft tissues appear unremarkable. IMPRESSION: No acute cardiopulmonary abnormality is seen. Dictated by: Mingo Amin M.D. on 11/12/2024 at 11:20 Approved by: Mingo Amin M.D. on 11/12/2024 at 11:20
--- NOTE | 2024-11-12 10:17 | EKG_ITS ---
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
[2024-11-12] MEDS: ASPIRIN 81 MG CHEW TAB 324 MG PO (10:22)
[2024-11-12 10:40] LABS: Add Manual Diff / Slide Review NO; Basophils Absolute Auto 100 /uL (0-100); Basophils Percent Auto 1.7 % (0-2); Eosinophils Absolute Auto 500 /uL (0-450); Hematocrit 43.3 % (36-46); Hemoglobin 13.7 g/dL (12.0-16.0); Lymphocytes Absolute Auto 2300 /uL (1100-4500); Lymphocytes Percent Auto 29.8 % (25-40); Mean Corpuscular HGB Conc 31.7 % (30-36); Mean Corpuscular Hemoglobin 22.7 PG (26-34); Mean Corpuscular Volume 71.7 fL (80-100); Monocytes Absolute Auto 600 /uL (0-900); Monocytes Percent Auto 7.6 % (3-14); Neutrophils Absolute Auto 4200 /uL (1500-7000); Neutrophils Percent Auto 53.9 % (50-75); Platelet Count 158 X10^3/uL (150-400); Red Blood Cell Count 6.05 X10^6/uL (4.0-5.2); Red Cell Distribution Width 14.3 % (11.6-14.8); White Blood Cell Count 7.8 X10^3/uL (4.5-11.0)
[2024-11-12 10:47] LABS: Prothrombin Time 11.8 SECONDS (9.4-12.5)
[2024-11-12 10:50] LABS: PTT Partial Thromboplastin Tim 39 SECONDS (25.1-36.5)
[2024-11-12 10:51] LABS: Alanine Aminotransferase 18 IU/L (<35); Albumin 4.6 g/dL (3.5-5.0); Albumin Globulin Ratio 1.4 (1.0-2.8); Alkaline Phosphatase 61 U/L (38-126); Aspartate Aminotransferase 24 IU/L (14-36); BUN Creatinine Ratio 11.7 (6-22); Bilirubin Total 0.5 mg/dL (0.2-1.3); Blood Urea Nitrogen 9 mg/dL (7-17); Calcium 9.5 mg/dL (8.4-10.2); Carbon Dioxide 24 mmol/L (22-32); Chloride 107 mmol/L (98-107); Creatine Kinase 94 U/L (30-135); Estimated Glomerular Filt Rate > 60 mL/min (>60); Globulin 3.2 g/dL (1.7-4.1); Glucose 89 mg/dL (70-99); HEMOLYSIS < 15 (0-50); Lactate (Lactic Acid) 0.6 mmol/L (0.7-2.1); Lipase 47 U/L (23-300); Magnesium 1.8 mg/dL (1.6-2.3); Potassium 4.3 mmol/L (3.4-5.1); Sodium 139 mmol/L (137-145); Total Protein 7.8 g/dL (6.3-8.2)
[2024-11-12 11:02] LABS: NT-proBNP (BNP-Adult 18+) 119 pg/mL (<125); Troponin I < 0.012 ng/mL (0.01-0.034)
[2024-11-12 11:15] LABS: COVID-19 CEPHEID 4-PLEX PCR Negative (Negative); Influenza A - CEPHEID Flu A NEGATIVE (NEGATIVE); Influenza B - CEPHEID Flu B NEGATIVE (NEGATIVE); Respiratory Syncytial Virus Negative (Negative)
[2024-11-12 12:47] LABS: Troponin I < 0.012 ng/mL (0.01-0.034)
--- NOTE | 2024-11-12 14:14 | ED.URI ---
HPI - URI/Sore Throat General Chief Complaint: Chest Pain Stated Complaint: SOB, fatigue, lightheadedness, cough Time Seen by Provider: 11/12/24 14:12 Source: patient Mode of arrival: Ambulatory History of Present Illness HPI Narrative: 29-year-old female history of lupus and psoriasis not on any immunosuppressant, occasional tobacco use, prescribed albuterol inhaler but denies history of asthma or COPD, hypertension, here with chief complaint of cough. Cough started 7 days ago, seemed to be coming more dry. She has had no known fever but did feel ?hot? yesterday at work. She has associated sore throat and congestion. She has some mild exertional dyspnea and chest pain with coughing. Denies any lower extremity edema, history of heart disease or PE/DVT. Daughter was ill with similar symptoms prior to patient. Related Data Home Medications Medication Instructions Recorded Confirmed nortriptyline 50 mg capsule 50 mg PO BEDTIME 01/25/23 02/16/24 Previous Rx's Medication Instructions Recorded albuterol sulfate 90 mcg/actuation 2 puff inhalation Q4-6H PRN 06/14/22 aerosol inhaler shortness of breath or wheezing #8.5 grams epinephrine 0.3 mg/0.3 mL 0.3 mg (0.3 mL) IM Q5-15M PRN 02/16/24 injection, auto-injector anaphylaxis #2 ea amlodipine 5 mg tablet 5 mg PO DAILY #90 tabs 04/17/24 prednisone 5 mg tablet 5 mg PO DAILY #60 tabs 06/19/24 albuterol sulfate 90 mcg/actuation 1 inh inhalation QID PRN shortness 11/12/24 aerosol inhaler of breath or wheezing #6.7 grams Allergies Allergy/AdvReac Type Severity Reaction Status Date / Time banana Allergy Severe Swelling Verified 02/16/24 10:24 to throat - extreme venom-honey bee Allergy Severe Swelling Verified 02/16/24 10:24 and SOB diphenhydramine Allergy Intermediate Itchy Verified 02/16/24 10:24 [From Benadryl Allergy] feeling to throat : makes me freak out Review of Systems Review of Systems Narrative: Negative except as stated in HPI Patient History Medical History Bee allergy status Peanut allergy Mixed anxiety depressive disorder Eczema (~2004) Acne (~2006) Allergies (~2001) History of bipolar disorder (~2008) Headache (~1998) Autism (~2015) ADHD (~2011) Shoulder pain (~2007) Foot pain (~2006) Chronic back pain (~2006) Carpal tunnel syndrome (~2011) Ankle pain (~2006) Anemia (~2002) Vertigo (~2013) Partial blindness (~2009) Painful menstrual periods (~2006) Heavy menstrual period (~2004) Hypertension (~2017) Smoker Marijuana use in remission (~05/2020) Joint pain (~2000) Fatigue Aspergers' syndrome Disordered eating Pneumonia Asthma (~2005) Social anxiety disorder (~1997) Depression (~2000) Anxiety (~1997) PTSD (post-traumatic stress disorder) (~2005) Syncopal episodes (~2018) History of being hospitalized (~2009) Finger fracture, left (~2007) Ankle fracture (~2004) Seizure (~2020) Migraine (~1998) History of lumbar puncture (~2011) Kidney stones (~2013) Lupus (~2000) Surgical History Anesthesia Surgical procedure planned Status post laser lithotripsy of ureteral calculus (~2013) S/P tonsillectomy and adenoidectomy (~1999) H/O dilation and curettage (~2009) Family History Mother Respiratory abnormalities Asthma History of prediabetes Bipolar 1 disorder Diabetes mellitus History of heart disease Mental health problem Father Family estrangement PTSD (post-traumatic stress disorder) Hypertension Mental health problem Grandmother Respiratory abnormalities Grandfather Stroke Rib fracture History of prediabetes High blood sugar Heart palpitations Alcohol addiction Depression Hypertension Hyperlipidemia Grandmother Family estrangement Grandfather Family estrangement Brother Asthma Family/Other Bipolar 1 disorder Social History marital status: unmarried,living together number of children: 0 household members: significant other lives independently: Yes pets and animals: No education level: high school occupational status: employed current occupational exposures/hazards: Yes special med needs: No Smoking Status: Current some day smoker Tobacco: How many years used: 20 second hand exposure: No alcohol intake: former substance use type: does not use and marijuana Smoking Status: Current some day smoker tobacco type: cigarettes alcohol intake frequency: 0-2 drinks per day Exam Initial Vital Signs Initial Vital Signs: Vital Signs Temperature 98.1 F 11/12/24 10:09 Pulse Rate 67 11/12/24 10:09 Respiratory Rate 18 11/12/24 10:09 Blood Pressure 166/87 H 11/12/24 10:09 Pulse Oximetry 100 11/12/24 10:09 Oxygen Delivery Method Room Air 11/12/24 10:09 Constitutional: 29-year-old female resting in the chair, wearing a mask, appears ill but nontoxic appearing Head: NCAT Neck: No JVD ENT: normal posterior pharynx. No erythema or exudate or swelling Cardiovascular: RRR, no murmur or rub, 2+ radial pulses Pulmonary: Occasional cough, dry, with wheeze with coughing, no respiratory distress Musculoskeletal: chest wall non tender Extremities: No LE edema or posterior calf/thigh pain Skin: warm and dry, no diaphoresis Neurological: Alert and oriented x3, normal speech, visual sol intact, normal strength in extremities Course Orders Ordered: ED Orders 11/12/24 10:17 XR chest 1V Stat EKG-12 Lead Stat RT Consult Eval and Treat NOW 11/12/24 10:20 Complete Blood Count AUTO DIFF Stat Comprehensive Metabolic Panel Stat Covid-19 + FLU A/B + RSV - PCR Stat Lactate (Lactic Acid) Stat Lipase Stat Magnesium Stat NT-proBNP (BNP-Adult 18+) Stat PTT Partial Thromboplastin [place] Stat Prothrombin Time INR Stat Troponin & CK Cardiac Panel Stat 11/12/24 12:19 Troponin I Stat Discontinued Medications Aspirin (Aspirin 81 Mg Chew Tab) 324 mg PO NOW ONE Stop: 11/12/24 10:18 Last Admin: 11/12/24 10:22 Dose: 324 mg Documented By: TRACEE Vital Signs Vital signs: Vital Signs - 8 hr 11/12/24 10:09 11/12/24 14:26 Temperature 98.1 F Pulse Rate 67 63 Respiratory Rate 18 Blood Pressure 166/87 H 149/88 H Pulse Oximetry 100 98 Oxygen Delivery Method Room Air Room Air MDM - URI/Sore Throat Lab Data 11/12/24 10:20 11/12/24 10:20 Labs: Lab Results 11/12/24 11/12/24 Range/Units 10:20 12:19 WBC 7.8 (4.5-11.0) X10^3/uL RBC 6.05 H (4.0-5.2) X10^6/uL Hgb 13.7 (12.0-16.0) g/dL Hct 43.3 (36-46) % MCV 71.7 L (80-100) fL MCH 22.7 L (26-34) PG MCHC 31.7 (30-36) % RDW 14.3 (11.6-14.8) % Plt Count 158 (150-400) X10^3/uL Neut % (Auto) 53.9 (50-75) % Lymph % (Auto) 29.8 (25-40) % [place] % (Auto) 7.6 (3-14) % Eos % (Auto) 7.0 H (2-4) % Baso % (Auto) 1.7 (0-2) % Neut # (Auto) 4200 (9354-6789) /uL Lymph # (Auto) 2300 (5786-5261) /uL [place] # (Auto) 600 (0-900) /uL Eos # (Auto) 500 H (0-450) /uL Baso # (Auto) 100 (0-100) /uL PT 11.8 (9.4-12.5) SECONDS INR 1.0 (0.9-1.3) APTT 39 H (25.1-36.5) SECONDS Sodium 139 (137-145) mmol/L Potassium 4.3 (3.4-5.1) mmol/L Chloride 107 (98-107) mmol/L Carbon Dioxide 24 (22-32) mmol/L BUN 9 (7-17) mg/dL Creatinine 0.77 (0.52-1.04) mg/dL Estimated GFR > 60 (>60) mL/min BUN/Creatinine Ratio 11.7 (6-22) Glucose 89 (70-99) mg/dL Lactate 0.6 L (0.7-2.1) mmol/L Calcium 9.5 (8.4-10.2) mg/dL Magnesium 1.8 (1.6-2.3) mg/dL Total Bilirubin 0.5 (0.2-1.3) mg/dL AST 24 (14-36) IU/L ALT 18 (<35) IU/L Alkaline Phosphatase 61 (38-126) U/L Total Creatine Kinase 94 (30-135) U/L Troponin I < 0.012 < 0.012 (0.01-0.034) ng/mL NT-Pro-B Natriuret Pep 119 (<125) pg/mL Total Protein 7.8 (6.3-8.2) g/dL Albumin 4.6 (3.5-5.0) g/dL Globulin 3.2 (1.7-4.1) g/dL Albumin/Globulin Ratio 1.4 (1.0-2.8) Lipase 47 (23-300) U/L SARS-CoV-2 (PCR) Negative (Negative) Influenza A (RT-PCR) Flu a negative (NEGATIVE) Influenza B (RT-PCR) Flu b negative (NEGATIVE) RSV (PCR) Negative (Negative) MDM Narrative Medical decision making narrative: 29-year-old female with comorbidites as stated above presents with one week of respiratory infectious symptoms. She has associated mild dyspnea with activity and chest pain with coughing. Here in ED pt is hypertensive with no fever or increased WOB. She is satting 98% on room air. No tachycardia. No clinical signs of DVT. Differential diagnoses considered in this patient include viral syndrome, pneumonia, arrhythmia, bronchitis. Low suspicion for PE or DVT in this young patient without vital sign abnormalities or active chest pain. Laboratories show no leukocytosis. WBC 7.8. No anemia. Normal CBC lactate, nonelevated serial troponins, SARS/RSV/flu negative. CXR IMPRESSION: No acute cardiopulmonary abnormality is seen. EKG 1021: NSR rate 68, normal intervals, normal axis. TWI in III, HUONG in V2. No contiguous KEARA/D On re-evaluation patient remains well-appearing vital signs are stable. Counseled this patient on signs symptoms of viral syndrome and bronchitis. We discussed supportive care at home for the latter. Did offer a refill of her albuterol metered-dose inhaler as this is something she has been prescribed in the past and does have slight wheeze with cough here in the ED. will refer to PCP for recheck. Return precautions discussed and provided prior to discharge Discharge Plan Departure Patient Disposition: Home Clinical Impression: Bronchitis Instructions: DI for Acute Bronchitis Activity Restrictions/Additional Instructions: Libia I am sorry you are feeling unwell. You likely contracted a viral infection from your daughter, and now maybe developing bronchitis (inflammation of the airways). Luckily, chest x-ray did not show any pneumonia and your laboratories are reassuring. The treatment for bronchitis is supportive, in other words, you should rest and be sure to drink plenty of fluids and have good nutrition at home. I have prescribed you an albuterol inhaler to use as needed for wheezing or shortness of breath as you recover. Antibiotics or steroids are not effective in reducing duration of illness in this scenario. Please follow-up with your family doctor within the next week for recheck. You may return to the emergency department at any time if you feel that your symptoms are worsening Some things that people find useful to treat cough is honey in hot tea and/or warm shower, humidifier in her room at night. Prescriptions: New albuterol sulfate 90 mcg/actuation HFA aerosol inhaler 1 inh inhalation QID PRN (Reason: shortness of breath or wheezing) Qty: 6.7 0RF No Action amlodipine 5 mg tablet 5 mg PO DAILY Qty: 90 1RF prednisone 5 mg tablet 5 mg PO DAILY Qty: 60 1RF epinephrine 0.3 mg/0.3 mL auto-injector 0.3 mg IM Q5-15M PRN (Reason: anaphylaxis) Qty: 2 0RF Rx Instructions: do not exceed 3 doses per episode nortriptyline 50 mg capsule 50 mg PO BEDTIME albuterol sulfate 90 mcg/actuation HFA aerosol inhaler 2 puff INHALATION Q4-6H PRN (Reason: shortness of breath or wheezing) Qty: 8.5 0RF Referrals: Bowen Medrano MD [Primary Care Provider] - Stand Alone Forms: Patient Portal/API/Survey, Work Release Note
[2024-11-12 14:26] VITALS: BP 149/88; PULSE 63; O2SAT 98
== END 2024-11-12 14:39 | disposition home or self-care (01) ==
PROVIDERS: Emergency Medicine; Emergency Provider Student in an Organized Health Care Education/Training Program; PCP Family Medicine
DX: J20.9 Acute bronchitis, unspecified (principal); Z72.0 Tobacco use
CPT/HCPCS: 0241U; 36415; 71045; 80053; 82550; 83605; 83690; 83735; 83880; 84484; 85025; 85610; 85730; 93005; 99284